=== PATIENT | male | born 1965 | race Caucasian/White ===

== ENCOUNTER 2018-06-20 16:38 | Inpatient (IN) | payer MEDICAID, OTHER ==
[~2018-06-20] VITALS: Ht 165.1 cm; Wt 73.9 kg
--- NOTE | 2018-06-20 17:24 | ERD ---
ER Documentation Chief Complaint Chief Complaint COUGH AND CHEST CONGESTION - SENT BY PCP WITH CD HPI 53-year-old gentleman who presents with his daughter who is interpreting in Tun[place]ian. The patient has had greater than 1 year of not feeling well. The patient went to a clinic recently and had a chest x-ray that showed possible le ft-sided effusion versus abnormality. Patient was sent to the emergency room for further evaluation. The patient does describe a cough for this timeframe that is dry nonproductive without hemoptysis. No fevers or chills. No pleuritic pain. ROS All systems reviewed and are negative except as per history of present illness. Allergies Allergies: Coded Allergies: No Known Allergy (Unverified , 06/20/18) FmHx Family History: No diabetes Physical Exam Vitals Vital Signs Date Temp Pulse Resp B/P (MAP) Pulse Ox O2 O2 Flow FiO2 Time Delivery Rate 06/20/18 Nasal 2 17:05 Cannula 06/20/18 99.3 93 17 154/101 96 16:41 (118) Physical Exam General: Well developed, well nourished, no acute distress Head: Normocephalic, atraumatic. Eyes: Pupils equally reactive, EOM intact ENT: Moist mucous membranes Neck: Supple, no lymphadenopathy Respiratory: Lungs clear bilaterally, no distress Cardiovascular: RRR, no murmurs, rubs, or gallops Abdominal: Soft, non-tender, non-distended, no peritoneal signs : Deferred MSK: No edema, no unilateral swelling, 5/5 strength Neurologic: Alert and oriented, moving all extremities, normal speech, no focal weakness, no cerebellar signs Skin: No rash Psych: Normal mood Result Diagram: 06/20/18 1722 06/20/18 1722 Results 24 hrs Laboratory Tests Test 06/20/18 17:22 White Blood Count 11.4 10^3/ul Red Blood Count 5.21 10^6/ul Hemoglobin 15.1 g/dl Hematocrit 44.6 % Mean Corpuscular Volume 85.6 fl Mean Corpuscular Hemoglobin 29.0 pg Mean Corpuscular Hemoglobin Concent 33.9 g/dl Red Cell Distribution Width 12.8 % Platelet Count 385 10^3/UL Mean Platelet Volume 9.0 fl Immature Granulocytes % 0.400 % Neutrophils % 70.6 % Lymphocytes % 19.2 % Monocytes % 7.5 % Eosinophils % 1.8 % Basophils % 0.5 % Nucleated Red Blood Cells % 0.0 /100WBC Immature Granulocytes # 0.040 10^3/ul Neutrophils # 8.1 10^3/ul Lymphocytes # 2.2 10^3/ul Monocytes # 0.9 10^3/ul Eosinophils # 0.2 10^3/ul Basophils # 0.1 10^3/ul Nucleated Red Blood Cells # 0.0 10^3/ul Prothrombin Time 13.8 Sec Prothrombin Time Ratio 1.1 INR International Normalized Ratio 1.05 Activated Partial Thromboplast Time 31.4 Sec Sodium Level 140 mmol/L Potassium Level 3.8 mmol/L Chloride Level 106 mmol/L Carbon Dioxide Level 24 mmol/L Anion Gap 10 Blood Urea Nitrogen 16 mg/dl Creatinine 0.76 mg/dl Est Glomerular Filtrat Rate mL/min > 60 mL/min Glucose Level 108 mg/dl Calcium Level 9.3 mg/dl Troponin I 0.014 ng/ml B-Type Natriuretic Peptide 41 PG/ML Current Medications Medications Dose Sig/Ji Start Time Status Last (Trade) Ordered Route PRN Stop Time Admin Dose Reason Admin Ondansetron 4 mg BRIDGE ORDER 06/20/18 HCl (Zofran PRN IV 20:00 Inj) NAUSEA/VOMITI 06/21/18 19:59 NG 650 mg ER BRIDGE 06/20/18 Acetaminophen PRN PO 20:00 (Tylenol .MILD PAIN 06/21/18 19:59 Tab) 1-3 OR TEMP Procedures/MDM EKG, MONITORS, & DIAGNOSTIC IMAGING: EKG: I reviewed and interpreted a 12-lead EKG. Rhythm: Normal sinus rhythm ST Changes: No contiguous ST segment elevations T waves: No contiguous T wave inversions Impression: No evidence of acute cardiac ischemia CT chest: IMPRESSION: 1. Very large, partially loculated, left pleural effusion. Near complete atelectasis of the left lung with relative aeration of the apex. 2. Suggestion of left pleural nodularity, most notably at the left lung apex measuring up to 2 cm in this region. Recommend CT chest with IV contrast for further evaluation. Neoplastic involvement not excluded. LAB INTERPRETATION: I reviewed the laboratory testing and it shows no evidence of acute process MEDICAL DECISION MAKING: The patient's presentation is consistent with greater than 1 year of not feeling well, abnormal chest x-ray. The differential is broad but strongly concerning for possible malignant process. Patient will benefit from laboratory testing to evaluate for cardiopulmonary process. CT imaging to definitively identify pulmonary process and abnormality. No signs or symptoms concerning for pulmonary embolism given the duration of symptoms I do not believe a CT PA would be indicated. ER COURSE: * CT consistent with a large left-sided pleural effusion concerning for malignant process. No evidence of pneumonia. Given duration of symptoms no indication for antibiotics. Admission for thoracentesis and further workup appropriate. CONSULTATION: None DISPOSITION PLAN: Accepting care team and consultations: I discussed the current laboratory data, diagnostic imaging and emergency care provided. Admitting team: Dr. Suero Admitting team indication: Insurance directed Departure Diagnosis: Primary Impression: Shortness of breath Additional Impression: Pleural effusion, left Condition: Stable NORAH CHEATHAM MD Jun 20, 2018 17:24
[2018-06-20] MEDS ORDERED: ACETAMINOPHEN 325 MG TAB PO PRN ×2 (20:00→20:30)
[2018-06-20] MEDS ORDERED: ONDANSETRON 4 MG INJ IV PRN (20:00)
[2018-06-20] MEDS ORDERED: ONDANSETRON 4 MG INJ IV STA (20:05)
[2018-06-20] MEDS ORDERED: morphine 4 MG/ML VIAL IV STA (20:05)
[2018-06-20] MEDS ORDERED: IOHEXOL 300MG/ML 150 ML BTL ONE (20:12)
[2018-06-20] MEDS ORDERED: SOD CHLORIDE 0.9% 100 ML ONE (20:12)
[2018-06-20] MEDS ORDERED: ONDANSETRON 4 MG TAB PO PRN (20:30)
[2018-06-20] MEDS ORDERED: NACL 0.9% 3 ML SYG IV SCH (20:30)
[2018-06-20] MEDS ORDERED: ALBUTEROL/IPRATROPIUM (NEB) 3 ML AMP HHN PRN (20:30)
[2018-06-20] MEDS ORDERED: DOCUSATE SODIUM 100 MG CAP PO PRN (20:30)
[2018-06-20] MEDS ORDERED: ENALAPRILAT 1.25 MG INJ IV PRN (20:30)
[2018-06-20 21:15] VITALS: BP 125/88; PULSE 87; RESP 19
[2018-06-20 21:25] VITALS: Ht 165.1 cm; Wt 73.9 kg
--- NOTE | 2018-06-20 21:27 | HP ---
Date/Time of Note Date/Time of Note DATE: 06/20/18 TIME: 21:26 Assessment/Plan VTE Prophylaxis SCD applied (from Nsg): Yes Pharmacological prophylaxis: NA/contraindicated Pharm contraindication: low risk/ambulating Lines/Catheters IV Catheter Type (from Nrsg): Saline Lock Assessment/Plan Hospital Course This is a 53-year-old male being admitted to the [facility] floor for: #1 left-sided lung mass with large pleural effusion: Concern for underlying malignancy. CT scan does show signs of a lung mass as well as effusion. At the current time will order a ultrasound-guided thoracentesis of the left lung with pleural fluid and cytology analysis. Will consult of hematology, and pulmonology Dr. Cai. #2 history of lung nodule/lesion: Patient apparently had a lung nodule lesion found back in 2011. Patient unfortunately did not pursue any further workup according to the son. #3 DVT GI prophylaxis: SCDs, no GI prophylaxis indicated Further treatment strategy will be implemented as per the clinical course. Result Diagram: 06/20/18 1722 06/20/18 1722 Results 24hrs Laboratory Tests Test 06/20/18 17:22 06/20/18 20:54 White Blood Count 11.4 H Red Blood Count 5.21 Hemoglobin 15.1 Hematocrit 44.6 Mean Corpuscular Volume 85.6 Mean Corpuscular Hemoglobin 29.0 Mean Corpuscular Hemoglobin Concent 33.9 Red Cell Distribution Width 12.8 Platelet Count 385 Mean Platelet Volume 9.0 Immature Granulocytes % 0.400 Neutrophils % 70.6 Lymphocytes % 19.2 Monocytes % 7.5 Eosinophils % 1.8 Basophils % 0.5 Nucleated Red Blood Cells % 0.0 Immature Granulocytes # 0.040 H Neutrophils # 8.1 H Lymphocytes # 2.2 Monocytes # 0.9 Eosinophils # 0.2 Basophils # 0.1 Nucleated Red Blood Cells # 0.0 Prothrombin Time 13.8 15.0 H Prothrombin Time Ratio 1.1 1.2 INR International Normalized Ratio 1.05 1.17 Activated Partial Thromboplast Time 31.4 30.1 Sodium Level 140 Potassium Level 3.8 Chloride Level 106 Carbon Dioxide Level 24 Anion Gap 10 Blood Urea Nitrogen 16 Creatinine 0.76 Est Glomerular Filtrat Rate mL/min > 60 Glucose Level 108 Calcium Level 9.3 Troponin I 0.014 B-Type Natriuretic Peptide 41 HPI/ROS Admit Date/Time Admit Date/Time Jun 20, 2018 at 19:35 Hx of Present Illness cc: sent from clinic abnormal chest xray. This is a 53-year-old male who presented from an outside clinic after have an abnormal chest x-ray. family members at the bedside. He does report that over the last month or so they have been noticing that he has had a cough. And when he is walking he has been noticeably more tired and having shortness of breath. Denies any recent fevers chills or nausea vomiting or diarrhea. Patient apparently was told that he had a lung nodule in 2011 however patient did not follow-up on this. His cough is nonproductive and he denies any hemoptysis. Denies any recent weight loss or chills or night sweats. Hx of smoking in the past. Allergies: NKDA Medications: None ROS Const: As per HPI Eyes : No pain discharge or redness or change in visual acuity ENT: No pain, sore throat, congestion, congestion, dysphagia or discharge Respiratory: As per HPI Cardiovascular: No chest pain, palpitation, PND, or edema GI : no change in appetite, abdominal pain, nausea, vomiting, diarrhea, constipation, or change in the color his stool Genitourinary: No dysuria, hematuria, flank pain , discharge or CVA tenderness Musculoskeletal: No joint pain, back pain, neck pain, restricted range of motion in neck or joints Skin: No rash, bruising or hives Neuro: No headache, dizziness, syncope, seizure, focal weakness Endocrine: No polyuria, polydipsia, temperature intolerance Psych: No hallucination, depression, anxiety or suicidal ideation PMH/Family/Social Past Medical History Medical History: no pertinent history Medications Current Medications Ondansetron HCl (Zofran Inj) 4 mg BRIDGE ORDER PRN IV NAUSEA/VOMITING; Start 06/20/18 at 20:00; Stop 06/21/18 at 19:59 IV Flush (NS 3 ml) 3 ml PER PROTOCOL IV ; Start 06/20/18 at 20:30 Ondansetron HCl (Zofran Tab) 4 mg Q6H PRN PO NAUSEA/VOMITING; Start 06/20/18 at 20:30 Acetaminophen (Tylenol Tab) 650 mg Q6H PRN PO .PAIN 1-3 OR TEMP; Start 06/20/18 at 20:30 Acetaminophen/ Hydrocodone Bitart ([place] (5/325)) 1 tab Q6H PRN PO .MOD PAIN 4- 6; Start 06/20/18 at 20:30 Docusate Sodium (Colace) 100 mg Q12H PRN PO .CONSTIPATION; Start 06/20/18 at 20:30 Bisacodyl (Dulcolax) 5 mg DAILY PRN PO .CONSTIPATION; Start 06/20/18 at 20:30 Enalaprilat (Vasotec Iv) 0.625 mg Q4H PRN IV ELEVATED BLOOD PRESSURE; Start 06/20/18 at 20:30 Albuterol/ Ipratropium (Duoneb) 3 ml Q4H RESP THERAPY PRN HHN SHORTNESS OF BREATH; Start 06/20/18 at 20:30 Benzonatate (Tessalon) 100 mg TID PO ; Start 06/20/18 at 21:00 Coded Allergies: No Known Allergy (Unverified , 06/20/18) Past Surgical History Past Surgical Hx: no surgical history Family History Significant Family History: no pertinent family hx Social History Alcohol Use: occasionally Smoking Status: Former smoker Drug Use: none Exam/Review of Systems Vital Signs Vitals Vital Signs Date Temp Pulse Resp B/P (MAP) Pulse Ox O2 O2 Flow FiO2 Time Delivery Rate 06/20/18 99.2 89 19 126/97 97 Nasal 20.0 20:58 (107) Cannula Exam Exam General: Patient is currently lying in bed he does not appear to be in any acute distress. HEENT: Atraumatic, normocephalic. The pupils are equal, round and reactive. Extraocular motor are intact Neck: Supple with full range of motion. No rigidity or meningismus Chest: Nontender Lungs: Diminished breath sounds throughout the left lung field, crackles,, good air movement and aeration to the right lung field Heart: Normal S1-S2, Regular rhythm and rate. Abdomen: Soft , nontender, nondistended , bowel sounds are present. No guarding no rebound tenderness , No masses or organomegaly. No costovertebral temporal angle mass Extremities: Normal to inspection, no edema no cyanosis Neurologic: Normal mental status, speech normal, cranial nerves II through XII are intact, motor and sensory are intact, Additional Comments PROCEDURE: CT Chest without contrast CLINICAL INDICATION: SOB and abnormal CXR x 1 yr TECHNIQUE: CT scan of the chest without contrast was performed on a multidetector CT scanner. The patient was scanned without intravenous contrast. Coronal and sagittal reformatted images were obtained from the axial source images. DICOM images are available. CTDIvol equals 11.86 mGy and the total exam DLP equals 506.78 mGy-cm. One or more of the following dose reduction techniques were used: - Automated exposure control. - Adjustment of the mA and/or kV according to patient size. - Use of iterative reconstruction technique. COMPARISON: FINDINGS: Lungs, Pleura, Airway: There is a very large, partially loculated, left pleural effusion causing contralateral rightward mediastinal shift. The left lung is nearly completely collapsed/atelectatic, with relative aeration of the lung apex. There is suggestion of pleural nodularity, most prominently at the left lung apex measuring approximately 2 cm (series 3 image 26). The right lung is clear other than mild dependent change of the right lung base Cardiovascular, Mediastinum: The heart is normal in size. There is no pericardial effusion. Ascending aorta measures up to 4 cm in diameter. Suboptimal evaluation of an underdistended esophagus is grossly unremarkable. Thyroid: Visualized portions are unremarkable. Lymph nodes: No adenopathy, noting limited evaluation of hilar nodes without IV contrast. Bones: Normal. Upper Abdomen: Visualized upper abdomen is unremarkable within limits of an unenhanced exam. IMPRESSION: 1. Very large, partially loculated, left pleural effusion. Near complete atelectasis of the left lung with relative aeration of the apex. 2. Suggestion of left pleural nodularity, most notably at the left lung apex measuring up to 2 cm in this region. Recommend CT chest with IV contrast for further evaluation. Neoplastic involvement not excluded. RPTAT: HH Physician Ivy Date Time Electronically viewed and signed by Physician Ivy on 06/20/2018 18:52 RP/ CC: NORAH CHEATHAM MD [id number] EKG: . Rhythm: Normal sinus rhythm ST Changes: No contiguous ST segment elevations T waves: No contiguous T wave inversions Impression: No evidence of acute cardiac ischemia TON GASCA Jun 20, 2018 21:27
[2018-06-20] MEDS: BENZONATATE 100 MG CAP PO SCH (21:36)
[2018-06-21] VITALS (10 sets, daily range): BP systolic 107–145; BP diastolic 73–89; PULSE 72–94; RESP 16–18
[2018-06-21] MEDS: HYDROCODONE/APAP (5/325) TAB PO PRN ×2 (04:42→20:11)
[2018-06-21] MEDS ORDERED: IOHEXOL 300MG/ML 150 ML BTL ONE (06:28)
[2018-06-21] MEDS ORDERED: LIDOCAINE 1% (MPF) 5 ML VIAL ONE (09:17)
[2018-06-21] MEDS: BENZONATATE 100 MG CAP PO SCH ×3 (09:40→20:06)
--- NOTE | 2018-06-21 12:38 | CONS ---
Assessment/Plan Assessment/Plan Hospital Course (Demo Recall) pleasant 53 yo with large pleural effusion and nodularity concerning for malignancy -no liver mets -s/p thoracentesis, send for cytology. if this is non small cell lung ca, would order mutational testing such as ALK, ROS, PDL1, EGFR, TMB, MET, RET, Her 2 -check MRI brain to rule out brain mets -malignant pleural effusion would stage him as Stage IV and he would not be a surgical candidate -check CEA -await above workup discussed with daughter at bedside Consultation Date/Type/Reason Admit Date/Time Jun 20, 2018 at 19:35 Date/Time of Note DATE: 06/21/18 TIME: 12:35 Hx of Present Illness This is a 53-year-old male came to Er for abnormal CXR showing lung mass and large effusion. Notes SOb with lying down and with exertion. No hemoptysis or weight loss. Apparently had Lung nodule 2011 but did not followup. Ct chest with contrast showed 06/20/18: Large left pleural effusion with near complete left lung atelectasis. The superior left upper lobe is partially aerated. Multifocal enhancing left pleural nodularity, consistent with neoplasm. CT AP with and w/o contrast showed 06/20/18: No CT evidence of mass, lymphadenopathy, or acute inflammatory process of the abdomen or pelvis. Redemonstrated large left pleural effusion with nodular regions of left pleural thickening. He will be undergoing pleurx placement and is s/p drainage of 2L via thoracentesis He is a lifetime non smoker, he is exposed to chemicals in paint Constitutional: no complaints, improved Eyes: no complaints ENT: no complaints Respiratory: cough, shortness of breath Cardiovascular: no complaints Gastrointestinal: no complaints Genitourinary: no complaints Musculoskeletal: no complaints Skin: no complaints Neurologic: no complaints Past Medical History Medical History: no pertinent history Medications Current Medications Ondansetron HCl (Zofran Inj) 4 mg BRIDGE ORDER PRN IV NAUSEA/VOMITING; Start 06/20/18 at 20:00; Stop 06/21/18 at 19:59 IV Flush (NS 3 ml) 3 ml PER PROTOCOL IV ; Start 06/20/18 at 20:30 Ondansetron HCl (Zofran Tab) 4 mg Q6H PRN PO NAUSEA/VOMITING; Start 06/20/18 at 20:30 Acetaminophen (Tylenol Tab) 650 mg Q6H PRN PO .PAIN 1-3 OR TEMP; Start 06/20/18 at 20:30 Acetaminophen/ Hydrocodone Bitart ([place] (5/325)) 1 tab Q6H PRN PO .MOD PAIN 4- 6 Last administered on 06/21/18at 04:42; Admin Dose 1 TAB; Start 06/20/18 at 20:30 Docusate Sodium (Colace) 100 mg Q12H PRN PO .CONSTIPATION; Start 06/20/18 at 20:30 Bisacodyl (Dulcolax) 5 mg DAILY PRN PO .CONSTIPATION; Start 06/20/18 at 20:30 Enalaprilat (Vasotec Iv) 0.625 mg Q4H PRN IV ELEVATED BLOOD PRESSURE; Start 06/20/18 at 20:30 Albuterol/ Ipratropium (Duoneb) 3 ml Q4H RESP THERAPY PRN HHN SHORTNESS OF BREATH; Start 06/20/18 at 20:30 Benzonatate (Tessalon) 100 mg TID PO Last administered on 06/21/18at 09:40; Admin Dose 100 MG; Start 06/20/18 at 21:00 Allergies: Coded Allergies: No Known Allergy (Unverified , 06/20/18) Past Surgical History Past Surgical Hx: no surgical history Social History Alcohol Use: occasionally Smoking Status: Never smoker Drug Use: none Exam/Review of Systems Exam Vitals Vital Signs Date Temp Pulse Resp B/P (MAP) Pulse Ox O2 O2 Flow FiO2 Time Delivery Rate 06/21/18 73 16 107/73 96 Nasal 09:16 (84) Cannula 06/21/18 97.6 08:03 06/21/18 2.0 08:00 Constitutional: alert, oriented, well developed Psych: no complaints, nl mood/affect Eyes: nl conjunctiva, EOMI, nl lids, nl sclera, PERRL Gastrointestinal: soft, nl liver, spleen, non-tender Musculoskeletal: nl extremities to inspection, nl gait and stance Results Result Diagram: 06/21/1816 06/21/18 0516 Results 24hrs Laboratory Tests Test 06/20/18 17:22 06/20/18 20:54 06/21/18 05:16 06/21/18 09:10 White Blood Count 11.4 H 10.1 Red Blood Count 5.21 4.90 Hemoglobin 15.1 14.1 Hematocrit 44.6 42.2 Mean Corpuscular 85.6 86.1 Volume Mean Corpuscular 29.0 28.8 L Hemoglobin Mean Corpuscular 33.9 33.4 Hemoglobin Concen t Red Cell 12.8 12.8 Distribution Width Platelet Count 385 374 Mean Platelet 9.0 8.9 Volume Immature 0.400 0.400 Granulocytes % Neutrophils % 70.6 61.3 Lymphocytes % 19.2 25.2 Monocytes % 7.5 9.3 Eosinophils % 1.8 3.2 Basophils % 0.5 0.6 Nucleated Red 0.0 0.0 Blood Cells % Immature 0.040 H 0.040 H Granulocytes # Neutrophils # 8.1 H 6.2 Lymphocytes # 2.2 2.5 Monocytes # 0.9 0.9 Eosinophils # 0.2 0.3 Basophils # 0.1 0.1 Nucleated Red 0.0 0.0 Blood Cells # Prothrombin Time 13.8 15.0 H Prothrombin Time 1.1 1.2 Ratio INR International 1.05 1.17 Normalized Ratio Activated 31.4 30.1 Partial Thrombopl ast Time Sodium Level 140 137 Potassium Level 3.8 3.9 Chloride Level 106 103 Carbon Dioxide 24 25 Level Anion Gap 10 9 Blood Urea 16 16 Nitrogen Creatinine 0.76 0.73 Est Glomerular > 60 > 60 Filtrat Rate mL/min Glucose Level 108 107 Calcium Level 9.3 9.0 Troponin I 0.014 B-Type 41 Natriuretic Peptide Hemoglobin A1c 5.6 Magnesium Level 2.2 Total Bilirubin 0.6 Direct Bilirubin 0.00 Indirect 0.6 Bilirubin Aspartate Amino 21 Transf (AST/SGOT) Alanine 38 Aminotransferase (ALT/SGPT) Alkaline 84 Phosphatase Lactate 379 1053 #H Dehydrogenase Total Protein 6.7 4.4 #L Albumin 3.6 Globulin 3.10 Albumin/Globulin 1.16 Ratio Triglycerides 90 Level Cholesterol Level 114 LDL Cholesterol, 70 Calculated HDL Cholesterol 26 L Cholesterol/HDL 4.3 Ratio Alpha Fetoprotein 1.10 Carcinoembryonic 1.6 Antigen CA 19-9 Antigen 4.9 CA 125 Antigen 10.5 Thyroid 2.420 Stimulating Hormone (TSH) Pathologist YES Review (Hematolog y) Body Fluid Type THORACENTESIS FL UID Body Fluid Volume 1050.0 Body Fluid Color YELLOW Body Fluid HAZY Appearance Body Fluid WBC 431 Body Fluid RBC 2000 (Auto) Body Fluid 14.2 Polynuclear WBCs (%) Body Fluid 85.8 Mononuclear Cells % Auto Body Fluid 93 Glucose Body Fluid Total 4.4 Protein Body Fluid 1060 Lactate Dehydroge nase Body Fluid 44 Amylase Medications Medication Current Medications Ondansetron HCl (Zofran Inj) 4 mg BRIDGE ORDER PRN IV NAUSEA/VOMITING; Start 06/20/18 at 20:00; Stop 06/21/18 at 19:59 IV Flush (NS 3 ml) 3 ml PER PROTOCOL IV ; Start 06/20/18 at 20:30 Ondansetron HCl (Zofran Tab) 4 mg Q6H PRN PO NAUSEA/VOMITING; Start 06/20/18 at 20:30 Acetaminophen (Tylenol Tab) 650 mg Q6H PRN PO .PAIN 1-3 OR TEMP; Start 06/20/18 at 20:30 Acetaminophen/ Hydrocodone Bitart ([place] (5/325)) 1 tab Q6H PRN PO .MOD PAIN 4- 6 Last administered on 06/21/18at 04:42; Admin Dose 1 TAB; Start 06/20/18 at 20:30 Docusate Sodium (Colace) 100 mg Q12H PRN PO .CONSTIPATION; Start 06/20/18 at 20:30 Bisacodyl (Dulcolax) 5 mg DAILY PRN PO .CONSTIPATION; Start 06/20/18 at 20:30 Enalaprilat (Vasotec Iv) 0.625 mg Q4H PRN IV ELEVATED BLOOD PRESSURE; Start 06/20/18 at 20:30 Albuterol/ Ipratropium (Duoneb) 3 ml Q4H RESP THERAPY PRN HHN SHORTNESS OF BREATH; Start 06/20/18 at 20:30 Benzonatate (Tessalon) 100 mg TID PO Last administered on 06/21/18at 09:40; Admin Dose 100 MG; Start 06/20/18 at 21:00 JERRICA LUNDBERG Jun 21, 2018 12:38
--- NOTE | 2018-06-21 14:20 | CONS ---
DATE OF ADMISSION: 06/20/2018 DATE OF CONSULTATION: REASON FOR CONSULTATION: Shortness of breath. Thank you, Dr. Suero, for this consultation. HISTORY OF PRESENT ILLNESS: This is a 53-year-old gentleman with no significant past medical history who presents with several-day history of increasing shortness of breath, orthopnea, PND, found to stevens ve significantly large left pleural effusion with compressive atelectasis. Denies any weight loss. There is no travel history. No sick contacts. No hemoptysis or hematemesis. Apparently had a histo ry of lung nodule in 2011. PAST MEDICAL HISTORY: A remote tobacco history. No history of TB. MEDICATIONS: Per chart. ALLERGIES: None. SOCIAL HISTORY: Current nonsmoker, no alcohol, no history of drug use. FAMILY HISTORY: Noncontributory. SYSTEMS REVIEW: A 12-point review of systems was negative other than that mentioned above. PHYSICAL EXAMINATION: GENERAL: Well-nourished, well-developed gentleman, comfortable at rest, no acute distress. VITAL SIGNS: Currently afebrile, pulse is 70, blood pressure 112/80, O2 saturation 96% on 2 L nasal cannula. NECK: Supple. No JVD or lymphadenopathy. CARDIAC: S1, S2, no added sounds or murmurs. CHEST: Diminished air entry bilaterally. ABDOMEN: Soft, nontender. No guarding or rebound. EXTREMITIES: No cyanosis, clubbing, 1+ edema. NEUROLOGIC: Generalized weakness, but no focal deficits. LABORATORY DATA: White count 10.1, hemoglobin 14.1, platelets within normal limits. INR was 1.17. Chemistry within normal limits. Initial pleural fluid studies demonstrate an elevated LDH and protei n consistent with an exudative effusion. ASSESSMENT: New onset left pleural effusion concerning for possible underlying malignant process in a patient with a remote tobacco history. The patient underwent 2 liter thoracentesis today, but stil l has probably 3 to 4 liters still in his pleural cavity. He will require chest tube placement for c omplete resolution of pleural effusion and then require subsequent CT chest when lung is reexpanded. Pleural fluid will be sent for cytology in addition. Dictated By: AMIRA SAMPSON MD SV/SADAF Conf#: [id number] DID#: [id number] CC: TON SUERO MD;*End*
--- NOTE | 2018-06-21 14:52 | PN ---
Date/Time of Note Date/Time of Note DATE: 06/21/18 TIME: 14:45 Assessment/Plan VTE Prophylaxis Risk score (from Ns)>0 risk: 1 SCD applied (from Ns): Yes Pharmacological prophylaxis: NA/contraindicated Pharm contraindication: low risk/ambulating Lines/Catheters IV [facility] Type (from [email or web address] Saline Lock Assessment/Plan Assessment/Plan 1. Left sided pleural effusion - concerning for malignancy in setting of remote smoking history and lung nodule - thoracentesis performed this am with 2L removed but repeat CXR shows no change. Pulm requested chest tube placement and will need repeat CT scan once lung reexpands - fluid sent for cytology - fluid appears exudative - Pulmonology on board and appreciate recommendations - Oncology recommendations appreciate as well and if non small cell will need further mutation studies ordered - CEA, CA 19, and CA125 within normal limits - MRI brain ordered to rule out mets - CT A/P negative for acute abnormalities except for large pleural effusion 2. h/o lung nodule in 2012 - patient did not follow up on lung nodule findings 3. Disposition - Awaiting placement of chest tube and will await cytology results of pleural fl uid Result Diagram: 06/21/18 0516 06/21/18 0516 Results 24hrs Laboratory Tests Test 06/20/18 17:22 06/20/18 20:54 06/21/18 05:16 06/21/18 09:10 White Blood Count 11.4 H 10.1 Red Blood Count 5.21 4.90 Hemoglobin 15.1 14.1 Hematocrit 44.6 42.2 Mean Corpuscular 85.6 86.1 Volume Mean Corpuscular 29.0 28.8 L Hemoglobin Mean Corpuscular 33.9 33.4 Hemoglobin Concen t Red Cell 12.8 12.8 Distribution Width Platelet Count 385 374 Mean Platelet 9.0 8.9 Volume Immature 0.400 0.400 Granulocytes % Neutrophils % 70.6 61.3 Lymphocytes % 19.2 25.2 Monocytes % 7.5 9.3 Eosinophils % 1.8 3.2 Basophils % 0.5 0.6 Nucleated Red 0.0 0.0 Blood Cells % Immature 0.040 H 0.040 H Granulocytes # Neutrophils # 8.1 H 6.2 Lymphocytes # 2.2 2.5 Monocytes # 0.9 0.9 Eosinophils # 0.2 0.3 Basophils # 0.1 0.1 Nucleated Red 0.0 0.0 Blood Cells # Prothrombin Time 13.8 15.0 H Prothrombin Time 1.1 1.2 Ratio INR International 1.05 1.17 Normalized Ratio Activated 31.4 30.1 Partial Thrombopl ast Time Sodium Level 140 137 Potassium Level 3.8 3.9 Chloride Level 106 103 Carbon Dioxide 24 25 Level Anion Gap 10 9 Blood Urea 16 16 Nitrogen Creatinine 0.76 0.73 Est Glomerular > 60 > 60 Filtrat Rate mL/min Glucose Level 108 107 Calcium Level 9.3 9.0 Troponin I 0.014 B-Type 41 Natriuretic Peptide Hemoglobin A1c 5.6 Magnesium Level 2.2 Total Bilirubin 0.6 Direct Bilirubin 0.00 Indirect 0.6 Bilirubin Aspartate Amino 21 Transf (AST/SGOT) Alanine 38 Aminotransferase (ALT/SGPT) Alkaline 84 Phosphatase Lactate 379 1053 #H Dehydrogenase Total Protein 6.7 4.4 #L Albumin 3.6 Globulin 3.10 Albumin/Globulin 1.16 Ratio Triglycerides 90 Level Cholesterol Level 114 LDL Cholesterol, 70 Calculated HDL Cholesterol 26 L Cholesterol/HDL 4.3 Ratio Alpha Fetoprotein 1.10 Carcinoembryonic 1.6 Antigen CA 19-9 Antigen 4.9 CA 125 Antigen 10.5 Thyroid 2.420 Stimulating Hormone (TSH) Pathologist YES Review (Hematolog y) Body Fluid Type THORACENTESIS FL UID Body Fluid Volume 1050.0 Body Fluid Color YELLOW Body Fluid HAZY Appearance Body Fluid WBC 431 Body Fluid RBC 2000 (Auto) Body Fluid 14.2 Polynuclear WBCs (%) Body Fluid 85.8 Mononuclear Cells % Auto Body Fluid 93 Glucose Body Fluid Total 4.4 Protein Body Fluid 1060 Lactate Dehydroge nase Body Fluid 44 Amylase Subjective 24 Hr Interval Summary Free Text/Dictation Patient denies any acute issues or respiratory distress. Discussed plan of care with family at bedside. Exam/Review of Systems Exam Vitals Vital Signs Date Temp Pulse Resp B/P (MAP) Pulse Ox O2 O2 Flow FiO2 Time Delivery Rate 06/21/18 97.4 75 18 132/75 93 Nasal 14:30 (94) Cannula 06/21/18 2.0 08:00 Exam General: Patient is currently lying in bed he does not appear to be in any acute distress. Neck: Supple Chest: Nontender Lungs: Diminished breath sounds left with basilar crackles, clear right, no wheezing appreciated Heart: Normal S1-S2, Regular rhythm and rate. no murmurs Abdomen: Soft , nontender, nondistended , bowel sounds are present. No guarding no rebound tenderness Extremities: Normal to inspection, no edema no cyanosis Results Results 24hrs Laboratory Tests Test 06/20/18 17:22 06/20/18 20:54 06/21/18 05:16 06/21/18 09:10 White Blood Count 11.4 H 10.1 Red Blood Count 5.21 4.90 Hemoglobin 15.1 14.1 Hematocrit 44.6 42.2 Mean Corpuscular 85.6 86.1 Volume Mean Corpuscular 29.0 28.8 L Hemoglobin Mean Corpuscular 33.9 33.4 Hemoglobin Concen t Red Cell 12.8 12.8 Distribution Width Platelet Count 385 374 Mean Platelet 9.0 8.9 Volume Immature 0.400 0.400 Granulocytes % Neutrophils % 70.6 61.3 Lymphocytes % 19.2 25.2 Monocytes % 7.5 9.3 Eosinophils % 1.8 3.2 Basophils % 0.5 0.6 Nucleated Red 0.0 0.0 Blood Cells % Immature 0.040 H 0.040 H Granulocytes # Neutrophils # 8.1 H 6.2 Lymphocytes # 2.2 2.5 Monocytes # 0.9 0.9 Eosinophils # 0.2 0.3 Basophils # 0.1 0.1 Nucleated Red 0.0 0.0 Blood Cells # Prothrombin Time 13.8 15.0 H Prothrombin Time 1.1 1.2 Ratio INR International 1.05 1.17 Normalized Ratio Activated 31.4 30.1 Partial Thrombopl ast Time Sodium Level 140 137 Potassium Level 3.8 3.9 Chloride Level 106 103 Carbon Dioxide 24 25 Level Anion Gap 10 9 Blood Urea 16 16 Nitrogen Creatinine 0.76 0.73 Est Glomerular > 60 > 60 Filtrat Rate mL/min Glucose Level 108 107 Calcium Level 9.3 9.0 Troponin I 0.014 B-Type 41 Natriuretic Peptide Hemoglobin A1c 5.6 Magnesium Level 2.2 Total Bilirubin 0.6 Direct Bilirubin 0.00 Indirect 0.6 Bilirubin Aspartate Amino 21 Transf (AST/SGOT) Alanine 38 Aminotransferase (ALT/SGPT) Alkaline 84 Phosphatase Lactate 379 1053 #H Dehydrogenase Total Protein 6.7 4.4 #L Albumin 3.6 Globulin 3.10 Albumin/Globulin 1.16 Ratio Triglycerides 90 Level Cholesterol Level 114 LDL Cholesterol, 70 Calculated HDL Cholesterol 26 L Cholesterol/HDL 4.3 Ratio Alpha Fetoprotein 1.10 Carcinoembryonic 1.6 Antigen CA 19-9 Antigen 4.9 CA 125 Antigen 10.5 Thyroid 2.420 Stimulating Hormone (TSH) Pathologist YES Review (Hematolog y) Body Fluid Type THORACENTESIS FL UID Body Fluid Volume 1050.0 Body Fluid Color YELLOW Body Fluid HAZY Appearance Body Fluid WBC 431 Body Fluid RBC 2000 (Auto) Body Fluid 14.2 Polynuclear WBCs (%) Body Fluid 85.8 Mononuclear Cells % Auto Body Fluid 93 Glucose Body Fluid Total 4.4 Protein Body Fluid 1060 Lactate Dehydroge nase Body Fluid 44 Amylase Medications Medication Current Medications Ondansetron HCl (Zofran Inj) 4 mg BRIDGE ORDER PRN IV NAUSEA/VOMITING; Start 06/20/18 at 20:00; Stop 06/21/18 at 19:59 IV Flush (NS 3 ml) 3 ml PER PROTOCOL IV ; Start 06/20/18 at 20:30 Ondansetron HCl (Zofran Tab) 4 mg Q6H PRN PO NAUSEA/VOMITING; Start 06/20/18 at 20:30 Acetaminophen (Tylenol Tab) 650 mg Q6H PRN PO .PAIN 1-3 OR TEMP; Start 06/20/18 at 20:30 Acetaminophen/ Hydrocodone Bitart ([place] (5/325)) 1 tab Q6H PRN PO .MOD PAIN 4- 6 Last administered on 06/21/18at 04:42; Admin Dose 1 TAB; Start 06/20/18 at 20:30 Docusate Sodium (Colace) 100 mg Q12H PRN PO .CONSTIPATION; Start 06/20/18 at 20:30 Bisacodyl (Dulcolax) 5 mg DAILY PRN PO .CONSTIPATION; Start 06/20/18 at 20:30 Enalaprilat (Vasotec Iv) 0.625 mg Q4H PRN IV ELEVATED BLOOD PRESSURE; Start 06/20/18 at 20:30 Albuterol/ Ipratropium (Duoneb) 3 ml Q4H RESP THERAPY PRN HHN SHORTNESS OF BREATH; Start 06/20/18 at 20:30 Benzonatate (Tessalon) 100 mg TID PO Last administered on 06/21/18at 14:04; Admin Dose 100 MG; Start 06/20/18 at 21:00 SHASHI SHIPLEY MD Jun 21, 2018 14:52
[2018-06-21] MEDS ORDERED: LIDOCAINE 1% (MDV) 20 ML INJ ONE (16:09)
[2018-06-21] MEDS ORDERED: morphine 2 MG INJ IV PRN (21:30)
[2018-06-22 02:25] VITALS: BP 115/68; PULSE 67; RESP 18
[2018-06-22 07:59] VITALS: BP 117/79; PULSE 71; RESP 18
[2018-06-22] MEDS: BENZONATATE 100 MG CAP PO SCH ×3 (08:39→21:28)
[2018-06-22] MEDS: BISACODYL (EC) 5 MG TAB PO PRN (08:48)
--- NOTE | 2018-06-22 11:39 | CONS ---
Consult Date/Type/Reason Admit Date/Time Jun 20, 2018 at 19:35 Initial Consult Date Type of Consult Pulmonary Date/Time of Note DATE: 06/22/18 TIME: 11:38 Subjective Patient comfortable following chest tube placement and significant drainage. Objective Vital Signs Date Temp Pulse Resp B/P (MAP) Pulse Ox O2 O2 Flow FiO2 Time Delivery Rate 06/22/18 97.7 71 18 117/79 98 07:59 (92) 06/21/18 Nasal 2.0 20:00 Cannula Intake and Output 06/21/18 06/21/18 06/22/18 1515:00 23:00 07:00 IntakeIntake Total 240 ml 240 ml 250 ml OutputOutput Total 1900 ml 2250 ml 600 ml BalanceBalance -1660 ml -2010 ml -350 ml Exam PHYSICAL EXAMINATION: GENERAL: Well-nourished, well-developed gentleman, comfortable at rest, no acute distress. VITAL SIGNS: NECK: Supple. No JVD or lymphadenopathy. CARDIAC: S1, S2, no added sounds or murmurs. CHEST: Diminished air entry bilaterally. ABDOMEN: Soft, nontender. No guarding or rebound. EXTREMITIES: No cyanosis, clubbing, 1+ edema. NEUROLOGIC: Generalized weakness, but no focal deficits. Results/Medications Result Diagram: 06/22/18 0439 06/22/18 0439 Results 24 hrs Laboratory Tests Test 06/22/18 04:39 White Blood Count 11.3 H Red Blood Count 5.31 Hemoglobin 15.2 Hematocrit 44.6 Mean Corpuscular Volume 84.0 Mean Corpuscular Hemoglobin 28.6 L Mean Corpuscular Hemoglobin Concent 34.1 Red Cell Distribution Width 12.5 Platelet Count 367 Mean Platelet Volume 9.0 Immature Granulocytes % 0.300 Neutrophils % 67.5 Lymphocytes % 21.7 Monocytes % 7.9 Eosinophils % 2.2 Basophils % 0.4 Nucleated Red Blood Cells % 0.0 Immature Granulocytes # 0.030 Neutrophils # 7.6 H Lymphocytes # 2.5 Monocytes # 0.9 Eosinophils # 0.3 Basophils # 0.1 Nucleated Red Blood Cells # 0.0 Sodium Level 138 Potassium Level 3.9 Chloride Level 102 Carbon Dioxide Level 27 Anion Gap 9 Blood Urea Nitrogen 14 Creatinine 0.72 Est Glomerular Filtrat Rate mL/min > 60 Glucose Level 106 Calcium Level 8.9 Phosphorus Level 4.5 Magnesium Level 2.3 Medications Current Medications IV Flush (NS 3 ml) 3 ml PER PROTOCOL IV ; Start 06/20/18 at 20:30 Ondansetron HCl (Zofran Tab) 4 mg Q6H PRN PO NAUSEA/VOMITING; Start 06/20/18 at 20:30 Acetaminophen (Tylenol Tab) 650 mg Q6H PRN PO .PAIN 1-3 OR TEMP; Start 06/20/18 at 20:30 Acetaminophen/ Hydrocodone Bitart ([place] (5/325)) 1 tab Q6H PRN PO .MOD PAIN 4- 6 Last administered on 06/21/18 20:11; Admin Dose 1 TAB; Start 06/20/18 at 20:30 Docusate Sodium (Colace) 100 mg Q12H PRN PO .CONSTIPATION Last administered on 06/22/18 08:48; Admin Dose 100 MG; Start 06/20/18 at 20:30 Bisacodyl (Dulcolax) 5 mg DAILY PRN PO .CONSTIPATION Last administered on 06/22/18 08:48; Admin Dose 5 MG; Start 06/20/18 at 20:30 Enalaprilat (Vasotec Iv) 0.625 mg Q4H PRN IV ELEVATED BLOOD PRESSURE; Start 06/20/18 at 20:30 Albuterol/ Ipratropium (Duoneb) 3 ml Q4H RESP THERAPY PRN HHN SHORTNESS OF BREATH; Start 06/20/18 at 20:30 Benzonatate (Tessalon) 100 mg TID PO Last administered on 06/22/18 08:39; Admin Dose 100 MG; Start 06/20/18 at 21:00 Morphine Sulfate (morphine) 1 mg Q4H PRN IV SEVERE PAIN LEVEL 7-10 Last administered on 06/21/18 21:23; Admin Dose 1 MG; Start 06/21/18 at 21:30 Assessment/Plan Hospital Course (Demo Recall) Assessment 1. Acute hypoxemic respiratory failure secondary to large left pleural effusion. 2. Pleural effusion exudative in nature concerning for possible malignancy lymphoma versus primary lung CA. 3. History of remote tobacco use. Plan 1. Continue chest tube drainage. 2. Await pleural fluid cytology results 3. CT chest noncontrast tomorrow to reevaluate left lung parenchyma following drainage of pleural effusion. Long discussion with family at bedside. AMIRA SAMPSON MD, [facility] Jun 22, 2018 11:39
--- NOTE | 2018-06-22 13:16 | PN ---
Date/Time of Note Date/Time of Note DATE: 06/22/18 TIME: 13:11 Assessment/Plan VTE Prophylaxis Risk score (from Ns)>0 risk: 2 SCD applied (from Ns): Yes Pharmacological prophylaxis: NA/contraindicated Pharm contraindication: low risk/ambulating Lines/Catheters [facility] Saline Lock Assessment/Plan Assessment/Plan 1. Left sided pleural effusion s/p chest tube placement - high concern for malignancy - Pulm on board and appreciate recommendations. CT scan chest tomorrow to reevaluate L leg parenchyma given fluid drained since previous CT scan - MRI, CT A/P negative for any signs of metastasis - Fluid sent for cx and cytology. bacterial cx no growth to day. AFB and fungal cx still pending - Oncology recommendations appreciated and awaiting results of cytology - CEA, CA 19, and CA125 within normal limits 2. h/o lung nodule in 2011 - patient did not follow up on lung nodule findings 3. Disposition - Continue chest tube to gravity. Will order repeat CT scan chest tomorrow to assess Left lung Result Diagram: 06/22/18 0439 06/22/18 0439 Results 24hrs Laboratory Tests Test 06/22/18 04:39 White Blood Count 11.3 H Red Blood Count 5.31 Hemoglobin 15.2 Hematocrit 44.6 Mean Corpuscular Volume 84.0 Mean Corpuscular Hemoglobin 28.6 L Mean Corpuscular Hemoglobin Concent 34.1 Red Cell Distribution Width 12.5 Platelet Count 367 Mean Platelet Volume 9.0 Immature Granulocytes % 0.300 Neutrophils % 67.5 Lymphocytes % 21.7 Monocytes % 7.9 Eosinophils % 2.2 Basophils % 0.4 Nucleated Red Blood Cells % 0.0 Immature Granulocytes # 0.030 Neutrophils # 7.6 H Lymphocytes # 2.5 Monocytes # 0.9 Eosinophils # 0.3 Basophils # 0.1 Nucleated Red Blood Cells # 0.0 Sodium Level 138 Potassium Level 3.9 Chloride Level 102 Carbon Dioxide Level 27 Anion Gap 9 Blood Urea Nitrogen 14 Creatinine 0.72 Est Glomerular Filtrat Rate mL/min > 60 Glucose Level 106 Calcium Level 8.9 Phosphorus Level 4.5 Magnesium Level 2.3 Subjective 24 Hr Interval Summary Free Text/Dictation Patients doing well and remains comfortable respiratory roth. Chest tube in place and draining serous fluid. Exam/Review of Systems Exam Vitals Vital Signs Date Temp Pulse Resp B/P (MAP) Pulse Ox O2 O2 Flow FiO2 Time Delivery Rate 06/22/18 97.7 71 18 117/79 98 07:59 (92) 06/21/18 Nasal 2.0 20:00 Cannula Intake and Output 06/21/18 06/21/18 06/22/18 1515:00 23:00 07:00 IntakeIntake Total 240 ml 240 ml 250 ml OutputOutput Total 1900 ml 2250 ml 600 ml BalanceBalance -1660 ml -2010 ml -350 ml Exam General: Patient is currently lying in bed he does not appear to be in any acute distress. Neck: Supple Chest: Nontender Lungs: Diminished breath sounds left with basilar crackles, clear right, no wheezing appreciated Heart: Normal S1-S2, Regular rhythm and rate. no murmurs Abdomen: Soft , nontender, nondistended , bowel sounds are present. No guarding no rebound tenderness Extremities: Normal to inspection, no edema no cyanosis Results Results 24hrs Laboratory Tests Test 06/22/18 04:39 White Blood Count 11.3 H Red Blood Count 5.31 Hemoglobin 15.2 Hematocrit 44.6 Mean Corpuscular Volume 84.0 Mean Corpuscular Hemoglobin 28.6 L Mean Corpuscular Hemoglobin Concent 34.1 Red Cell Distribution Width 12.5 Platelet Count 367 Mean Platelet Volume 9.0 Immature Granulocytes % 0.300 Neutrophils % 67.5 Lymphocytes % 21.7 Monocytes % 7.9 Eosinophils % 2.2 Basophils % 0.4 Nucleated Red Blood Cells % 0.0 Immature Granulocytes # 0.030 Neutrophils # 7.6 H Lymphocytes # 2.5 Monocytes # 0.9 Eosinophils # 0.3 Basophils # 0.1 Nucleated Red Blood Cells # 0.0 Sodium Level 138 Potassium Level 3.9 Chloride Level 102 Carbon Dioxide Level 27 Anion Gap 9 Blood Urea Nitrogen 14 Creatinine 0.72 Est Glomerular Filtrat Rate mL/min > 60 Glucose Level 106 Calcium Level 8.9 Phosphorus Level 4.5 Magnesium Level 2.3 Medications Medication Current Medications IV Flush (NS 3 ml) 3 ml PER PROTOCOL IV ; Start 06/20/18 at 20:30 Ondansetron HCl (Zofran Tab) 4 mg Q6H PRN PO NAUSEA/VOMITING; Start 06/20/18 at 20:30 Acetaminophen (Tylenol Tab) 650 mg Q6H PRN PO .PAIN 1-3 OR TEMP; Start 06/20/18 at 20:30 Acetaminophen/ Hydrocodone Bitart ([place] (5/325)) 1 tab Q6H PRN PO .MOD PAIN 4- 6 Last administered on 06/21/18 20:11; Admin Dose 1 TAB; Start 06/20/18 at 20:30 Docusate Sodium (Colace) 100 mg Q12H PRN PO .CONSTIPATION Last administered on 06/22/18 08:48; Admin Dose 100 MG; Start 06/20/18 at 20:30 Bisacodyl (Dulcolax) 5 mg DAILY PRN PO .CONSTIPATION Last administered on 06/22/18 08:48; Admin Dose 5 MG; Start 06/20/18 at 20:30 Enalaprilat (Vasotec Iv) 0.625 mg Q4H PRN IV ELEVATED BLOOD PRESSURE; Start 06/20/18 at 20:30 Albuterol/ Ipratropium (Duoneb) 3 ml Q4H RESP THERAPY PRN HHN SHORTNESS OF BREATH; Start 06/20/18 at 20:30 Benzonatate (Tessalon) 100 mg TID PO Last administered on 06/22/18 08:39; Admin Dose 100 MG; Start 06/20/18 at 21:00 Morphine Sulfate (morphine) 1 mg Q4H PRN IV SEVERE PAIN LEVEL 7-10 Last administered on 06/21/18 21:23; Admin Dose 1 MG; Start 06/21/18 at 21:30 SHASHI SHIPLEY MD Jun 22, 2018 13:16
[2018-06-22 13:52] VITALS: BP 115/66; PULSE 84; RESP 18
--- NOTE | 2018-06-22 17:05 | CONS ---
Assessment/Plan Assessment/Plan Assessment/Plan (Daily) TThis is a 53-year-old male came to [facility] for abnormal CXR showing lung mass and large effusion. Notes SOb with lying down and with exertion. No hemoptysis or weight loss. Apparently had Lung nodule 2011 but did not followup. - 06/20/18 Ct chest with contrast showed: Large left pleural effusion with near complete left lung atelectasis. The superior left upper lobe is partially aerated.Multifocal enhancing left pleural nodularity, consistent with neoplasm. No CT evidence of mass, lymphadenopathy, or acute inflammatory process of the abdomen or pelvis. -Re-demonstrated large left pleural effusion with nodular regions of left pleural thickening. -SP pleurx placement and is s/p drainage of 2L via thoracentesis # 06/20/18 CT AP with and w/o contrast showed : - No CT evidence of mass, lymphadenopathy, or acute inflammatory process of the abdomen or pelvis. # He is a lifetime non smoker, he is exposed to chemicals in paint. Patient seen in collaboration with Dr Garza. Consultation Date/Type/Reason Admit Date/Time Jun 20, 2018 at 19:35 Initial Consult Date Type of Consult ONCOLOGY Reason for Consultation LUNG MASS Date/Time of Note DATE: 06/22/18 TIME: 16:59 24 HR Interval Summary Free Text/Dictation c/o shortness lying down and with exertion. denies any hemoptysis or weight loss. Apparently had Lung nodule 2011 but did not followup. family at bed side- all Qs answered. no new issues reported last night dw staff Constitutional: requiring O2 Detailed Summary Eyes: no complaints ENT: no complaints Respiratory: shortness of breath (on exertion/lying down), other (left chest- inscion pain ) Cardiovascular: no complaints Gastrointestinal: no complaints Genitourinary: no complaints Musculoskeletal: other (generelized weakness) Skin: no complaints Neurologic: no complaints Endocrine: no complaints Psychological: nl mood/affect Immunologic: no complaints Exam/Review of Systems Exam Vitals Vital Signs Date Temp Pulse Resp B/P (MAP) Pulse Ox O2 O2 Flow FiO2 Time Delivery Rate 06/22/18 98.8 84 18 115/66 98 Nasal 13:52 (82) Cannula 06/22/18 2.0 08:00 Intake and Output 06/21/18 06/21/18 06/22/18 1515:00 23:00 07:00 IntakeIntake Total 240 ml 240 ml 250 ml OutputOutput Total 1900 ml 2250 ml 600 ml BalanceBalance -1660 ml -2010 ml -350 ml Constitutional: alert, oriented, well developed Psych: nl mood/affect Head: normocephalic Eyes: nl lids, nl sclera ENMT: nl external ears & nose Neck: non-tender Respiratory: diminished breath sounds (left lung sound diminhes > rt lung ), other (left chest pleural cath noted; intact; drainig bloody drrainage) Cardiovascular: nl pulses, other (s1s2) Gastrointestinal: soft, non-tender Musculoskeletal: nl extremities to inspection Extremities: normal pulses Neurological: nl mental status, nl speech Skin: nl turgor Results Result Diagram: 06/22/1843806/22/18438 Results 24hrs Laboratory Tests Test 06/22/18 04:39 White Blood Count 11.3 H Red Blood Count 5.31 Hemoglobin 15.2 Hematocrit 44.6 Mean Corpuscular Volume 84.0 Mean Corpuscular Hemoglobin 28.6 L Mean Corpuscular Hemoglobin Concent 34.1 Red Cell Distribution Width 12.5 Platelet Count 367 Mean Platelet Volume 9.0 Immature Granulocytes % 0.300 Neutrophils % 67.5 Lymphocytes % 21.7 Monocytes % 7.9 Eosinophils % 2.2 Basophils % 0.4 Nucleated Red Blood Cells % 0.0 Immature Granulocytes # 0.030 Neutrophils # 7.6 H Lymphocytes # 2.5 Monocytes # 0.9 Eosinophils # 0.3 Basophils # 0.1 Nucleated Red Blood Cells # 0.0 Sodium Level 138 Potassium Level 3.9 Chloride Level 102 Carbon Dioxide Level 27 Anion Gap 9 Blood Urea Nitrogen 14 Creatinine 0.72 Est Glomerular Filtrat Rate mL/min > 60 Glucose Level 106 Calcium Level 8.9 Phosphorus Level 4.5 Magnesium Level 2.3 Medications Medication Current Medications IV Flush (NS 3 ml) 3 ml PER PROTOCOL IV ; Start 06/20/18 at 20:30 Ondansetron HCl (Zofran Tab) 4 mg Q6H PRN PO NAUSEA/VOMITING; Start 06/20/18 at 20:30 Acetaminophen (Tylenol Tab) 650 mg Q6H PRN PO .PAIN 1-3 OR TEMP; Start 06/20/18 at 20:30 Acetaminophen/ Hydrocodone Bitart ([place] (5/325)) 1 tab Q6H PRN PO .MOD PAIN 4- 6 Last administered on 06/21/18 20:11; Admin Dose 1 TAB; Start 06/20/18 at 20:30 Docusate Sodium (Colace) 100 mg Q12H PRN PO .CONSTIPATION Last administered on 06/22/18 08:48; Admin Dose 100 MG; Start 06/20/18 at 20:30 Bisacodyl (Dulcolax) 5 mg DAILY PRN PO .CONSTIPATION Last administered on 06/22/18 08:48; Admin Dose 5 MG; Start 06/20/18 at 20:30 Enalaprilat (Vasotec Iv) 0.625 mg Q4H PRN IV ELEVATED BLOOD PRESSURE; Start 06/20/18 at 20:30 Albuterol/ Ipratropium (Duoneb) 3 ml Q4H RESP THERAPY PRN HHN SHORTNESS OF BREATH; Start 06/20/18 at 20:30 Benzonatate (Tessalon) 100 mg TID PO Last administered on 06/22/18 13:40; Admin Dose 100 MG; Start 06/20/18 at 21:00 Morphine Sulfate (morphine) 1 mg Q4H PRN IV SEVERE PAIN LEVEL 7-10 Last administered on 06/21/18 21:23; Admin Dose 1 MG; Start 06/21/18 at 21:30 JOE WARNER Jun 22, 2018 17:05
[2018-06-22 19:52] VITALS: BP 120/71; PULSE 96; RESP 18
[2018-06-23 01:51] VITALS: BP 108/73; PULSE 81
[2018-06-23 07:11] VITALS: BP 109/72; PULSE 75; RESP 17
[2018-06-23] MEDS: BENZONATATE 100 MG CAP PO SCH ×3 (08:13→20:55)
[2018-06-23] MEDS ORDERED: POLYETHYLENE GLYCOL 17 GM PACKET PO PRN (09:00)
--- NOTE | 2018-06-23 10:33 | CONS ---
Consult Date/Type/Reason Admit Date/Time Jun 20, 2018 at 19:35 Initial Consult Date Type of Consult Pulmonary Date/Time of Note DATE: 06/23/18 TIME: 10:31 Subjective Patient comfortable this morning. Less shortness of breath. Decreased chest tube output also. Objective Vital Signs Date Temp Pulse Resp B/P (MAP) Pulse Ox O2 O2 Flow FiO2 Time Delivery Rate 06/23/18 98.3 75 17 109/72 94 Nasal 07:11 (84) Cannula 06/23/18 2.0 05:37 Intake and Output 06/22/18 06/22/18 06/23/18 1515:00 23:00 07:00 IntakeIntake Total 640 ml 240 ml OutputOutput Total 700 ml 1050 ml BalanceBalance 640 ml -700 ml -810 ml Exam PHYSICAL EXAMINATION: GENERAL: Well-nourished, well-developed gentleman, comfortable at rest, no acute distress. VITAL SIGNS: NECK: Supple. No JVD or lymphadenopathy. CARDIAC: S1, S2, 2/6 systolic ejection murmur. CHEST: Diminished air entry bilaterally. ABDOMEN: Soft, nontender. No guarding or rebound. EXTREMITIES: No cyanosis, clubbing, no edema NEUROLOGIC: Generalized weakness, but no focal deficits. Results/Medications Result Diagram: 06/22/18 0439 06/22/18 0439 Medications Current Medications IV Flush (NS 3 ml) 3 ml PER PROTOCOL IV ; Start 06/20/18 at 20:30 Ondansetron HCl (Zofran Tab) 4 mg Q6H PRN PO NAUSEA/VOMITING; Start 06/20/18 at 20:30 Acetaminophen (Tylenol Tab) 650 mg Q6H PRN PO .PAIN 1-3 OR TEMP; Start 06/20/18 at 20:30 Acetaminophen/ Hydrocodone Bitart ([place] (5/325)) 1 tab Q6H PRN PO .MOD PAIN 4- 6 Last administered on 06/21/18at 20:11; Admin Dose 1 TAB; Start 06/20/18 at 20:30 Docusate Sodium (Colace) 100 mg Q12H PRN PO .CONSTIPATION Last administered on 06/22/18at 08:48; Admin Dose 100 MG; Start 06/20/18 at 20:30 Bisacodyl (Dulcolax) 5 mg DAILY PRN PO .CONSTIPATION Last administered on 06/22/18at 08:48; Admin Dose 5 MG; Start 06/20/18 at 20:30 Enalaprilat (Vasotec Iv) 0.625 mg Q4H PRN IV ELEVATED BLOOD PRESSURE; Start 06/20/18 at 20:30 Albuterol/ Ipratropium (Duoneb) 3 ml Q4H RESP THERAPY PRN HHN SHORTNESS OF BREATH; Start 06/20/18 at 20:30 Benzonatate (Tessalon) 100 mg TID PO Last administered on 06/23/18at 08:13; Admin Dose 100 MG; Start 06/20/18 at 21:00 Morphine Sulfate (morphine) 1 mg Q4H PRN IV SEVERE PAIN LEVEL 7-10 Last administered on 06/21/18at 21:23; Admin Dose 1 MG; Start 06/21/18 at 21:30 Polyethylene Glycol (Miralax) 17 gm DAILY PRN PO CONSTIPATION; Start 06/23/18 at 09:00 Assessment/Plan Hospital Course (Demo Recall) Assessment 1. Acute hypoxemic respiratory failure secondary to large left pleural effusion. 2. Pleural effusion exudative in nature concerning for possible malignancy lymphoma versus primary lung CA. 3. History of remote tobacco use. Plan 1. Continue chest tube drainage. 2. Await pleural fluid cytology results 3. CT chest noncontrast today following drainage of pleural effusion. Discussed with patient and family at bedside. AMIRA SAMPSON MD, [facility] Jun 23, 2018 10:33
--- NOTE | 2018-06-23 12:33 | PN ---
Date/Time of Note Date/Time of Note DATE: 06/23/18 TIME: 12:29 Assessment/Plan VTE Prophylaxis Risk score (from Ns)>0 risk: 2 SCD applied (from Ns): Yes Pharmacological prophylaxis: NA/contraindicated Pharm contraindication: low risk/ambulating Lines/Catheters [facility] [place] Urinary Cath still in place: No Assessment/Plan Assessment/Plan 1. Left sided pleural effusion s/p chest tube placement - Repeat CT scan shows minimal pleural effusion and changes consistent with carcinomatosis - Pulm on board and appreciate recommendations. Continue chest tube - MRI, CT A/P negative for any signs of metastasis - Pleural fluid cytology pending. cx negative to date - Oncology recommendations appreciated. - CEA, CA 19, and CA125 within normal limits 2. h/o lung nodule in 2011 - patient did not follow up on lung nodule findings 3. Disposition - Continue chest tube drainage. Fluid cytology pending and plan of care based on results Result Diagram: 06/22/18 0439 06/22/18 0439 Subjective 24 Hr Interval Summary Free Text/Dictation Patient denies any acute issues. CT findings discussed with family and patient. Per nursing, patient has minimal drainage from chest tube but increases with ambulation. Exam/Review of Systems Exam Vitals Vital Signs Date Temp Pulse Resp B/P (MAP) Pulse Ox O2 O2 Flow FiO2 Time Delivery Rate 06/23/18 Nasal 2.0 08:00 Cannula 06/23/18 98.3 75 17 109/72 94 07:11 (84) Intake and Output 06/22/18 06/22/18 06/23/18 1515:00 23:00 07:00 IntakeIntake Total 640 ml 240 ml OutputOutput Total 700 ml 1050 ml BalanceBalance 640 ml -700 ml -810 ml Exam General: Patient is currently lying in bed he does not appear to be in any acute distress. Neck: Supple Chest: Nontender Lungs: Diminished breath sounds, no wheezing appreciated Heart: Normal S1-S2, Regular rhythm and rate. no murmurs Abdomen: Soft , nontender, nondistended , bowel sounds are present. No guarding no rebound tenderness Extremities: Normal to inspection, no edema no cyanosis Medications Medication Current Medications IV Flush (NS 3 ml) 3 ml PER PROTOCOL IV ; Start 06/20/18 at 20:30 Ondansetron HCl (Zofran Tab) 4 mg Q6H PRN PO NAUSEA/VOMITING; Start 06/20/18 at 20:30 Acetaminophen (Tylenol Tab) 650 mg Q6H PRN PO .PAIN 1-3 OR TEMP; Start 06/20/18 at 20:30 Acetaminophen/ Hydrocodone Bitart ([place] (5/325)) 1 tab Q6H PRN PO .MOD PAIN 4- 6 Last administered on 06/21/18 20:11; Admin Dose 1 TAB; Start 06/20/18 at 20:30 Docusate Sodium (Colace) 100 mg Q12H PRN PO .CONSTIPATION Last administered on 06/22/18 08:48; Admin Dose 100 MG; Start 06/20/18 at 20:30 Bisacodyl (Dulcolax) 5 mg DAILY PRN PO .CONSTIPATION Last administered on 06/22/18 08:48; Admin Dose 5 MG; Start 06/20/18 at 20:30 Enalaprilat (Vasotec Iv) 0.625 mg Q4H PRN IV ELEVATED BLOOD PRESSURE; Start 06/20/18 at 20:30 Albuterol/ Ipratropium (Duoneb) 3 ml Q4H RESP THERAPY PRN HHN SHORTNESS OF BREATH; Start 06/20/18 at 20:30 Benzonatate (Tessalon) 100 mg TID PO Last administered on 06/23/18 08:13; Admin Dose 100 MG; Start 06/20/18 at 21:00 Morphine Sulfate (morphine) 1 mg Q4H PRN IV SEVERE PAIN LEVEL 7-10 Last administered on 06/21/18 21:23; Admin Dose 1 MG; Start 06/21/18 at 21:30 Polyethylene Glycol (Miralax) 17 gm DAILY PRN PO CONSTIPATION; Start 06/23/18 at 09:00 SHASHI SHIPLEY MD Jun 23, 2018 12:33
--- NOTE | 2018-06-23 13:25 | CONS ---
Assessment/Plan Assessment/Plan Assessment/Plan (Daily) This is a 53-year-old male came to Er for abnormal CXR showing lung mass and large effusion. Notes SOb with lying down and with exertion. No hemoptysis or weight loss. Apparently had Lung nodule 2011 but did not followup. - 06/20/18 Ct chest with contrast showed: Large left pleural effusion with near complete left lung atelectasis. The superior left upper lobe is partially aerated.Multifocal enhancing left pleural nodularity, consistent with neoplasm. No CT evidence of mass, lymphadenopathy, or acute inflammatory process of the abdomen or pelvis. -Re-demonstrated large left pleural effusion with nodular regions of left pleural thickening. -SP pleurx placement and is s/p drainage of 2L via thoracentesis # 06/20/18 CT AP with and w/o contrast showed : No CT evidence of mass, lymphadenopathy, or acute inflammatory process of the abdomen or pelvis. - 06/23/18 CT chest without IV contrast : Left pleural carcinomatosis. Interval placement of a left-sided pleural drainage catheter. Mild residual left pleural effusion is noted, significantly decreased in size. Tiny residual left pneumothorax is present (less than 5%). - He is a lifetime non smoker, he is exposed to chemicals in paint. Patient seen in collaboration with Dr Garza. Consultation Date/Type/Reason Admit Date/Time Jun 20, 2018 at 19:35 Initial Consult Date Type of Consult ONCOLOGY Reason for Consultation LUNG MASS Date/Time of Note DATE: 06/23/18 TIME: 13:18 24 HR Interval Summary Free Text/Dictation c/o shortness lying down and with exertion. denies any hemoptysis or weight loss. Apparently had Lung nodule 2011 but did not followup. will get repeated CT chest today family at bed side- all Qs answered. no new issues reported last night dw staff Constitutional: requiring O2 Exam/Review of Systems Exam Vitals Vital Signs Date Temp Pulse Resp B/P (MAP) Pulse Ox O2 O2 Flow FiO2 Time Delivery Rate 06/23/18 Nasal 2.0 08:00 Cannula 06/23/18 98.3 75 17 109/72 94 07:11 (84) Intake and Output 06/22/18 06/22/18 06/23/18 1515:00 23:00 07:00 IntakeIntake Total 640 ml 240 ml OutputOutput Total 700 ml 1050 ml BalanceBalance 640 ml -700 ml -810 ml Constitutional: alert Results Result Diagram: 06/22/18 0439 06/22/18 0439 Medications Medication Current Medications IV Flush (NS 3 ml) 3 ml PER PROTOCOL IV ; Start 06/20/18 at 20:30 Ondansetron HCl (Zofran Tab) 4 mg Q6H PRN PO NAUSEA/VOMITING; Start 06/20/18 at 20:30 Acetaminophen (Tylenol Tab) 650 mg Q6H PRN PO .PAIN 1-3 OR TEMP; Start 06/20/18 at 20:30 Acetaminophen/ Hydrocodone Bitart ([place] (5/325)) 1 tab Q6H PRN PO .MOD PAIN 4- 6 Last administered on 06/21/18 20:11; Admin Dose 1 TAB; Start 06/20/18 at 20:30 Docusate Sodium (Colace) 100 mg Q12H PRN PO .CONSTIPATION Last administered on 06/22/18 08:48; Admin Dose 100 MG; Start 06/20/18 at 20:30 Bisacodyl (Dulcolax) 5 mg DAILY PRN PO .CONSTIPATION Last administered on 06/22/18 08:48; Admin Dose 5 MG; Start 06/20/18 at 20:30 Enalaprilat (Vasotec Iv) 0.625 mg Q4H PRN IV ELEVATED BLOOD PRESSURE; Start 06/20/18 at 20:30 Albuterol/ Ipratropium (Duoneb) 3 ml Q4H RESP THERAPY PRN HHN SHORTNESS OF BREATH; Start 06/20/18 at 20:30 Benzonatate (Tessalon) 100 mg TID PO Last administered on 06/23/18 08:13; Admin Dose 100 MG; Start 06/20/18 at 21:00 Morphine Sulfate (morphine) 1 mg Q4H PRN IV SEVERE PAIN LEVEL 7-10 Last administered on 06/21/18 21:23; Admin Dose 1 MG; Start 06/21/18 at 21:30 Polyethylene Glycol (Miralax) 17 gm DAILY PRN PO CONSTIPATION; Start 06/23/18 at 09:00 JOE WARNER Jun 23, 2018 13:25
[2018-06-23 14:09] VITALS: BP 99/58; PULSE 86; RESP 17
[2018-06-23 19:41] VITALS: BP 118/75; PULSE 85; RESP 18
[2018-06-24 02:16] VITALS: BP 112/77; PULSE 79; RESP 18
[2018-06-24 07:51] VITALS: BP 115/78; PULSE 77; RESP 18
[2018-06-24] MEDS: BENZONATATE 100 MG CAP PO SCH ×3 (08:46→20:30)
[2018-06-24] MEDS: BISACODYL (EC) 5 MG TAB PO PRN (08:46)
--- NOTE | 2018-06-24 12:10 | CONS ---
Consult Date/Type/Reason Admit Date/Time Jun 20, 2018 at 19:35 Initial Consult Date Type of Consult Pulmonary Date/Time of Note DATE: 06/24/18 TIME: 12:09 Subjective Patient remained stable overnight. Decreased chest tube output. CT chest noted with pleural carcinomatosis. Objective Vital Signs Date Temp Pulse Resp B/P (MAP) Pulse Ox O2 O2 Flow FiO2 Time Delivery Rate 06/24/18 Nasal 2.0 08:30 Cannula 06/24/18 97.5 77 18 115/78 97 07:51 (90) Intake and Output 06/23/18 06/23/18 06/24/18 1515:00 23:00 07:00 IntakeIntake Total 600 ml 360 ml OutputOutput Total 1390 ml BalanceBalance 600 ml -1030 ml Exam PHYSICAL EXAMINATION: GENERAL: Well-nourished, well-developed gentleman, comfortable at rest, no acute distress. VITAL SIGNS: NECK: Supple. No JVD or lymphadenopathy. CARDIAC: S1, S2, 2/6 systolic ejection murmur. CHEST: Diminished air entry bilaterally. ABDOMEN: Soft, nontender. No guarding or rebound. EXTREMITIES: No cyanosis, clubbing, no edema NEUROLOGIC: Generalized weakness, but no focal deficits. Results/Medications Result Diagram: 06/24/188 06/24/188 Results 24 hrs Laboratory Tests Test 06/24/18 04:48 White Blood Count 11.2 H Red Blood Count 5.46 Hemoglobin 15.8 Hematocrit 46.6 Mean Corpuscular Volume 85.3 Mean Corpuscular Hemoglobin 28.9 L Mean Corpuscular Hemoglobin Concent 33.9 Red Cell Distribution Width 12.4 Platelet Count 396 Mean Platelet Volume 9.0 Immature Granulocytes % 0.400 Neutrophils % 65.7 Lymphocytes % 20.0 Monocytes % 8.7 Eosinophils % 4.5 Basophils % 0.7 Nucleated Red Blood Cells % 0.0 Immature Granulocytes # 0.040 H Neutrophils # 7.4 Lymphocytes # 2.2 Monocytes # 1.0 H Eosinophils # 0.5 Basophils # 0.1 Nucleated Red Blood Cells # 0.0 Sodium Level 137 Potassium Level 4.2 Chloride Level 101 Carbon Dioxide Level 28 Anion Gap 8 Blood Urea Nitrogen 17 Creatinine 0.71 Glucose Level 105 Calcium Level 8.9 Phosphorus Level 4.1 Magnesium Level 2.3 Albumin 3.4 Medications Current Medications IV Flush (NS 3 ml) 3 ml PER PROTOCOL IV ; Start 06/20/18 at 20:30 Ondansetron HCl (Zofran Tab) 4 mg Q6H PRN PO NAUSEA/VOMITING; Start 06/20/18 at 20:30 Acetaminophen (Tylenol Tab) 650 mg Q6H PRN PO .PAIN 1-3 OR TEMP; Start 06/20/18 at 20:30 Acetaminophen/ Hydrocodone Bitart ([place] (5/325)) 1 tab Q6H PRN PO .MOD PAIN 4- 6 Last administered on 06/21/18 20:11; Admin Dose 1 TAB; Start 06/20/18 at 20:30 Docusate Sodium (Colace) 100 mg Q12H PRN PO .CONSTIPATION Last administered on 06/22/18 08:48; Admin Dose 100 MG; Start 06/20/18 at 20:30 Bisacodyl (Dulcolax) 5 mg DAILY PRN PO .CONSTIPATION Last administered on 06/24/18 08:46; Admin Dose 5 MG; Start 06/20/18 at 20:30 Enalaprilat (Vasotec Iv) 0.625 mg Q4H PRN IV ELEVATED BLOOD PRESSURE; Start 06/20/18 at 20:30 Albuterol/ Ipratropium (Duoneb) 3 ml Q4H RESP THERAPY PRN HHN SHORTNESS OF BREATH; Start 06/20/18 at 20:30 Benzonatate (Tessalon) 100 mg TID PO Last administered on 06/24/18 08:46; Admin Dose 100 MG; Start 06/20/18 at 21:00 Morphine Sulfate (morphine) 1 mg Q4H PRN IV SEVERE PAIN LEVEL 7-10 Last administered on 06/21/18 21:23; Admin Dose 1 MG; Start 06/21/18 at 21:30 Polyethylene Glycol (Miralax) 17 gm DAILY PRN PO CONSTIPATION Last administered on 06/24/18 08:46; Admin Dose 17 GM; Start 06/23/18 at 09:00 Assessment/Plan Hospital Course (Demo Recall) Assessment 1. Acute hypoxemic respiratory failure secondary to large left pleural effusion. 2. Pleural effusion exudative in nature concerning for possible malignancy lymphoma versus primary lung CA. pleural carcinomatosis noted. 3. History of remote tobacco use. Plan 1. Continue chest tube drainage. 2. Await pleural fluid cytology results 3. If pleural fluid cytology negative patient will need thoracic surgery evaluation for pleural biopsy. Discussed with patient and family at bedside. AMIRA SAMPSON MD, [facility] Jun 24, 2018 12:10
--- NOTE | 2018-06-24 12:29 | PN ---
Date/Time of Note Date/Time of Note DATE: 06/24/18 TIME: 12:29 Objective Vitals Vital Signs Date Temp Pulse Resp B/P (MAP) Pulse Ox O2 O2 Flow FiO2 Time Delivery Rate 06/24/18 Nasal 2.0 08:30 Cannula 06/24/18 97.5 77 18 115/78 97 07:51 (90) Intake and Output 06/23/18 06/23/18 06/24/18 1515:00 23:00 07:00 IntakeIntake Total 600 ml 360 ml OutputOutput Total 1390 ml BalanceBalance 600 ml -1030 ml Results Result Diagram: 06/24/18 0448 06/24/18 0448 Medications Medications Current Medications IV Flush (NS 3 ml) 3 ml PER PROTOCOL IV ; Start 06/20/18 at 20:30 Ondansetron HCl (Zofran Tab) 4 mg Q6H PRN PO NAUSEA/VOMITING; Start 06/20/18 at 20:30 Acetaminophen (Tylenol Tab) 650 mg Q6H PRN PO .PAIN 1-3 OR TEMP; Start 06/20/18 at 20:30 Acetaminophen/ Hydrocodone Bitart ([place] (5/325)) 1 tab Q6H PRN PO .MOD PAIN 4- 6 Last administered on 06/21/18at 20:11; Admin Dose 1 TAB; Start 06/20/18 at 20:30 Docusate Sodium (Colace) 100 mg Q12H PRN PO .CONSTIPATION Last administered on 06/22/18 08:48; Admin Dose 100 MG; Start 06/20/18 at 20:30 Bisacodyl (Dulcolax) 5 mg DAILY PRN PO .CONSTIPATION Last administered on 06/24/18 08:46; Admin Dose 5 MG; Start 06/20/18 at 20:30 Enalaprilat (Vasotec Iv) 0.625 mg Q4H PRN IV ELEVATED BLOOD PRESSURE; Start 06/20/18 at 20:30 Albuterol/ Ipratropium (Duoneb) 3 ml Q4H RESP THERAPY PRN HHN SHORTNESS OF BREATH; Start 06/20/18 at 20:30 Benzonatate (Tessalon) 100 mg TID PO Last administered on 06/24/18 08:46; Admin Dose 100 MG; Start 06/20/18 at 21:00 Morphine Sulfate (morphine) 1 mg Q4H PRN IV SEVERE PAIN LEVEL 7-10 Last administered on 06/21/18at 21:23; Admin Dose 1 MG; Start 06/21/18 at 21:30 Polyethylene Glycol (Miralax) 17 gm DAILY PRN PO CONSTIPATION Last administered on 06/24/18at 08:46; Admin Dose 17 GM; Start 06/23/18 at 09:00 VTE Prophylaxis Risk score (from [facility]0 risk: 1 SCD applied (from [facility] [place] No SCD contraindication: other Lines/Catheters IV Catheter Type: Talavera in Place: No Assessment/Plan Hospital Course Subjective Patient doing well, breathing has improved with chest tube drainage Objective Physical exam General: Patient is laying in bed and answers questions appropriately Mentation: Patient is alert and oriented 4, Head: Normocephalic atraumatic Eyes: EOMI, pupils reactive to light Neck: Supple, nontender, midline Respiratory: Coarse to auscultation bilaterally Cardiovascular: regular rate, murmur heard Gastrointestinal: non-tender to palpation, bowel sounds heard. Neurological: Moves all extremities spontaneously Skin: No new skin lesions Assessment/Plan 1. Left sided pleural effusion s/p chest tube placement - Repeat CT scan shows minimal pleural effusion and changes consistent with carcinomatosis - Pulm on board and appreciate recommendations. Continue chest tube - MRI, CT A/P negative for any signs of metastasis - Pleural fluid cytology pending. cx negative to date - Oncology recommendations appreciated. - CEA, CA 19, and CA125 within normal limits 2. h/o lung nodule in 2011 - patient did not follow up on lung nodule findings 3. Disposition - Continue chest tube drainage. Fluid cytology pending and plan of care based on results. Specialists doubt infectious etiology at this time, patient not showing signs of active infection, no fevers will need to monitor closely. ISIDORO SHEPPARD Jun 24, 2018 12:29
[2018-06-24 13:34] VITALS: BP 111/78; PULSE 90; RESP 20
--- NOTE | 2018-06-24 14:13 | CONS ---
Assessment/Plan Assessment/Plan Hospital Course (Demo Recall) pleasant 53 yo with large pleural effusion and nodularity concerning for malignancy -no liver mets -s/p thoracentesis, send for cytology, await path report. if this is non small cell lung ca, would order mutational testing such as ALK, ROS, PDL1, EGFR, TMB, MET, RET, Her 2 -s/p pleurex - MRI brain done to rule out brain mets--NEGATIVE -malignant pleural effusion would stage him as Stage IV and he would not be a surgical candidate -await path report before we can make treatment recommendations once patient is stable from a medical perspective, he is ok for discharge and can follow up in my office to discuss final pathology results and treatment plan discussed with daughter at bedside Consultation Date/Type/Reason Admit Date/Time Jun 20, 2018 at 19:35 Initial Consult Date Date/Time of Note DATE: 06/24/18 TIME: 14:13 Exam/Review of Systems Exam Vitals Vital Signs Date Temp Pulse Resp B/P (MAP) Pulse Ox O2 O2 Flow FiO2 Time Delivery Rate 06/24/18 98.7 90 20 111/78 97 13:34 (89) 06/24/18 Nasal 2.0 08:30 Cannula Intake and Output 06/23/18 06/23/18 06/24/18 1515:00 23:00 07:00 IntakeIntake Total 600 ml 360 ml OutputOutput Total 1390 ml BalanceBalance 600 ml -1030 ml Results Result Diagram: 06/24/18 0448 06/24/18 0448 Results 24hrs Laboratory Tests Test 06/24/18 04:48 White Blood Count 11.2 H Red Blood Count 5.46 Hemoglobin 15.8 Hematocrit 46.6 Mean Corpuscular Volume 85.3 Mean Corpuscular Hemoglobin 28.9 L Mean Corpuscular Hemoglobin Concent 33.9 Red Cell Distribution Width 12.4 Platelet Count 396 Mean Platelet Volume 9.0 Immature Granulocytes % 0.400 Neutrophils % 65.7 Lymphocytes % 20.0 Monocytes % 8.7 Eosinophils % 4.5 Basophils % 0.7 Nucleated Red Blood Cells % 0.0 Immature Granulocytes # 0.040 H Neutrophils # 7.4 Lymphocytes # 2.2 Monocytes # 1.0 H Eosinophils # 0.5 Basophils # 0.1 Nucleated Red Blood Cells # 0.0 Sodium Level 137 Potassium Level 4.2 Chloride Level 101 Carbon Dioxide Level 28 Anion Gap 8 Blood Urea Nitrogen 17 Creatinine 0.71 Glucose Level 105 Calcium Level 8.9 Phosphorus Level 4.1 Magnesium Level 2.3 Albumin 3.4 Medications Medication Current Medications IV Flush (NS 3 ml) 3 ml PER PROTOCOL IV ; Start 06/20/18 at 20:30 Ondansetron HCl (Zofran Tab) 4 mg Q6H PRN PO NAUSEA/VOMITING; Start 06/20/18 at 20:30 Acetaminophen (Tylenol Tab) 650 mg Q6H PRN PO .PAIN 1-3 OR TEMP; Start 06/20/18 at 20:30 Acetaminophen/ Hydrocodone Bitart ([place] (5/325)) 1 tab Q6H PRN PO .MOD PAIN 4- 6 Last administered on 06/21/18 20:11; Admin Dose 1 TAB; Start 06/20/18 at 20:30 Docusate Sodium (Colace) 100 mg Q12H PRN PO .CONSTIPATION Last administered on 06/22/18 08:48; Admin Dose 100 MG; Start 06/20/18 at 20:30 Bisacodyl (Dulcolax) 5 mg DAILY PRN PO .CONSTIPATION Last administered on 06/24/18 08:46; Admin Dose 5 MG; Start 06/20/18 at 20:30 Enalaprilat (Vasotec Iv) 0.625 mg Q4H PRN IV ELEVATED BLOOD PRESSURE; Start 06/20/18 at 20:30 Albuterol/ Ipratropium (Duoneb) 3 ml Q4H RESP THERAPY PRN HHN SHORTNESS OF BREATH; Start 06/20/18 at 20:30 Benzonatate (Tessalon) 100 mg TID PO Last administered on 06/24/18 13:09; Admin Dose 100 MG; Start 06/20/18 at 21:00 Morphine Sulfate (morphine) 1 mg Q4H PRN IV SEVERE PAIN LEVEL 7-10 Last administered on 06/21/18 21:23; Admin Dose 1 MG; Start 06/21/18 at 21:30 Polyethylene Glycol (Miralax) 17 gm DAILY PRN PO CONSTIPATION Last administered on 06/24/18 08:46; Admin Dose 17 GM; Start 06/23/18 at 09:00 JERRICA LUNDBERG Jun 24, 2018 14:13
--- NOTE | 2018-06-24 14:21 | RADRPT ---
Echocardiogram Report Patient Name: FLORENCE LIZARRAGAPatient ID: [id number] : 1965 (53y 2m)Study Date: 06/21/2018 8:10:46 AM Gender: MAccession #: [id number] Tech: Alec Bañuelos RDCS Location: 8349 Ref.Physician: TON GASCA Height(Cm): BSA: Weight(Kg): Quality: Technically Difficult StudyAccount #: Procedures: Echocardiographic Report: Transthoracic echocardiogram with complete 2D, M-Mode, and doppler examination. Indications: large pleural effusion. Measurements: 2D/M Mode Doppler Measurement Value Normal Range Measurement Value Normal Range LVIDd 2D 4.0 [ 4.2 - 5.8 ] cm AV Mean Ramiro 1.4 [ 70.0 - 90.0 ] cm/sec LVIDs 2D 2.0 [ 2.5 - 4.0 ] cm AV Mean PG 9.0 [ 2.0 - 4.0 ] mmHg LVPWd 2D 1.0 [ 0.6 - 1.0 ] cm AV Peak Ramiro 2.0 [ 100.0 - 170.0 ] cm/sec IVSd 2D 1.0 [ 0.6 - 1.0 ] cm AV Peak PG 17.0 [ 2.0 - 9.0 ] mmHg IVS/LVPW 2D 1.0 ratio AV VTI 33.7 cm AoR Diam 2D 2.6 [ 2.6 - 3.4 ] cm LVOT Mean Ramiro 0.5 [ 60.0 - 80.0 ] cm/sec LA/Ao 2D 1 ratio LVOT Mean PG 1.0 [ 1.0 - 3.0 ] mmHg LA Dimen 2D 2.7 [ 3.0 - 4.0 ] cm LVOT Peak Ramiro 0.8 [ 70.0 - 110.0 ] cm/sec LVOT Peak PG 3.0 [ 2.0 - 6.0 ] mmHg LVOT VTI 16.5 [ 20.0 - 30.0 ] cm MV E Peak Ramiro 0.6 [ 60.0 - 130.0 ] cm/sec MV A Peak Ramiro 0.7 [ 100.0 - 120.0 ] cm/sec MV E/A 0.9 [ 0.8 - 1.5 ] ratio MV Decel Time 162 [ 104 - 258 ] msec Lat E` Ramiro 0.1 [ 10.0 - 15.0 ] cm/sec MV E/A 0.9 [ 0.8 - 1.5 ] ratio TR Peak Ramiro 2.0 [ 100.0 - 280.0 ] cm/sec TR Peak PG 16.0 mmHg RVSP 24.0 [ 10.0 - 36.0 ] mmHg RA Pressure 15.0 mmHg Findings: Left Ventricle: Overall, normal left ventricular systolic function. Not all segments visualized. Normal left ventricular cavity size. Mild concentric left ventricular hypertrophy. Ejection fraction is visually estimated at 55 %. Tissue Doppler/Mitral Doppler indices are consistent with impaired relaxation (Stage I diastolic dysfunction). Right Ventricle: Normal right ventricular size. Normal right ventricular systolic function. Left Atrium: The left atrium is normal in size. Right Atrium: The right atrium is normal in size. Mitral Valve: Mitral valve is not well visualized. Mild mitral annular calcification. Trace mitral regurgitation. Aortic Valve: No significant aortic stenosis or insufficiency. Aortic valve not well visualized. Trace aortic valve regurgitation. Tricuspid Valve: Tricuspid valve not well visualized. Estimated peak PA systolic pressure 31 mmHg. There is trace tricuspid regurgitation. Pulmonic Valve: Normal pulmonic valve appearance. Pericardium: Normal pericardium with no significant pericardial effusion. Pleural effusion seen. Aorta: Normal aortic root. IVC: Dilated IVC with respiratory collapse consistent with elevated right atrial pressure. Conclusions: Overall, normal left ventricular systolic function. Not all segments visualized. Normal left ventricular cavity size. Mild concentric left ventricular hypertrophy. Ejection fraction is visually estimated at 55 %. Tissue Doppler/Mitral Doppler indices are consistent with impaired relaxation (Stage I diastolic dysfunction). Normal right ventricular size. Normal right ventricular systolic function. No significant valvular stenosis or regurgitation seen. Normal pericardium with no significant pericardial effusion. Pleural effusion seen. Electronically Signed By: José Miguel Gates 2018-06-24 14:20:36 PDT
[2018-06-24 20:00] VITALS: BP 109/77; PULSE 88; RESP 19
[2018-06-25 02:00] VITALS: BP 104/71; PULSE 85; RESP 18
[2018-06-25 08:04] VITALS: BP 111/79; PULSE 95; RESP 20
[2018-06-25] MEDS: BENZONATATE 100 MG CAP PO SCH ×3 (09:10→21:14)
--- NOTE | 2018-06-25 10:44 | PN ---
Date/Time of Note Date/Time of Note DATE: 06/25/18 TIME: 10:44 Objective Vitals Vital Signs Date Temp Pulse Resp B/P (MAP) Pulse Ox O2 O2 Flow FiO2 Time Delivery Rate 06/25/18 2.0 08:06 06/25/18 98.2 95 20 111/79 94 08:04 (90) 06/24/18 Nasal 21:00 Cannula Intake and Output 06/24/18 06/24/18 06/25/18 1515:00 23:00 07:00 IntakeIntake Total 1080 ml 720 ml OutputOutput Total 20 ml BalanceBalance 1080 ml 700 ml Results Result Diagram: 06/25/18 0738 06/25/18 0738 Medications Medications Current Medications IV Flush (NS 3 ml) 3 ml PER PROTOCOL IV ; Start 06/20/18 at 20:30 Ondansetron HCl (Zofran Tab) 4 mg Q6H PRN PO NAUSEA/VOMITING; Start 06/20/18 at 20:30 Acetaminophen (Tylenol Tab) 650 mg Q6H PRN PO .PAIN 1-3 OR TEMP; Start 06/20/18 at 20:30 Acetaminophen/ Hydrocodone Bitart ([place] (5/325)) 1 tab Q6H PRN PO .MOD PAIN 4- 6 Last administered on 06/21/18at 20:11; Admin Dose 1 TAB; Start 06/20/18 at 20:30 Docusate Sodium (Colace) 100 mg Q12H PRN PO .CONSTIPATION Last administered on 06/22/18 08:48; Admin Dose 100 MG; Start 06/20/18 at 20:30 Bisacodyl (Dulcolax) 5 mg DAILY PRN PO .CONSTIPATION Last administered on 06/24/18 08:46; Admin Dose 5 MG; Start 06/20/18 at 20:30 Enalaprilat (Vasotec Iv) 0.625 mg Q4H PRN IV ELEVATED BLOOD PRESSURE; Start 06/20/18 at 20:30 Albuterol/ Ipratropium (Duoneb) 3 ml Q4H RESP THERAPY PRN HHN SHORTNESS OF BREATH; Start 06/20/18 at 20:30 Benzonatate (Tessalon) 100 mg TID PO Last administered on 06/25/18at 09:10; Admin Dose 100 MG; Start 06/20/18 at 21:00 Morphine Sulfate (morphine) 1 mg Q4H PRN IV SEVERE PAIN LEVEL 7-10 Last administered on 06/21/18at 21:23; Admin Dose 1 MG; Start 06/21/18 at 21:30 Polyethylene Glycol (Miralax) 17 gm DAILY PRN PO CONSTIPATION Last administered on 06/24/18at 08:46; Admin Dose 17 GM; Start 06/23/18 at 09:00 VTE Prophylaxis Risk score (from [facility])>0 risk: 1 SCD applied (from [facility]): No SCD contraindication: other Lines/Catheters IV Catheter Type: Talavera in Place: No Assessment/Plan Hospital Course Subjective Patient doing well, breathing continues to improve, still has chest tube Objective Physical exam General: Patient is laying in bed and answers questions appropriately Mentation: Patient is alert and oriented 4, Head: Normocephalic atraumatic Eyes: EOMI, pupils reactive to light Neck: Supple, nontender, midline Respiratory: Coarse to auscultation bilaterally Cardiovascular: regular rate, murmur heard Gastrointestinal: non-tender to palpation, bowel sounds heard. Neurological: Moves all extremities spontaneously Skin: No new skin lesions Assessment/Plan 1. Left sided pleural effusion s/p chest tube placement - Repeat CT scan shows minimal pleural effusion and changes consistent with carcinomatosis - Pulm on board and appreciate recommendations. Continue chest tube - MRI, CT A/P negative for any signs of metastasis - Pleural fluid cytology pending. cx negative to date - Oncology recommendations appreciated. - CEA, CA 19, and CA125 within normal limits 2. h/o lung nodule in 2011 - patient did not follow up on lung nodule findings 3. Disposition - Continue chest tube drainage. Fluid cytology pending and plan of care based on results. Specialists doubt infectious etiology at this time, patient not showing signs of active infection, no fevers will need to monitor closely. ISIDORO SHEPPARD Jun 25, 2018 10:44
--- NOTE | 2018-06-25 11:53 | CONS ---
Consult Date/Type/Reason Admit Date/Time Jun 20, 2018 at 19:35 Initial Consult Date Type of Consult Pulmonary Date/Time of Note DATE: 06/25/18 TIME: 11:52 Subjective Patient appears stable this morning. Decreased chest tube output. Preliminary cytology negative for malignant cells however special stains pending. Objective Vital Signs Date Temp Pulse Resp B/P (MAP) Pulse Ox O2 O2 Flow FiO2 Time Delivery Rate 06/25/18 2.0 08:06 06/25/18 98.2 95 20 111/79 94 08:04 (90) 06/25/18 Nasal 08:00 Cannula Intake and Output 06/24/18 06/24/18 06/25/18 1515:00 23:00 07:00 IntakeIntake Total 1080 ml 720 ml OutputOutput Total 20 ml BalanceBalance 1080 ml 700 ml Exam GENERAL: Well-nourished well-developed gentleman comfortable at rest no acute distress VITAL SIGNS: per chart NECK: Supple. No JVD or lymphadenopathy. CARDIAC EXAM: S1, S2. No added sounds or murmurs. CHEST: clear bilaterally, No added sounds, rales or wheezes ABDOMEN: Soft, nontender. No guarding or rebound. EXTREMITIES: No cyanosis, clubbing or edema. NEUROLOGIC: Generalized weakness. No focal deficits. Results/Medications Result Diagram: 06/25/18 0738 06/25/18 0738 Results 24 hrs Laboratory Tests Test 06/25/18 07:38 White Blood Count 11.5 H Red Blood Count 5.62 Hemoglobin 16.3 Hematocrit 48.2 Mean Corpuscular Volume 85.8 Mean Corpuscular Hemoglobin 29.0 Mean Corpuscular Hemoglobin Concent 33.8 Red Cell Distribution Width 12.7 Platelet Count 410 Mean Platelet Volume 9.1 Immature Granulocytes % 0.400 Neutrophils % 71.9 Lymphocytes % 16.0 Monocytes % 8.0 Eosinophils % 3.2 Basophils % 0.5 Nucleated Red Blood Cells % 0.0 Immature Granulocytes # 0.050 H Neutrophils # 8.3 H Lymphocytes # 1.9 Monocytes # 0.9 Eosinophils # 0.4 Basophils # 0.1 Nucleated Red Blood Cells # 0.0 Sodium Level 140 Potassium Level 4.3 Chloride Level 104 Carbon Dioxide Level 29 Anion Gap 7 Blood Urea Nitrogen 17 Creatinine 0.73 Est Glomerular Filtrat Rate mL/min > 60 Glucose Level 96 Calcium Level 9.2 Phosphorus Level 3.8 Magnesium Level 2.3 Medications Current Medications IV Flush (NS 3 ml) 3 ml PER PROTOCOL IV ; Start 06/20/18 at 20:30 Ondansetron HCl (Zofran Tab) 4 mg Q6H PRN PO NAUSEA/VOMITING; Start 06/20/18 at 20:30 Acetaminophen (Tylenol Tab) 650 mg Q6H PRN PO .PAIN 1-3 OR TEMP; Start 06/20/18 at 20:30 Acetaminophen/ Hydrocodone Bitart ([place] (5/325)) 1 tab Q6H PRN PO .MOD PAIN 4- 6 Last administered on 06/21/18 20:11; Admin Dose 1 TAB; Start 06/20/18 at 20:30 Docusate Sodium (Colace) 100 mg Q12H PRN PO .CONSTIPATION Last administered on 06/22/18 08:48; Admin Dose 100 MG; Start 06/20/18 at 20:30 Bisacodyl (Dulcolax) 5 mg DAILY PRN PO .CONSTIPATION Last administered on 06/24/18 08:46; Admin Dose 5 MG; Start 06/20/18 at 20:30 Enalaprilat (Vasotec Iv) 0.625 mg Q4H PRN IV ELEVATED BLOOD PRESSURE; Start 06/20/18 at 20:30 Albuterol/ Ipratropium (Duoneb) 3 ml Q4H RESP THERAPY PRN HHN SHORTNESS OF BREATH; Start 06/20/18 at 20:30 Benzonatate (Tessalon) 100 mg TID PO Last administered on 06/25/18 09:10; Admin Dose 100 MG; Start 06/20/18 at 21:00 Morphine Sulfate (morphine) 1 mg Q4H PRN IV SEVERE PAIN LEVEL 7-10 Last adminis tered on 06/21/18 21:23; Admin Dose 1 MG; Start 06/21/18 at 21:30 Polyethylene Glycol (Miralax) 17 gm DAILY PRN PO CONSTIPATION Last administered on 06/24/18 08:46; Admin Dose 17 GM; Start 06/23/18 at 09:00 Assessment/Plan Hospital Course (Demo Recall) Assessment 1. Acute hypoxemic respiratory failure secondary to large left pleural effusion. 2. Pleural effusion exudative in nature concerning for possible malignancy lymphoma versus primary lung CA. pleural carcinomatosis noted. 3. History of remote tobacco use. Plan 1. Continue chest tube drainage. Repeat chest x-ray anticipate removal of chest tube in the next 24 - 48 hrs. 2. Await pleural fluid cytology results 3. If pleural fluid cytology negative patient will need thoracic surgery evaluation for pleural biopsy. Special stains pending. Discussed with patient and family at bedside. AMIRA SAMPSON MD, [facility] Jun 25, 2018 11:53
[2018-06-25 14:16] VITALS: BP 109/69; PULSE 88; RESP 17
[2018-06-25 19:22] VITALS: BP 115/72; PULSE 90; RESP 18
[2018-06-26 01:23] VITALS: BP 106/63; PULSE 79; RESP 18
[2018-06-26 07:32] VITALS: BP 116/75; PULSE 79; RESP 18
[2018-06-26] MEDS: BENZONATATE 100 MG CAP PO SCH (08:21)
--- NOTE | 2018-06-26 10:15 | CONS ---
Assessment/Plan Assessment/Plan Assessment/Plan (Daily) 53 year old male with bloody effusion and ct scan showing possible carcinomatosis. I explained to the son and patient the risks, benefits, and alternatives of left VATs, pleural biopsy, pleurx catheter insertion and possible pleurodiesis. I explained that this may be mesothelioma. 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 CXR showed opacified left lung. A pigtail was placed and drained bloody fluid. cytology is negative as well as cultures. CT suspicious for carcinomatosis. We are asked to see for VATs pleural biopsy Constitutional: no complaints, improved Eyes: no complaints ENT: no complaints Respiratory: pleuritic pain, shortness of breath Cardiovascular: no complaints Gastrointestinal: no complaints Genitourinary: no complaints Musculoskeletal: no complaints Skin: no complaints Neurologic: no complaints Endocrine: no complaints Lymphatic: no complaints Psychological: no complaints, nl mood/affect Immunologic: no complaints Past Medical History Medical History: no pertinent history Medications Current Medications IV Flush (NS 3 ml) 3 ml PER PROTOCOL IV ; Start 06/20/18 at 20:30 Ondansetron HCl (Zofran Tab) 4 mg Q6H PRN PO NAUSEA/VOMITING; Start 06/20/18 at 20:30 Acetaminophen (Tylenol Tab) 650 mg Q6H PRN PO .PAIN 1-3 OR TEMP; Start 06/20/18 at 20:30 Acetaminophen/ Hydrocodone Bitart ([place] (5/325)) 1 tab Q6H PRN PO .MOD PAIN 4- 6 Last administered on 06/21/18at 20:11; Admin Dose 1 TAB; Start 06/20/18 at 20:30 Docusate Sodium (Colace) 100 mg Q12H PRN PO .CONSTIPATION Last administered on 06/22/18at 08:48; Admin Dose 100 MG; Start 06/20/18 at 20:30 Bisacodyl (Dulcolax) 5 mg DAILY PRN PO .CONSTIPATION Last administered on 06/24/18 08:46; Admin Dose 5 MG; Start 06/20/18 at 20:30 Enalaprilat (Vasotec Iv) 0.625 mg Q4H PRN IV ELEVATED BLOOD PRESSURE; Start 06/20/18 at 20:30 Albuterol/ Ipratropium (Duoneb) 3 ml Q4H RESP THERAPY PRN HHN SHORTNESS OF BREATH; Start 06/20/18 at 20:30 Benzonatate (Tessalon) 100 mg TID PO Last administered on 06/26/18 08:21; Admin Dose 100 MG; Start 06/20/18 at 21:00 Morphine Sulfate (morphine) 1 mg Q4H PRN IV SEVERE PAIN LEVEL 7-10 Last administered on 06/21/18 21:23; Admin Dose 1 MG; Start 06/21/18 at 21:30 Polyethylene Glycol (Miralax) 17 gm DAILY PRN PO CONSTIPATION Last administered on 06/24/18 08:46; Admin Dose 17 GM; Start 06/23/18 at 09:00 Allergies: Coded Allergies: No Known Allergy (Unverified , 06/20/18) Past Surgical History Past Surgical Hx: no surgical history Family History Significant Family History: no pertinent family hx Social History Alcohol Use: occasionally Smoking Status: Never smoker Drug Use: none 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 Exam/Review of Systems Exam Vitals Vital Signs Date Temp Pulse Resp B/P (MAP) Pulse Ox O2 O2 Flow FiO2 Time Delivery Rate 06/26/18 97.9 79 18 116/75 98 07:32 (89) 06/26/18 2.0 03:13 06/25/18 Nasal 23:16 Cannula Intake and Output 06/25/18 06/25/18 06/26/18 1515:00 23:00 07:00 IntakeIntake Total 1080 ml 600 ml BalanceBalance 1080 ml 600 ml Constitutional: alert, oriented, well developed Psych: no complaints, nl mood/affect Head: normocephalic, atraumatic Eyes: nl conjunctiva, EOMI, nl lids, nl sclera, PERRL ENMT: nl external ears & nose, nl lips & teeth, nl nasal mucosa & septum Neck: supple, non-tender Respiratory: diminished breath sounds Cardiovascular: regular rate and rhythm, nl pulses Gastrointestinal: soft, nl liver, spleen, non-tender Musculoskeletal: nl extremities to inspection, nl gait and stance Extremities: normal pulses Neurological: TROMMEL TENDER II-XII intact, nl mental status, nl speech, nl strength Lymph: nl lymph nodes Results Result Diagram: 06/26/18 0455 06/26/18 0455 Results 24hrs Laboratory Tests Test 06/26/18 04:55 06/26/18 09:05 White Blood Count 11.2 H Red Blood Count 4.96 Hemoglobin 14.4 Hematocrit 42.3 Mean Corpuscular Volume 85.3 Mean Corpuscular Hemoglobin 29.0 Mean Corpuscular Hemoglobin Concent 34.0 Red Cell Distribution Width 12.5 Platelet Count 386 Mean Platelet Volume 9.0 Immature Granulocytes % 0.400 Neutrophils % 66.3 Lymphocytes % 19.0 Monocytes % 9.6 Eosinophils % 3.9 Basophils % 0.8 Nucleated Red Blood Cells % 0.0 Immature Granulocytes # 0.040 H Neutrophils # 7.4 Lymphocytes # 2.1 Monocytes # 1.1 H Eosinophils # 0.4 Basophils # 0.1 Nucleated Red Blood Cells # 0.0 Sodium Level 138 Potassium Level 4.0 Chloride Level 104 Carbon Dioxide Level 28 Anion Gap 6 Blood Urea Nitrogen 15 Creatinine 0.63 Est Glomerular Filtrat Rate mL/min > 60 Glucose Level 101 Calcium Level 8.4 Phosphorus Level 3.7 Magnesium Level 2.2 Lab Scanned Report REFERENCE LAB Medications Medication Current Medications IV Flush (NS 3 ml) 3 ml PER PROTOCOL IV ; Start 06/20/18 at 20:30 Ondansetron HCl (Zofran Tab) 4 mg Q6H PRN PO NAUSEA/VOMITING; Start 06/20/18 at 20:30 Acetaminophen (Tylenol Tab) 650 mg Q6H PRN PO .PAIN 1-3 OR TEMP; Start 06/20/18 at 20:30 Acetaminophen/ Hydrocodone Bitart ([place] (5/325)) 1 tab Q6H PRN PO .MOD PAIN 4- 6 Last administered on 06/21/18at 20:11; Admin Dose 1 TAB; Start 06/20/18 at 20:30 Docusate Sodium (Colace) 100 mg Q12H PRN PO .CONSTIPATION Last administered on 06/22/18at 08:48; Admin Dose 100 MG; Start 06/20/18 at 20:30 Bisacodyl (Dulcolax) 5 mg DAILY PRN PO .CONSTIPATION Last administered on 06/24/18 08:46; Admin Dose 5 MG; Start 06/20/18 at 20:30 Enalaprilat (Vasotec Iv) 0.625 mg Q4H PRN IV ELEVATED BLOOD PRESSURE; Start 06/20/18 at 20:30 Albuterol/ Ipratropium (Duoneb) 3 ml Q4H RESP THERAPY PRN HHN SHORTNESS OF BREATH; Start 06/20/18 at 20:30 Benzonatate (Tessalon) 100 mg TID PO Last administered on 06/26/18 08:21; Admin Dose 100 MG; Start 06/20/18 at 21:00 Morphine Sulfate (morphine) 1 mg Q4H PRN IV SEVERE PAIN LEVEL 7-10 Last administered on 06/21/18 21:23; Admin Dose 1 MG; Start 06/21/18 at 21:30 Polyethylene Glycol (Miralax) 17 gm DAILY PRN PO CONSTIPATION Last administered on 06/24/18 08:46; Admin Dose 17 GM; Start 06/23/18 at 09:00 KASI PETERSON MD Jun 26, 2018 10:15
--- NOTE | 2018-06-26 10:50 | CONS ---
Consult Date/Type/Reason Admit Date/Time Jun 20, 2018 at 19:35 Initial Consult Date Type of Consult Pulmonary Requesting Provider: AMIRA SAMPSON MD, [facility] Date/Time of Note DATE: 06/26/18 TIME: 10:22 Subjective Pleural fluid negative for cytology. Patient appears comfortable this morning no respiratory distress Objective Vital Signs Date Temp Pulse Resp B/P (MAP) Pulse Ox O2 O2 Flow FiO2 Time Delivery Rate 06/26/18 97.9 79 18 116/75 98 07:32 (89) 06/26/18 2.0 03:13 06/25/18 Nasal 23:16 Cannula Intake and Output 06/25/18 06/25/18 06/26/18 1515:00 23:00 07:00 IntakeIntake Total 1080 ml 600 ml BalanceBalance 1080 ml 600 ml Exam GENERAL: Well-nourished well-developed gentleman comfortable at rest no acute distress VITAL SIGNS: per chart NECK: Supple. No JVD or lymphadenopathy. CARDIAC EXAM: S1, S2. No added sounds or murmurs. CHEST: clear bilaterally, No added sounds, rales or wheezes ABDOMEN: Soft, nontender. No guarding or rebound. EXTREMITIES: No cyanosis, clubbing or edema. NEUROLOGIC: Generalized weakness. No focal deficits. Results/Medications Result Diagram: 06/26/18 0455 06/26/18454 Results 24 hrs Laboratory Tests Test 06/26/18 04:55 06/26/18 09:05 White Blood Count 11.2 H Red Blood Count 4.96 Hemoglobin 14.4 Hematocrit 42.3 Mean Corpuscular Volume 85.3 Mean Corpuscular Hemoglobin 29.0 Mean Corpuscular Hemoglobin Concent 34.0 Red Cell Distribution Width 12.5 Platelet Count 386 Mean Platelet Volume 9.0 Immature Granulocytes % 0.400 Neutrophils % 66.3 Lymphocytes % 19.0 Monocytes % 9.6 Eosinophils % 3.9 Basophils % 0.8 Nucleated Red Blood Cells % 0.0 Immature Granulocytes # 0.040 H Neutrophils # 7.4 Lymphocytes # 2.1 Monocytes # 1.1 H Eosinophils # 0.4 Basophils # 0.1 Nucleated Red Blood Cells # 0.0 Sodium Level 138 Potassium Level 4.0 Chloride Level 104 Carbon Dioxide Level 28 Anion Gap 6 Blood Urea Nitrogen 15 Creatinine 0.63 Est Glomerular Filtrat Rate mL/min > 60 Glucose Level 101 Calcium Level 8.4 Phosphorus Level 3.7 Magnesium Level 2.2 Lab Scanned Report REFERENCE LAB Medications Current Medications IV Flush (NS 3 ml) 3 ml PER PROTOCOL IV ; Start 06/20/18 at 20:30 Ondansetron HCl (Zofran Tab) 4 mg Q6H PRN PO NAUSEA/VOMITING; Start 06/20/18 at 20:30 Acetaminophen (Tylenol Tab) 650 mg Q6H PRN PO .PAIN 1-3 OR TEMP; Start 06/20/18 at 20:30 Acetaminophen/ Hydrocodone Bitart ([place] (5/325)) 1 tab Q6H PRN PO .MOD PAIN 4- 6 Last administered on 06/21/18 20:11; Admin Dose 1 TAB; Start 06/20/18 at 20:30 Docusate Sodium (Colace) 100 mg Q12H PRN PO .CONSTIPATION Last administered on 06/22/18 08:48; Admin Dose 100 MG; Start 06/20/18 at 20:30 Bisacodyl (Dulcolax) 5 mg DAILY PRN PO .CONSTIPATION Last administered on 06/24/18 08:46; Admin Dose 5 MG; Start 06/20/18 at 20:30 Enalaprilat (Vasotec Iv) 0.625 mg Q4H PRN IV ELEVATED BLOOD PRESSURE; Start 06/20/18 at 20:30 Albuterol/ Ipratropium (Duoneb) 3 ml Q4H RESP THERAPY PRN HHN SHORTNESS OF BREATH; Start 06/20/18 at 20:30 Benzonatate (Tessalon) 100 mg TID PO Last administered on 06/26/18 08:21; Admin Dose 100 MG; Start 06/20/18 at 21:00 Morphine Sulfate (morphine) 1 mg Q4H PRN IV SEVERE PAIN LEVEL 7-10 Last administered on 06/21/18 21:23; Admin Dose 1 MG; Start 06/21/18 at 21:30 Polyethylene Glycol (Miralax) 17 gm DAILY PRN PO CONSTIPATION Last administered on 06/24/18 08:46; Admin Dose 17 GM; Start 06/23/18 at 09:00 Assessment/Plan Hospital Course (Demo Recall) Assessment 1. Acute hypoxemic respiratory failure secondary to large left pleural effusion. 2. Pleural effusion exudative in nature concerning for possible malignancy lymphoma versus primary lung CA. pleural carcinomatosis noted. 3. History of remote tobacco use. Plan 1. Appreciate thoracic surgery evaluation regarding possible diagnosis of mesothelioma. Will likely require biopsy. 2. Pleural fluid cytology negative AM[facility]PSON MD, [facility] Jun 26, 2018 10:32
--- NOTE | 2018-06-26 11:10 | PN ---
Date/Time of Note Date/Time of Note DATE: 06/26/18 TIME: 11:09 Objective Vitals Vital Signs Date Temp Pulse Resp B/P (MAP) Pulse Ox O2 O2 Flow FiO2 Time Delivery Rate 06/26/18 97.9 79 18 116/75 98 07:32 (89) 06/26/18 2.0 03:13 06/25/18 Nasal 23:16 Cannula Intake and Output 06/25/18 06/25/18 06/26/18 1515:00 23:00 07:00 IntakeIntake Total 1080 ml 600 ml BalanceBalance 1080 ml 600 ml Results Result Diagram: 06/26/18 0455 06/26/18 0455 Medications Medications Current Medications IV Flush (NS 3 ml) 3 ml PER PROTOCOL IV ; Start 06/20/18 at 20:30 Ondansetron HCl (Zofran Tab) 4 mg Q6H PRN PO NAUSEA/VOMITING; Start 06/20/18 at 20:30 Acetaminophen (Tylenol Tab) 650 mg Q6H PRN PO .PAIN 1-3 OR TEMP; Start 06/20/18 at 20:30 Acetaminophen/ Hydrocodone Bitart ([place] (5/325)) 1 tab Q6H PRN PO .MOD PAIN 4- 6 Last administered on 06/21/18at 20:11; Admin Dose 1 TAB; Start 06/20/18 at 20:30 Docusate Sodium (Colace) 100 mg Q12H PRN PO .CONSTIPATION Last administered on 06/22/18 08:48; Admin Dose 100 MG; Start 06/20/18 at 20:30 Bisacodyl (Dulcolax) 5 mg DAILY PRN PO .CONSTIPATION Last administered on 06/24/18at 08:46; Admin Dose 5 MG; Start 06/20/18 at 20:30 Enalaprilat (Vasotec Iv) 0.625 mg Q4H PRN IV ELEVATED BLOOD PRESSURE; Start 06/20/18 at 20:30 Albuterol/ Ipratropium (Duoneb) 3 ml Q4H RESP THERAPY PRN HHN SHORTNESS OF BREATH; Start 06/20/18 at 20:30 Benzonatate (Tessalon) 100 mg TID PO Last administered on 06/26/18at 08:21; Admin Dose 100 MG; Start 06/20/18 at 21:00 Morphine Sulfate (morphine) 1 mg Q4H PRN IV SEVERE PAIN LEVEL 7-10 Last administered on 06/21/18at 21:23; Admin Dose 1 MG; Start 06/21/18 at 21:30 Polyethylene Glycol (Miralax) 17 gm DAILY PRN PO CONSTIPATION Last administered on 06/24/18at 08:46; Admin Dose 17 GM; Start 06/23/18 at 09:00 VTE Pro[place] [facility] [place]: 2 [place]CD [place] [facility] [place] No SCD contraindication: other Lines/Catheters IV Catheter Type: Talavera in Place: No Assessment/Plan Hospital Course Subjective Patient doing well, breathing continues to improve, Objective Physical exam General: Patient is laying in bed and answers questions appropriately Mentation: Patient is alert and oriented 4, Head: Normocephalic atraumatic Eyes: EOMI, pupils reactive to light Neck: Supple, nontender, midline Respiratory: Coarse to auscultation bilaterally Cardiovascular: regular rate, murmur heard Gastrointestinal: non-tender to palpation, bowel sounds heard. Neurological: Moves all extremities spontaneously Skin: No new skin lesions Assessment/Plan 1. Left sided pleural effusion s/p chest tube placement - Repeat CT scan shows minimal pleural effusion and changes consistent with carcinomatosis - Pulm on board and appreciate recommendations. Continue chest tube - MRI, CT A/P negative for any signs of metastasis - Pleural fluid cytology negative, cx negative to date - Oncology recommendations appreciated. - CEA, CA 19, and CA125 within normal limits -CT surgery consulted for VATS, stated he believes more mesothelioma versus carcinomatosis, surgery scheduled for June 29, sunday. 2. h/o lung nodule in 2011 - patient did not follow up on lung nodule findings 3. Disposition -VATS for possible biopsy vs pleurodesis vs pleurectomy or other on Sunday ISIDORO SHEPPARD Jun 26, 2018 11:10
[2018-06-26] MEDS ORDERED: BENZONATATE 100 MG CAP PO PRN (11:30)
--- NOTE | 2018-06-26 13:17 | CONS ---
Assessment/Plan Assessment/Plan Hospital Course (Demo Recall) pleasant 53 yo with large pleural effusion and nodularity concerning for malignancy -no liver mets -s/p thoracentesis, cytology negative for malignancy. needs pleural biopsy. CT surgery consulted, ?mesotheloma -s/p pleurex - MRI brain done to rule out brain mets--NEGATIVE discussed with daughter at bedside Consultation Date/Type/Reason Admit Date/Time Jun 20, 2018 at 19:35 Initial Consult Date Requesting Provider: AMIRA SAMPSON MD, [facility] Date/Time of Note DATE: 06/26/18 TIME: 13:16 Exam/Review of Systems Exam Vitals Vital Signs Date Temp Pulse Resp B/P (MAP) Pulse Ox O2 O2 Flow FiO2 Time Delivery Rate 06/26/18 2.0 08:00 06/26/18 97.9 79 18 116/75 98 07:32 (89) 06/25/18 Nasal 23:16 Cannula Intake and Output 06/25/18 06/25/18 06/26/18 1515:00 23:00 07:00 IntakeIntake Total 1080 ml 600 ml BalanceBalance 1080 ml 600 ml Results Result Diagram: 06/26/18 0455 06/26/18 0455 Results 24hrs Laboratory Tests Test 06/26/18 04:55 06/26/18 09:05 White Blood Count 11.2 H Red Blood Count 4.96 Hemoglobin 14.4 Hematocrit 42.3 Mean Corpuscular Volume 85.3 Mean Corpuscular Hemoglobin 29.0 Mean Corpuscular Hemoglobin Concent 34.0 Red Cell Distribution Width 12.5 Platelet Count 386 Mean Platelet Volume 9.0 Immature Granulocytes % 0.400 Neutrophils % 66.3 Lymphocytes % 19.0 Monocytes % 9.6 Eosinophils % 3.9 Basophils % 0.8 Nucleated Red Blood Cells % 0.0 Immature Granulocytes # 0.040 H Neutrophils # 7.4 Lymphocytes # 2.1 Monocytes # 1.1 H Eosinophils # 0.4 Basophils # 0.1 Nucleated Red Blood Cells # 0.0 Sodium Level 138 Potassium Level 4.0 Chloride Level 104 Carbon Dioxide Level 28 Anion Gap 6 Blood Urea Nitrogen 15 Creatinine 0.63 Est Glomerular Filtrat Rate mL/min > 60 Glucose Level 101 Calcium Level 8.4 Phosphorus Level 3.7 Magnesium Level 2.2 Lab Scanned Report REFERENCE LAB Medications Medication Current Medications IV Flush (NS 3 ml) 3 ml PER PROTOCOL IV ; Start 06/20/18 at 20:30 Ondansetron HCl (Zofran Tab) 4 mg Q6H PRN PO NAUSEA/VOMITING; Start 06/20/18 at 20:30 Acetaminophen (Tylenol Tab) 650 mg Q6H PRN PO .PAIN 1-3 OR TEMP; Start 06/20/18 at 20:30 Acetaminophen/ Hydrocodone Bitart ([place] (5/325)) 1 tab Q6H PRN PO .MOD PAIN 4- 6 Last administered on 06/21/18 20:11; Admin Dose 1 TAB; Start 06/20/18 at 20:30 Docusate Sodium (Colace) 100 mg Q12H PRN PO .CONSTIPATION Last administered on 06/22/18 08:48; Admin Dose 100 MG; Start 06/20/18 at 20:30 Bisacodyl (Dulcolax) 5 mg DAILY PRN PO .CONSTIPATION Last administered on 06/24/18 08:46; Admin Dose 5 MG; Start 06/20/18 at 20:30 Enalaprilat (Vasotec Iv) 0.625 mg Q4H PRN IV ELEVATED BLOOD PRESSURE; Start 06/20/18 at 20:30 Albuterol/ Ipratropium (Duoneb) 3 ml Q4H RESP THERAPY PRN HHN SHORTNESS OF BREATH; Start 06/20/18 at 20:30 Morphine Sulfate (morphine) 1 mg Q4H PRN IV SEVERE PAIN LEVEL 7-10 Last administered on 06/21/18 21:23; Admin Dose 1 MG; Start 06/21/18 at 21:30 Polyethylene Glycol (Miralax) 17 gm DAILY PRN PO CONSTIPATION Last administered on 06/24/18 08:46; Admin Dose 17 GM; Start 06/23/18 at 09:00 Benzonatate (Tessalon) 100 mg TID PRN PO cough; Start 06/26/18 at 11:30 JERRICA LUNDBERG Jun 26, 2018 13:17
[2018-06-26 14:16] VITALS: BP 115/69; PULSE 84; RESP 18
[2018-06-26 20:00] VITALS: BP 115/74; PULSE 88; RESP 18
[2018-06-27 01:28] VITALS: BP 101/66; PULSE 83; RESP 18
--- NOTE | 2018-06-27 06:37 | PN ---
Date/Time of Note Date/Time of Note DATE: 06/27/18 TIME: 06:36 Assessment/Plan Lines/Catheters IV Catheter Type (from Nrs): Saline Lock Talavera in Place (from Nrs): No Assessment/Plan Assessment/Plan plan for VATs Sunday Exam/Review of Systems Vital Signs Vitals Vital Signs Date Temp Pulse Resp B/P (MAP) Pulse Ox O2 O2 Flow FiO2 Time Delivery Rate 06/27/18 2.0 05:34 06/27/18 99.0 83 18 101/66 96 01:28 (78) 06/26/18 Nasal 20:00 Cannula Intake and Output 06/26/18 06/26/18 06/27/18 1515:00 23:00 07:00 IntakeIntake Total 720 ml 360 ml BalanceBalance 720 ml 360 ml Results Result Diagram: 06/27/18 0512 06/27/18 0512 KASI PETERSON MD Jun 27, 2018 06:36
[2018-06-27] MEDS ORDERED: CEFAZOLIN 2 GM/50 ML (PMX) 50 ML IVPB ONE (07:00)
[2018-06-27 07:23] VITALS: BP 105/73; PULSE 82; RESP 16
--- NOTE | 2018-06-27 11:11 | CONS ---
Consult Date/Type/Reason Admit Date/Time Jun 20, 2018 at 19:35 Initial Consult Date Type of Consult Pulmonary Requesting Provider: AMIRA SAMPSON MD, [facility] Date/Time of Note DATE: 06/27/18 TIME: 11:10 Subjective Patient is on respiratory distress. Objective Vital Signs Date Temp Pulse Resp B/P (MAP) Pulse Ox O2 O2 Flow FiO2 Time Delivery Rate 06/27/18 97.4 82 16 105/73 95 07:23 (84) 06/27/18 2.0 05:34 06/26/18 Nasal 20:00 Cannula Intake and Output 06/26/18 06/26/18 06/27/18 1515:00 23:00 07:00 IntakeIntake Total 720 ml 360 ml OutputOutput Total 30 ml BalanceBalance 720 ml 360 ml -30 ml Exam GENERAL: Well-nourished well-developed gentleman comfortable at rest no acute distress VITAL SIGNS: per chart NECK: Supple. No JVD or lymphadenopathy. CARDIAC EXAM: S1, S2. No added sounds or murmurs. CHEST: clear bilaterally, No added sounds, rales or wheezes ABDOMEN: Soft, nontender. No guarding or rebound. EXTREMITIES: No cyanosis, clubbing or edema. NEUROLOGIC: Generalized weakness. No focal deficits. Results/Medications Result Diagram: 06/27/18 0512 06/27/18 0512 Results 24 hrs Laboratory Tests Test 06/27/18 05:12 White Blood Count 11.1 H Red Blood Count 4.87 Hemoglobin 14.1 Hematocrit 41.7 L Mean Corpuscular Volume 85.6 Mean Corpuscular Hemoglobin 29.0 Mean Corpuscular Hemoglobin Concent 33.8 Red Cell Distribution Width 12.4 Platelet Count 372 Mean Platelet Volume 9.1 Immature Granulocytes % 0.400 Neutrophils % 66.9 Lymphocytes % 18.5 Monocytes % 10.0 Eosinophils % 3.7 Basophils % 0.5 Nucleated Red Blood Cells % 0.0 Immature Granulocytes # 0.040 H Neutrophils # 7.5 Lymphocytes # 2.1 Monocytes # 1.1 H Eosinophils # 0.4 Basophils # 0.1 Nucleated Red Blood Cells # 0.0 Sodium Level 138 Potassium Level 4.1 Chloride Level 104 Carbon Dioxide Level 30 Anion Gap 4 L Blood Urea Nitrogen 14 Creatinine 0.73 Est Glomerular Filtrat Rate mL/min > 60 Glucose Level 100 Calcium Level 8.5 Phosphorus Level 3.5 Magnesium Level 2.3 Medications Current Medications IV Flush (NS 3 ml) 3 ml PER PROTOCOL IV ; Start 06/20/18 at 20:30 Ondansetron HCl (Zofran Tab) 4 mg Q6H PRN PO NAUSEA/VOMITING; Start 06/20/18 at 20:30 Acetaminophen (Tylenol Tab) 650 mg Q6H PRN PO .PAIN 1-3 OR TEMP; Start 06/20/18 at 20:30 Acetaminophen/ Hydrocodone Bitart ([place] (5/325)) 1 tab Q6H PRN PO .MOD PAIN 4- 6 Last administered on 06/21/18 20:11; Admin Dose 1 TAB; Start 06/20/18 at 20:30 Docusate Sodium (Colace) 100 mg Q12H PRN PO .CONSTIPATION Last administered on 06/22/18 08:48; Admin Dose 100 MG; Start 06/20/18 at 20:30 Bisacodyl (Dulcolax) 5 mg DAILY PRN PO .CONSTIPATION Last administered on 06/24/18at 08:46; Admin Dose 5 MG; Start 06/20/18 at 20:30 Enalaprilat (Vasotec Iv) 0.625 mg Q4H PRN IV ELEVATED BLOOD PRESSURE; Start 06/20/18 at 20:30 Albuterol/ Ipratropium (Duoneb) 3 ml Q4H RESP THERAPY PRN HHN SHORTNESS OF BREATH; Start 06/20/18 at 20:30 Morphine Sulfate (morphine) 1 mg Q4H PRN IV SEVERE PAIN LEVEL 7-10 Last administered on 06/21/18at 21:23; Admin Dose 1 MG; Start 06/21/18 at 21:30 Polyethylene Glycol (Miralax) 17 gm DAILY PRN PO CONSTIPATION Last administered on 06/24/18 08:46; Admin Dose 17 GM; Start 06/23/18 at 09:00 Benzonatate (Tessalon) 100 mg TID PRN PO cough; Start 06/26/18 at 11:30 Assessment/Plan Hospital Course (Demo Recall) Assessment 1. Acute hypoxemic respiratory failure secondary to large left pleural effusion. 2. Pleural effusion exudative in nature concerning for possible malignancy lymphoma versus primary lung CA. pleural carcinomatosis noted. Prior history of possible asbestos exposure. CT findings concerning for mesothelioma. 3. History of remote tobacco use. Plan 1. Thoracic surgery recommendations surgery scheduled for this weekend. 2. Pleural fluid cytology negative 3. Encourage out of bed AMIRA SAMPSON MD, [facility] Jun 27, 2018 11:11
--- NOTE | 2018-06-27 14:29 | PN ---
Date/Time of Note Date/Time of Note DATE: 06/27/18 TIME: 14:29 Objective Vitals Vital Signs Date Temp Pulse Resp B/P (MAP) Pulse Ox O2 O2 Flow FiO2 Time Delivery Rate 06/27/18 97.4 82 16 105/73 95 07:23 (84) 06/27/18 2.0 05:34 06/26/18 Nasal 20:00 Cannula Intake and Output 06/26/18 06/26/18 06/27/18 1414:59 22:59 06:59 IntakeIntake Total 720 ml 360 ml OutputOutput Total 30 ml BalanceBalance 720 ml 360 ml -30 ml Results Result Diagram: 06/27/1851106/27/18511 Medications Medications Current Medications IV Flush (NS 3 ml) 3 ml PER PROTOCOL IV ; Start 06/20/18 at 20:30 Ondansetron HCl (Zofran Tab) 4 mg Q6H PRN PO NAUSEA/VOMITING; Start 06/20/18 at 20:30 Acetaminophen (Tylenol Tab) 650 mg Q6H PRN PO .PAIN 1-3 OR TEMP; Start 06/20/18 at 20:30 Acetaminophen/ Hydrocodone Bitart ([place] (5/325)) 1 tab Q6H PRN PO .MOD PAIN 4- 6 Last administered on 06/21/18at 20:11; Admin Dose 1 TAB; Start 06/20/18 at 20:30 Docusate Sodium (Colace) 100 mg Q12H PRN PO .CONSTIPATION Last administered on 06/22/18 08:48; Admin Dose 100 MG; Start 06/20/18 at 20:30 Bisacodyl (Dulcolax) 5 mg DAILY PRN PO .CONSTIPATION Last administered on 06/24/18 08:46; Admin Dose 5 MG; Start 06/20/18 at 20:30 Enalaprilat (Vasotec Iv) 0.625 mg Q4H PRN IV ELEVATED BLOOD PRESSURE; Start 06/20/18 at 20:30 Albuterol/ Ipratropium (Duoneb) 3 ml Q4H RESP THERAPY PRN HHN SHORTNESS OF BREATH; Start 06/20/18 at 20:30 Morphine Sulfate (morphine) 1 mg Q4H PRN IV SEVERE PAIN LEVEL 7-10 Last administered on 06/21/18at 21:23; Admin Dose 1 MG; Start 06/21/18 at 21:30 Polyethylene Glycol (Miralax) 17 gm DAILY PRN PO CONSTIPATION Last administered on 06/24/18at 08:46; Admin Dose 17 GM; Start 06/23/18 at 09:00 Benzonatate (Tessalon) 100 mg TID PRN PO cough; Start 06/26/18 at 11:30 VTE Prophylaxis [place] [facility] [place]: 2 [place]CD [place] [facility] [place] No SCD contraindication: other Lines/Catheters IV Catheter Type: Talavera in Place: No Assessment/Plan Hospital Course Subjective Patient doing well, no acute complaints Objective Physical exam General: Patient is laying in bed and answers questions appropriately Mentation: Patient is alert and oriented 4, Head: Normocephalic atraumatic Eyes: EOMI, pupils reactive to light Neck: Supple, nontender, midline Respiratory: Coarse to auscultation bilaterally Cardiovascular: regular rate, murmur heard Gastrointestinal: non-tender to palpation, bowel sounds heard. Neurological: Moves all extremities spontaneously Skin: No new skin lesions Assessment/Plan 1. Left sided pleural effusion s/p chest tube placement - Repeat CT scan shows minimal pleural effusion and changes consistent with carcinomatosis - Pulm on board and appreciate recommendations. Continue chest tube - MRI, CT A/P negative for any signs of metastasis - Pleural fluid cytology negative, cx negative to date - Oncology recommendations appreciated. - CEA, CA 19, and CA125 within normal limits -CT surgery consulted for VATS, stated he believes more mesothelioma versus carcinomatosis, surgery scheduled for June 29, this Sunday. 2. h/o lung nodule in 2011 - patient did not follow up on lung nodule findings 3. Disposition -VATS for possible biopsy vs pleurodesis vs pleurectomy or other on Sunday ISIDORO SHEPPARD Jun 27, 2018 14:29
[2018-06-27 15:20] VITALS: BP 106/73; PULSE 82; RESP 18
[2018-06-27 20:00] VITALS: BP 114/72; PULSE 83; RESP 18
[2018-06-28 01:28] VITALS: BP 114/73; PULSE 79; RESP 18
[2018-06-28 07:34] VITALS: BP 115/72; PULSE 79; RESP 18
--- NOTE | 2018-06-28 11:22 | CONS ---
Consult Date/Type/Reason Admit Date/Time Jun 20, 2018 at 19:35 Initial Consult Date Type of Consult Pulmonary Requesting Provider: AMIRA SAMPSON MD, [facility] Date/Time of Note DATE: 06/28/18 TIME: 11:21 Subjective No new events. Remans stable. Surgery scheduled for tomorrow. Objective Vital Signs Date Temp Pulse Resp B/P (MAP) Pulse Ox O2 O2 Flow FiO2 Time Delivery Rate 06/28/18 Nasal 2.0 07:47 Cannula 06/28/18 98.5 79 18 115/72 95 07:34 (86) Intake and Output 06/27/18 06/27/18 06/28/18 1515:00 23:00 07:00 IntakeIntake Total 480 ml 900 ml OutputOutput Total 0 ml BalanceBalance 480 ml 900 ml Exam GENERAL: Well-nourished well-developed gentleman comfortable at rest no acute distress VITAL SIGNS: per chart NECK: Supple. No JVD or lymphadenopathy. CARDIAC EXAM: S1, S2. No added sounds or murmurs. CHEST: clear bilaterally, No added sounds, rales or wheezes ABDOMEN: Soft, nontender. No guarding or rebound. EXTREMITIES: No cyanosis, clubbing or edema. NEUROLOGIC: Generalized weakness. No focal deficits. Results/Medications Result Diagram: 06/28/1852106/28/18 05 Results 24 hrs Laboratory Tests Test 06/28/18 05:22 06/28/18 09:02 White Blood Count 10.7 Red Blood Count 4.97 Hemoglobin 14.2 Hematocrit 42.2 Mean Corpuscular Volume 84.9 Mean Corpuscular Hemoglobin 28.6 L Mean Corpuscular Hemoglobin Concent 33.6 Red Cell Distribution Width 12.6 Platelet Count 376 Mean Platelet Volume 8.8 Immature Granulocytes % 0.600 H Neutrophils % 66.5 Lymphocytes % 18.3 Monocytes % 10.0 Eosinophils % 3.9 Basophils % 0.7 Nucleated Red Blood Cells % 0.0 Immature Granulocytes # 0.060 H Neutrophils # 7.1 Lymphocytes # 2.0 Monocytes # 1.1 H Eosinophils # 0.4 Basophils # 0.1 Nucleated Red Blood Cells # 0.0 Sodium Level 139 Potassium Level 4.1 Chloride Level 104 Carbon Dioxide Level 29 Anion Gap 6 Blood Urea Nitrogen 13 Creatinine 0.68 Est Glomerular Filtrat Rate mL/min > 60 Glucose Level 102 Calcium Level 8.6 Phosphorus Level 3.8 Magnesium Level 2.2 Lab Scanned Report REFERENCE LAB Medications Current Medications IV Flush (NS 3 ml) 3 ml PER PROTOCOL IV ; Start 06/20/18 at 20:30 Ondansetron HCl (Zofran Tab) 4 mg Q6H PRN PO NAUSEA/VOMITING; Start 06/20/18 at 20:30 Acetaminophen (Tylenol Tab) 650 mg Q6H PRN PO .PAIN 1-3 OR TEMP; Start 06/20/18 at 20:30 Acetaminophen/ Hydrocodone Bitart ([place] (5/325)) 1 tab Q6H PRN PO .MOD PAIN 4- 6 Last administered on 06/21/18 20:11; Admin Dose 1 TAB; Start 06/20/18 at 20:30 Docusate Sodium (Colace) 100 mg Q12H PRN PO .CONSTIPATION Last administered on 06/22/18 08:48; Admin Dose 100 MG; Start 06/20/18 at 20:30 Bisacodyl (Dulcolax) 5 mg DAILY PRN PO .CONSTIPATION Last administered on 06/24/18 08:46; Admin Dose 5 MG; Start 06/20/18 at 20:30 Enalaprilat (Vasotec Iv) 0.625 mg Q4H PRN IV ELEVATED BLOOD PRESSURE; Start 06/20/18 at 20:30 Albuterol/ Ipratropium (Duoneb) 3 ml Q4H RESP THERAPY PRN HHN SHORTNESS OF BREATH; Start 06/20/18 at 20:30 Morphine Sulfate (morphine) 1 mg Q4H PRN IV SEVERE PAIN LEVEL 7-10 Last administered on 06/21/18 21:23; Admin Dose 1 MG; Start 06/21/18 at 21:30 Polyethylene Glycol (Miralax) 17 gm DAILY PRN PO CONSTIPATION Last administered on 06/24/18 08:46; Admin Dose 17 GM; Start 06/23/18 at 09:00 Benzonatate (Tessalon) 100 mg TID PRN PO cough Last administered on 06/27/18 22:16; Admin Dose 100 MG; Start 06/26/18 at 11:30 Assessment/Plan Hospital Course (Demo Recall) Assessment 1. Acute hypoxemic respiratory failure secondary to large left pleural effusion.s/p thoracentesis. 2. Pleural effusion exudative in nature concerning for possible malignancy lymphoma versus primary lung CA. pleural carcinomatosis noted. Prior history of possible asbestos exposure. CT findings concerning for mesothelioma. 3. History of remote tobacco use. Plan 1. Thoracic surgery recommendations VATs surgery scheduled for this weekend. 2. Pleural fluid cytology negative 3. Encourage out of bed discussed with family at bedside. AM[facility] SAMPSON MD, [facility] Jun 28, 2018 11:22
--- NOTE | 2018-06-28 11:30 | PN ---
Date/Time of Note Date/Time of Note DATE: 06/28/18 TIME: 11:29 Assessment/Plan VTE Prophylaxis Risk score (from Ns)>0 risk: 2 SCD applied (from Ns): Yes Pharmacological prophylaxis: LMWH Lines/Catheters IV Catheter Type (from Nrs): Saline Lock Urinary Cath still in place: No Assessment/Plan Assessment/Plan Breathing comfortabley. Scheduled for decort tomorrow Result Diagram: 06/28/1852106/28/18521 Results 24hrs Laboratory Tests Test 06/28/18 05:22 06/28/18 09:02 White Blood Count 10.7 Red Blood Count 4.97 Hemoglobin 14.2 Hematocrit 42.2 Mean Corpuscular Volume 84.9 Mean Corpuscular Hemoglobin 28.6 L Mean Corpuscular Hemoglobin Concent 33.6 Red Cell Distribution Width 12.6 Platelet Count 376 Mean Platelet Volume 8.8 Immature Granulocytes % 0.600 H Neutrophils % 66.5 Lymphocytes % 18.3 Monocytes % 10.0 Eosinophils % 3.9 Basophils % 0.7 Nucleated Red Blood Cells % 0.0 Immature Granulocytes # 0.060 H Neutrophils # 7.1 Lymphocytes # 2.0 Monocytes # 1.1 H Eosinophils # 0.4 Basophils # 0.1 Nucleated Red Blood Cells # 0.0 Sodium Level 139 Potassium Level 4.1 Chloride Level 104 Carbon Dioxide Level 29 Anion Gap 6 Blood Urea Nitrogen 13 Creatinine 0.68 Est Glomerular Filtrat Rate mL/min > 60 Glucose Level 102 Calcium Level 8.6 Phosphorus Level 3.8 Magnesium Level 2.2 Lab Scanned Report REFERENCE LAB Exam/Review of Systems Exam Vitals Vital Signs Date Temp Pulse Resp B/P (MAP) Pulse Ox O2 O2 Flow FiO2 Time Delivery Rate 06/28/18 Nasal 2.0 07:47 Cannula 06/28/18 98.5 79 18 115/72 95 07:34 (86) Intake and Output 06/27/18 06/27/18 06/28/18 1515:00 23:00 07:00 IntakeIntake Total 480 ml 900 ml OutputOutput Total 0 ml BalanceBalance 480 ml 900 ml Results Results 24hrs Laboratory Tests Test 06/28/18 05:22 06/28/18 09:02 White Blood Count 10.7 Red Blood Count 4.97 Hemoglobin 14.2 Hematocrit 42.2 Mean Corpuscular Volume 84.9 Mean Corpuscular Hemoglobin 28.6 L Mean Corpuscular Hemoglobin Concent 33.6 Red Cell Distribution Width 12.6 Platelet Count 376 Mean Platelet Volume 8.8 Immature Granulocytes % 0.600 H Neutrophils % 66.5 Lymphocytes % 18.3 Monocytes % 10.0 Eosinophils % 3.9 Basophils % 0.7 Nucleated Red Blood Cells % 0.0 Immature Granulocytes # 0.060 H Neutrophils # 7.1 Lymphocytes # 2.0 Monocytes # 1.1 H Eosinophils # 0.4 Basophils # 0.1 Nucleated Red Blood Cells # 0.0 Sodium Level 139 Potassium Level 4.1 Chloride Level 104 Carbon Dioxide Level 29 Anion Gap 6 Blood Urea Nitrogen 13 Creatinine 0.68 Est Glomerular Filtrat Rate mL/min > 60 Glucose Level 102 Calcium Level 8.6 Phosphorus Level 3.8 Magnesium Level 2.2 Lab Scanned Report REFERENCE LAB Medications Medication Current Medications IV Flush (NS 3 ml) 3 ml PER PROTOCOL IV ; Start 06/20/18 at 20:30 Ondansetron HCl (Zofran Tab) 4 mg Q6H PRN PO NAUSEA/VOMITING; Start 06/20/18 at 20:30 Acetaminophen (Tylenol Tab) 650 mg Q6H PRN PO .PAIN 1-3 OR TEMP; Start 06/20/18 at 20:30 Acetaminophen/ Hydrocodone Bitart ([place] (5/325)) 1 tab Q6H PRN PO .MOD PAIN 4- 6 Last administered on 06/21/18at 20:11; Admin Dose 1 TAB; Start 06/20/18 at 20:30 Docusate Sodium (Colace) 100 mg Q12H PRN PO .CONSTIPATION Last administered on 06/22/18at 08:48; Admin Dose 100 MG; Start 06/20/18 at 20:30 Bisacodyl (Dulcolax) 5 mg DAILY PRN PO .CONSTIPATION Last administered on 06/24/18at 08:46; Admin Dose 5 MG; Start 06/20/18 at 20:30 Enalaprilat (Vasotec Iv) 0.625 mg Q4H PRN IV ELEVATED BLOOD PRESSURE; Start 06/20/18 at 20:30 Albuterol/ Ipratropium (Duoneb) 3 ml Q4H RESP THERAPY PRN HHN SHORTNESS OF BREATH; Start 06/20/18 at 20:30 Morphine Sulfate (morphine) 1 mg Q4H PRN IV SEVERE PAIN LEVEL 7-10 Last administered on 06/21/18 21:23; Admin Dose 1 MG; Start 06/21/18 at 21:30 Polyethylene Glycol (Miralax) 17 gm DAILY PRN PO CONSTIPATION Last administered on 06/24/18at 08:46; Admin Dose 17 GM; Start 06/23/18 at 09:00 Benzonatate (Tessalon) 100 mg TID PRN PO cough Last administered on 06/27/18at 22:16; Admin Dose 100 MG; Start 06/26/18 at 11:30 RIYA JAMISON MD Jun 28, 2018 11:30
--- NOTE | 2018-06-28 13:26 | PN ---
Date/Time of Note Date/Time of Note DATE: 06/28/18 TIME: 13:25 Objective Vitals Vital Signs Date Temp Pulse Resp B/P (MAP) Pulse Ox O2 O2 Flow FiO2 Time Delivery Rate 06/28/18 Nasal 2.0 07:47 Cannula 06/28/18 98.5 79 18 115/72 95 07:34 (86) Intake and Output 06/27/18 06/27/18 06/28/18 1515:00 23:00 07:00 IntakeIntake Total 480 ml 900 ml OutputOutput Total 0 ml BalanceBalance 480 ml 900 ml Results Result Diagram: 06/28/1852106/28/18521 Medications Medications Current Medications IV Flush (NS 3 ml) 3 ml PER PROTOCOL IV ; Start 06/20/18 at 20:30 Ondansetron HCl (Zofran Tab) 4 mg Q6H PRN PO NAUSEA/VOMITING; Start 06/20/18 at 20:30 Acetaminophen (Tylenol Tab) 650 mg Q6H PRN PO .PAIN 1-3 OR TEMP; Start 06/20/18 at 20:30 Acetaminophen/ Hydrocodone Bitart ([place] (5/325)) 1 tab Q6H PRN PO .MOD PAIN 4- 6 Last administered on 06/21/18at 20:11; Admin Dose 1 TAB; Start 06/20/18 at 20:30 Docusate Sodium (Colace) 100 mg Q12H PRN PO .CONSTIPATION Last administered on 06/22/18 08:48; Admin Dose 100 MG; Start 06/20/18 at 20:30 Bisacodyl (Dulcolax) 5 mg DAILY PRN PO .CONSTIPATION Last administered on 06/24/18 08:46; Admin Dose 5 MG; Start 06/20/18 at 20:30 Enalaprilat (Vasotec Iv) 0.625 mg Q4H PRN IV ELEVATED BLOOD PRESSURE; Start 06/20/18 at 20:30 Albuterol/ Ipratropium (Duoneb) 3 ml Q4H RESP THERAPY PRN HHN SHORTNESS OF BREATH; Start 06/20/18 at 20:30 Morphine Sulfate (morphine) 1 mg Q4H PRN IV SEVERE PAIN LEVEL 7-10 Last administered on 06/21/18at 21:23; Admin Dose 1 MG; Start 06/21/18 at 21:30 Polyethylene Glycol (Miralax) 17 gm DAILY PRN PO CONSTIPATION Last administered on 06/24/18at 08:46; Admin Dose 17 GM; Start 06/23/18 at 09:00 Benzonatate (Tessalon) 100 mg TID PRN PO cough Last administered on 06/27/18at 22:16; Admin Dose 100 MG; Start 06/26/18 at 11:30 VTE Prophylaxis Risk score (from [facility] [place])>0 risk: 2 SCD applied (from [facility] [place]): Yes Lines/Catheters IV Catheter Type: Talavera in Place: No Assessment/Plan Hospital Course Subjective Patient doing well, no acute complaints Objective Physical exam General: Patient is laying in bed and answers questions appropriately Mentation: Patient is alert and oriented 4, Head: Normocephalic atraumatic Eyes: EOMI, pupils reactive to light Neck: Supple, nontender, midline Respiratory: Coarse to auscultation bilaterally Cardiovascular: regular rate, murmur heard Gastrointestinal: non-tender to palpation, bowel sounds heard. Neurological: Moves all extremities spontaneously Skin: No new skin lesions Assessment/Plan 1. Left sided pleural effusion s/p chest tube placement - Repeat CT scan shows minimal pleural effusion and changes consistent with carcinomatosis - Pulm on board and appreciate recommendations. Continue chest tube - MRI, CT A/P negative for any signs of metastasis - Pleural fluid cytology negative, cx negative to date - Oncology recommendations appreciated. - CEA, CA 19, and CA125 within normal limits -CT surgery consulted for VATS, stated he believes more mesothelioma versus carcinomatosis, surgery scheduled for June 29, sunday. 2. h/o lung nodule in 2011 - patient did not follow up on lung nodule findings 3. Disposition -VATS for possible biopsy vs pleurodesis vs pleurectomy or other on Sunday ISIDORO SHEPPARD Jun 28, 2018 13:25
--- NOTE | 2018-06-28 13:56 | CONS ---
Assessment/Plan Assessment/Plan Hospital Course (Demo Recall) pleasant 53 yo with large pleural effusion and nodularity concerning for malignancy -no liver mets -s/p thoracentesis, cytology negative for malignancy. needs pleural biopsy. CT surgery consulted, ?mesothelioma -s/p pleurex - MRI brain done to rule out brain mets--NEGATIVE discussed with son and daughter at bedside once he is stable and s/p VATS tomorrow, can f/u as outpt to discuss path re sults and treatment options Consultation Date/Type/Reason Admit Date/Time Jun 20, 2018 at 19:35 Initial Consult Date Requesting Provider: AMIRA SAMPSON MD, [facility] Date/Time of Note DATE: 06/28/18 TIME: 13:56 24 HR Interval Summary Free Text/Dictation surgery tomorrow Exam/Review of Systems Exam Vitals Vital Signs Date Temp Pulse Resp B/P (MAP) Pulse Ox O2 O2 Flow FiO2 Time Delivery Rate 06/28/18 Nasal 2.0 07:47 Cannula 06/28/18 98.5 79 18 115/72 95 07:34 (86) Intake and Output 06/27/18 06/27/18 06/28/18 1515:00 23:00 07:00 IntakeIntake Total 480 ml 900 ml OutputOutput Total 0 ml BalanceBalance 480 ml 900 ml Results Result Diagram: 06/28/1822 06/28/18 0522 Results 24hrs Laboratory Tests Test 06/28/18 05:22 06/28/18 09:02 White Blood Count 10.7 Red Blood Count 4.97 Hemoglobin 14.2 Hematocrit 42.2 Mean Corpuscular Volume 84.9 Mean Corpuscular Hemoglobin 28.6 L Mean Corpuscular Hemoglobin Concent 33.6 Red Cell Distribution Width 12.6 Platelet Count 376 Mean Platelet Volume 8.8 Immature Granulocytes % 0.600 H Neutrophils % 66.5 Lymphocytes % 18.3 Monocytes % 10.0 Eosinophils % 3.9 Basophils % 0.7 Nucleated Red Blood Cells % 0.0 Immature Granulocytes # 0.060 H Neutrophils # 7.1 Lymphocytes # 2.0 Monocytes # 1.1 H Eosinophils # 0.4 Basophils # 0.1 Nucleated Red Blood Cells # 0.0 Sodium Level 139 Potassium Level 4.1 Chloride Level 104 Carbon Dioxide Level 29 Anion Gap 6 Blood Urea Nitrogen 13 Creatinine 0.68 Est Glomerular Filtrat Rate mL/min > 60 Glucose Level 102 Calcium Level 8.6 Phosphorus Level 3.8 Magnesium Level 2.2 Lab Scanned Report REFERENCE LAB Medications Medication Current Medications IV Flush (NS 3 ml) 3 ml PER PROTOCOL IV ; Start 06/20/18 at 20:30 Ondansetron HCl (Zofran Tab) 4 mg Q6H PRN PO NAUSEA/VOMITING; Start 06/20/18 at 20:30 Acetaminophen (Tylenol Tab) 650 mg Q6H PRN PO .PAIN 1-3 OR TEMP; Start 06/20/18 at 20:30 Acetaminophen/ Hydrocodone Bitart ([place] (5/325)) 1 tab Q6H PRN PO .MOD PAIN 4- 6 Last administered on 06/21/18 20:11; Admin Dose 1 TAB; Start 06/20/18 at 20:30 Docusate Sodium (Colace) 100 mg Q12H PRN PO .CONSTIPATION Last administered on 06/22/18 08:48; Admin Dose 100 MG; Start 06/20/18 at 20:30 Bisacodyl (Dulcolax) 5 mg DAILY PRN PO .CONSTIPATION Last administered on 06/24/18 08:46; Admin Dose 5 MG; Start 06/20/18 at 20:30 Enalaprilat (Vasotec Iv) 0.625 mg Q4H PRN IV ELEVATED BLOOD PRESSURE; Start 06/20/18 at 20:30 Albuterol/ Ipratropium (Duoneb) 3 ml Q4H RESP THERAPY PRN HHN SHORTNESS OF BREATH; Start 06/20/18 at 20:30 Morphine Sulfate (morphine) 1 mg Q4H PRN IV SEVERE PAIN LEVEL 7-10 Last administered on 06/21/18 21:23; Admin Dose 1 MG; Start 06/21/18 at 21:30 Polyethylene Glycol (Miralax) 17 gm DAILY PRN PO CONSTIPATION Last administered on 06/24/18 08:46; Admin Dose 17 GM; Start 06/23/18 at 09:00 Benzonatate (Tessalon) 100 mg TID PRN PO cough Last administered on 06/27/18 22:16; Admin Dose 100 MG; Start 06/26/18 at 11:30 JERRICA LUNDBERG Jun 28, 2018 13:56
[2018-06-28 14:10] VITALS: BP 113/74; PULSE 90; RESP 18
[2018-06-28 20:00] VITALS: BP 144/84; PULSE 96; RESP 18
[2018-06-29] VITALS (25 sets, daily range): BP systolic 109–150; BP diastolic 69–100; PULSE 73–88; RESP 15–20
--- NOTE | 2018-06-29 09:41 | PREAC ---
Date/Time of Note Date/Time of Note DATE: 06/29/18 TIME: 09:38 Anesthesia Eval and Record Evaluation Time Pre-Procedure Interview DATE: 06/29/18 TIME: 09:38 Age 53 Sex male NPO: 8 hrs Preoperative diagnosis Lt pleura effusion Planned procedure Lt thoracoscopy Past Medical History Past Medical History: Includes Pulm: Smoking Hx, COPD Surgery & Anesthesia Issues No known issue Meds Anticoagulation: No Beta Eulogio within 24 hr: No Reason Beta Eulogio not given: Pt. not on B-Eulogio Current Medications IV Flush (NS 3 ml) 3 ml PER PROTOCOL IV ; Start 06/20/18 at 20:30 Ondansetron HCl (Zofran Tab) 4 mg Q6H PRN PO NAUSEA/VOMITING; Start 06/20/18 at 20:30 Acetaminophen (Tylenol Tab) 650 mg Q6H PRN PO .PAIN 1-3 OR TEMP; Start 06/20/18 at 20:30 Acetaminophen/ Hydrocodone Bitart ([place] (5/325)) 1 tab Q6H PRN PO .MOD PAIN 4- 6 Last administered on 06/21/18 20:11; Admin Dose 1 TAB; Start 06/20/18 at 20:30 Docusate Sodium (Colace) 100 mg Q12H PRN PO .CONSTIPATION Last administered on 06/22/18 08:48; Admin Dose 100 MG; Start 06/20/18 at 20:30 Bisacodyl (Dulcolax) 5 mg DAILY PRN PO .CONSTIPATION Last administered on 06/24/18 08:46; Admin Dose 5 MG; Start 06/20/18 at 20:30 Enalaprilat (Vasotec Iv) 0.625 mg Q4H PRN IV ELEVATED BLOOD PRESSURE; Start 06/20/18 at 20:30 Albuterol/ Ipratropium (Duoneb) 3 ml Q4H RESP THERAPY PRN HHN SHORTNESS OF BREATH; Start 06/20/18 at 20:30 Morphine Sulfate (morphine) 1 mg Q4H PRN IV SEVERE PAIN LEVEL 7-10 Last administered on 06/21/18 21:23; Admin Dose 1 MG; Start 06/21/18 at 21:30 Polyethylene Glycol (Miralax) 17 gm DAILY PRN PO CONSTIPATION Last administered on 06/24/18 08:46; Admin Dose 17 GM; Start 06/23/18 at 09:00 Benzonatate (Tessalon) 100 mg TID PRN PO cough Last administered on 06/27/18at 22:16; Admin Dose 100 MG; Start 06/26/18 at 11:30 Meds reviewed: Yes Allergies Coded Allergies: No Known Allergy (Unverified , 06/20/18) Allergies Reviewed: Yes Labs/Studies Labs Reviewed: Reviewed by anesthesiologist Result Diagram: 06/29/1815 06/29/1815 Laboratory Tests 06/29/18 05:15 test: N/A Studies: ECG Pre-procedure Exam Last vitals Vital Signs Date Temp Pulse Resp B/P (MAP) Pulse Ox O2 O2 Flow FiO2 Time Delivery Rate 06/29/18 Nasal 2.0 08:55 Cannula 06/29/18 98.7 73 16 109/69 96 07:23 (82) Airway: Adequate mouth opening, Adequate thyromental dist Mallampati: Mallampati II Teeth: Normal Lung: Normal Heart: Normal ASA Physical Status ASA physical status: 3 Emergency: None Planned Anesthetic General/MAC: ETT Planned Pain Management Parenteral pain med Pre-operative Attestations Prior to commencing anesthesia and surgery, the patient was re-evaluated, there was verification of: *The patient's identity *The results of appropriate recent lab work and preoperative vital signs *The above evaluation not changing prior to induction *Anesthetic plan, risk benefits, alternative and complications discussed with patient/family; questions answered; patient/family understands, accepts and wishes to proceed. WINSOME CLAY MD Jun 29, 2018 09:41
[2018-06-29] MEDS ORDERED: MIDAZOLAM 1 MG/ML 2 ML INJ ONE (09:57)
[2018-06-29] MEDS ORDERED: FENTAnyl 50 MCG/ML VIAL ONE (10:21)
[2018-06-29] MEDS ORDERED: LIDOCAINE 2% (SDV) 5 ML INJ ONE (11:08)
[2018-06-29] MEDS ORDERED: NEOSTIGMINE 3 MG/3 ML SYRINGE ONE (11:08)
[2018-06-29] MEDS ORDERED: ROCURONIUM 50 MG INJ ONE (11:08)
[2018-06-29] MEDS ORDERED: PROPOFOL 20 ML ONE (11:08)
[2018-06-29] MEDS ORDERED: GLYCOPYRROLATE 0.4 MG INJ ONE (11:08)
--- NOTE | 2018-06-29 11:13 | SIPON ---
Date/Time of Note Date/Time of Note DATE: 06/29/18 TIME: 11:11 Operative Report Preoperative Diagnosis rule out pleural carcinamatosis Postoperative Diagnosis same Operation/Procedure Performed right VATs and pleural biopsy, insertion of pleurx catheter Surgeon see signature line cement tester assistant Cordelia GEORGE Anesthesia: general Estimated blood loss: 0 - 10 ml's Transfusion Required none Specimen none Grafts/Implants none Complications none KASI PETERSON MD Jun 29, 2018 11:13
[2018-06-29] MEDS ORDERED: ONDANSETRON 4 MG INJ ONE (11:20)
[2018-06-29] MEDS ORDERED: HYDROmorphONE 0.5 MG/0.5 ML SYG IV PRN (11:30)
[2018-06-29] MEDS ORDERED: ONDANSETRON 4 MG INJ IV PRN ×2 (11:30→12:00)
--- NOTE | 2018-06-29 11:33 | PAC ---
Date/Time of Note Date/Time of Note DATE: 06/29/18 TIME: 11:32 Post-Anesthesia Notes Post-Anesthesia Note Last documented vital signs Vital Signs Date Temp Pulse Resp B/P (MAP) Pulse Ox O2 O2 Flow FiO2 Time Delivery Rate 06/29/18 98.0 11:29 06/29/18 Nasal 2.0 08:55 Cannula 06/29/18 73 16 109/69 96 07:23 (82) Activity: WNL Respiratory function: WNL Cardiovascular function: WNL Mental status: Baseline Pain reasonably controlled: Yes Hydration appropriate: Yes Nausea/Vomiting absent: Yes Comments BP:112/56, P:768, Spo2:99%, T:98,8 WINSOME CLAY MD Jun 29, 2018 11:33
[2018-06-29] MEDS ORDERED: MEPERIDINE 25 MG INJ IV PRN (12:00)
[2018-06-29] MEDS ORDERED: DIPHENHYDRAMINE 50 MG INJ IV PRN (12:00)
[2018-06-29] MEDS ORDERED: HYDROmorphONE 1 MG/5 ML IV SYRINGE IV PRN ×2 (12:00)
[2018-06-29] MEDS ORDERED: FENTAnyl 50 MCG/ML VIAL IV PRN (12:00)
[2018-06-29] MEDS ORDERED: METOCLOPRAMIDE 10 MG INJ IV PRN (12:00)
--- NOTE | 2018-06-29 13:00 | PN ---
Date/Time of Note Date/Time of Note DATE: 06/29/18 TIME: 12:59 Objective Vitals Vital Signs Date Temp Pulse Resp B/P (MAP) Pulse Ox O2 O2 Flow FiO2 Time Delivery Rate 06/29/18 82 19 131/89 96 Nasal 3.0 12:42 (103) Cannula 06/29/18 98.0 11:29 Intake and Output 06/28/18 06/28/18 06/29/18 1515:00 23:00 07:00 IntakeIntake Total 1720 ml 360 ml OutputOutput Total 0 ml BalanceBalance 1720 ml 360 ml Results Result Diagram: 06/29/18 0515 06/29/18 0515 Medications Medications Current Medications IV Flush (NS 3 ml) 3 ml PER PROTOCOL IV ; Start 06/20/18 at 20:30 Ondansetron HCl (Zofran Tab) 4 mg Q6H PRN PO NAUSEA/VOMITING; Start 06/20/18 at 20:30 Docusate Sodium (Colace) 100 mg Q12H PRN PO .CONSTIPATION Last administered on 06/22/18 08:48; Admin Dose 100 MG; Start 06/20/18 at 20:30 Bisacodyl (Dulcolax) 5 mg DAILY PRN PO .CONSTIPATION Last administered on 06/24/18 08:46; Admin Dose 5 MG; Start 06/20/18 at 20:30 Enalaprilat (Vasotec Iv) 0.625 mg Q4H PRN IV ELEVATED BLOOD PRESSURE; Start at 20:30 Albuterol/ Ipratropium (Duoneb) 3 ml Q4H RESP THERAPY PRN HHN SHORTNESS OF BREATH; Start 06/20/18 at 20:30 Polyethylene Glycol (Miralax) 17 gm DAILY PRN PO CONSTIPATION Last administered on 06/24/18 08:46; Admin Dose 17 GM; Start 06/23/18 at 09:00 Benzonatate (Tessalon) 100 mg TID PRN PO cough Last administered on 06/27/18 22:16; Admin Dose 100 MG; Start 06/26/18 at 11:30 Cefazolin Sodium/ Dextrose 50 ml @ 100 mls/hr Q8 IVPB ; Start 06/29/18 at 12:30 Hydromorphone HCl (Dilaudid) 0.5 mg Q6H PRN IV PAIN LEVEL 6-10; Start 06/29/18 at 11:30 Oxycodone/ Acetaminophen (Percocet (5/ 325)) 1 tab Q6H PRN PO PAIN LEVEL 6-10; Start 06/29/18 at 11:30 Acetaminophen (Tylenol Tab) 650 mg Q6H PRN PO MILD PAIN(1-3)OR ELEVATED TEMP; Start 06/29/18 at 11:30 Ondansetron HCl (Zofran Inj) 4 mg Q6H PRN IV NAUSEA AND/OR VOMITING; Start 06/29/18 at 11:30 Enoxaparin Sodium (Lovenox) 40 mg DAILY@07 SC ; Start 06/30/18 at 07:00 Hydromorphone HCl (Dilaudid) 0.2 mg PACU PRN IV MILD PAIN 1-3; Start 06/29/18 at 12:00; Stop 06/29/18 at 16:00 Hydromorphone HCl (Dilaudid) 0.4 mg PACU PRN IV MOD PAIN 4-6 Last administered on 06/29/18at 12:39; Admin Dose 0.4 MG; Start 06/29/18 at 12:00; Stop 06/29/18 at 16:00 Fentanyl (Sublimaze) 25 mcg PACU ORDER PRN IV MILD PAIN 1-3; Start 06/29/18 at 12:00; Stop 06/29/18 at 16:00 Ondansetron HCl (Zofran Inj) 4 mg PACU ORDER PRN IV NAUSEA/VOMITING; Start 06/29/18 at 12:00; Stop 06/29/18 at 16:00 Metoclopramide HCl (Reglan) 10 mg PACU ORDER PRN IV NAUSEA/VOMITING; Start 06/29/18 at 12:00; Stop 06/29/18 at 16:00 Meperidine HCl (Demerol) 25 mg PACU ORDER PRN IV .RIGORS; Start 06/29/18 at 12:00; Stop 06/29/18 at 16:00 Diphenhydramine HCl (Benadryl) 25 mg PACU ORDER PRN IV .PRURITUS; Start 06/29/18 at 12:00; Stop 06/29/18 at 16:00 VTE Prophylaxis Risk score (from [facility])>0 risk: 1 SCD applied (from [facility]): Yes Lines/Catheters IV Catheter Type: Talavera in Place: No Assessment/Plan Hospital Course Subjective Patient doing well after VATS, in PACU right now, complains of some headache but pain is mild. Some nausea Objective Physical exam General: Patient is laying in bed and answers questions appropriately Mentation: Patient is alert and oriented 4, Head: Normocephalic atraumatic Eyes: EOMI, pupils reactive to light Neck: Supple, nontender, midline Respiratory: Coarse to auscultation bilaterally Cardiovascular: regular rate, murmur heard Gastrointestinal: non-tender to palpation, bowel sounds heard. Neurological: Moves all extremities spontaneously Skin: No new skin lesions Assessment/Plan 1. Left sided pleural effusion s/p VATS with pleural biopsy on June 29, 2018 - Repeat CT scan shows minimal pleural effusion and changes consistent with carcinomatosis - Pulm on board and appreciate recommendations. Continue chest tube - MRI, CT A/P negative for any signs of metastasis - Pleural fluid cytology negative, cx negative to date - Oncology recommendations appreciated. - CEA, CA 19, and CA125 within normal limits -Awaiting pleural biopsy results -Pleurx catheter in 2. h/o lung nodule in 2012 - patient did not follow up on lung nodule findings 3. Disposition -Await pleural biopsy results ISIDORO SHEPPARD Jun 29, 2018 13:00
[2018-06-29] MEDS: OXYCODONE/ACETAMINOPHEN (5/325) TAB PO PRN (13:30)
[2018-06-29] MEDS: CEFAZOLIN 2 GM/50 ML (PMX) 50 ML IVPB SCH ×2 (14:59→23:05)
--- NOTE | 2018-06-29 19:28 | OPR ---
DATE OF OPERATION: 06/29/2018 PREOPERATIVE DIAGNOSIS: Recurrent left pleural effusion, rule out pulmonary carcinomatosis. POSTOPERATIVE DIAGNOSIS: Recurrent left pleural effusion, rule out pulmonary carcinomatosis. PROCEDURES: Right thoracoscopy, partial decortication, pleural biopsy, insertion of a PleurX cathete r and also flexible bronchoscopy. SURGEON: Kasi Parrish MD [employer] CONSULTANT: DORIS Ragsdale ANESTHESIOLOGIST: Dr. Zamora. TYPE OF ANESTHESIA: Double lumen general endotracheal. COMPLICATIONS: None. FINDINGS: Endobronchially, there were no lesions or intrathoracic bleeding. He had multiple studdin g of his pleura and his lungs with a loculated pleural effusion. Final pathology pending. INDICATIONS: The patient is a 53-year-old male who was admitted with shortness of breath and found t o have a large pleural effusion. He had a thoracentesis, and the fluid was negative for cytology. F ollowup CT scan was concerning for pulmonary carcinomatosis. He is referred for VATS pleural biopsy. Risks, benefits, and alternatives were explained to the patient and his son who understood and cons ented. DESCRIPTION OF PROCEDURE: The patient was brought to the operating room. He was placed in supine po sition. He was induced and underwent double lumen general endotracheal intubation without complicati ons. Bronchoscope was introduced into the left and right mainstem and into the bronchi. There were no endobronchial lesions. We then turned the patient left side up. He was prepped and draped in usu al sterile fashion. A small trocar incision was made in the seventh interspace. We placed an Sg wound retractor. We drained about 400 mL of serosanguineous fluid. He had multiple areas of studdi ng with, what appeared to be, pulmonary masses. They were studding the entire visceral pleura and pa rietal pleura. Multiple biopsies were taken. We did try to decorticate part of his lung, but becaus e of the significant amount of lung nodules, this was not completely accomplished. At this point, we decided to place a PleurX catheter which was tunneled and placed subcutaneously into the thoracic ca vity. We then closed the incision using 0 Vicryl for the deep layer, 3-0 Vicryl for the subcutaneous tissue and 4-0 Monocryl for the skin. The PleurX catheter was secured using a nylon suture. Dressi ngs were applied. The patient was extubated and taken to recovery room in stable condition. Dictated By: KASI WHEATLEY/SADAF Conf#: [id number] DID#: [id number] CC: ISIDORO SHEPPARD MD; KALI GEORGE; TON GASCA MD; ISIDORO SHEPPARD;*EndCC*
--- NOTE | 2018-06-29 21:59 | CONS ---
Consult Date/Type/Reason Admit Date/Time Jun 20, 2018 at 19:35 Initial Consult Date 06/26/18 Type of Consultation: Pulm Requesting Provider: AMIRA SAMPSON MD, [facility] Date/Time of Note DATE: 06/29/18 TIME: 21:56 Subjective s/p left VATS pleural biopsy debridement and pleurX catheter insertion Objective Vitals Vital Signs Date Temp Pulse Resp B/P (MAP) Pulse Ox O2 O2 Flow FiO2 Time Delivery Rate 06/29/18 98.1 88 17 125/69 98 20:47 (87) 06/29/18 Nasal 3.0 16:00 Cannula Intake and Output 06/28/18 06/28/18 06/29/18 1414:59 22:59 06:59 IntakeIntake Total 1720 ml 360 ml OutputOutput Total 0 ml 0 ml BalanceBalance 1720 ml 360 ml Exam HEENT: Neck supple; no JVD; no LAD CVS: RRR, S1 and S2 CHEST: Decreased BS left base ABD: Soft, NT, + BS EXT: No c/c/e Results/Medications Result Diagram: 06/29/1815 06/29/18 0515 Results 24 hrs Laboratory Tests Test 06/29/18 05:15 White Blood Count 10.5 Red Blood Count 4.82 Hemoglobin 14.1 Hematocrit 41.8 L Mean Corpuscular Volume 86.7 Mean Corpuscular Hemoglobin 29.3 Mean Corpuscular Hemoglobin Concent 33.7 Red Cell Distribution Width 12.3 Platelet Count 405 Mean Platelet Volume 9.2 Immature Granulocytes % 0.500 H Neutrophils % 66.3 Lymphocytes % 19.4 Monocytes % 9.4 Eosinophils % 3.7 Basophils % 0.7 Nucleated Red Blood Cells % 0.0 Immature Granulocytes # 0.050 H Neutrophils # 7.0 Lymphocytes # 2.0 Monocytes # 1.0 H Eosinophils # 0.4 Basophils # 0.1 Nucleated Red Blood Cells # 0.0 Sodium Level 140 Potassium Level 3.9 Chloride Level 104 Carbon Dioxide Level 28 Anion Gap 8 Blood Urea Nitrogen 11 Creatinine 0.64 Est Glomerular Filtrat Rate mL/min > 60 Glucose Level 98 Calcium Level 8.8 Phosphorus Level 3.8 Magnesium Level 2.3 Medications Current Medications IV Flush (NS 3 ml) 3 ml PER PROTOCOL IV ; Start 06/20/18 at 20:30 Ondansetron HCl (Zofran Tab) 4 mg Q6H PRN PO NAUSEA/VOMITING; Start 06/20/18 at 20:30 Docusate Sodium (Colace) 100 mg Q12H PRN PO .CONSTIPATION Last administered on 06/22/18 08:48; Admin Dose 100 MG; Start 06/20/18 at 20:30 Bisacodyl (Dulcolax) 5 mg DAILY PRN PO .CONSTIPATION Last administered on 06/24/18 08:46; Admin Dose 5 MG; Start 06/20/18 at 20:30 Enalaprilat (Vasotec Iv) 0.625 mg Q4H PRN IV ELEVATED BLOOD PRESSURE; Start 06/20/18 at 20:30 Albuterol/ Ipratropium (Duoneb) 3 ml Q4H RESP THERAPY PRN HHN SHORTNESS OF BREATH; Start 06/20/18 at 20:30 Polyethylene Glycol (Miralax) 17 gm DAILY PRN PO CONSTIPATION Last administered on 06/24/18 08:46; Admin Dose 17 GM; Start 06/23/18 at 09:00 Benzonatate (Tessalon) 100 mg TID PRN PO cough Last administered on 06/27/18 22:16; Admin Dose 100 MG; Start 06/26/18 at 11:30 Cefazolin Sodium/ Dextrose 50 ml @ 100 mls/hr Q8 IVPB Last administered on 06/29/18 14:59; Admin Dose 100 MLS/HR; Start 06/29/18 at 12:30 Hydromorphone HCl (Dilaudid) 0.5 mg Q6H PRN IV PAIN LEVEL 6-10; Start 06/29/18 at 11:30 Oxycodone/ Acetaminophen (Percocet (5/ 325)) 1 tab Q6H PRN PO PAIN LEVEL 6-10 Last administered on 06/29/18 13:30; Admin Dose 1 TAB; Start 06/29/18 at 11:30 Acetaminophen (Tylenol Tab) 650 mg Q6H PRN PO MILD PAIN(1-3)OR ELEVATED TEMP; Start 06/29/18 at 11:30 Ondansetron HCl (Zofran Inj) 4 mg Q6H PRN IV NAUSEA AND/OR VOMITING; Start 06/29/18 at 11:30 Enoxaparin Sodium (Lovenox) 40 mg DAILY@07 SC ; Start 06/30/18 at 07:00 Assessment/Plan Assessment/Plan (Daily) IMP 1. Left pleural effusion with nodular changes--concerning for malignancy--s/p VATS biopsy and pleurX insertion. RECS: 1. Post-op care 2. Incentive spirometry 10 efforts Q 1 hour while awake 3. F/U pleural pathology BRAULIO WADE MD Jun 29, 2018 21:59
[2018-06-30] VITALS (12 sets, daily range): BP systolic 110–124; BP diastolic 70–81; PULSE 61–102; RESP 18
[2018-06-30] MEDS: CEFAZOLIN 2 GM/50 ML (PMX) 50 ML IVPB SCH ×3 (07:41→22:00)
[2018-06-30] MEDS: ENOXAPARIN 40 MG/0.4 ML SYG SC SCH (07:47)
--- NOTE | 2018-06-30 09:57 | PN ---
Date/Time of Note Date/Time of Note DATE: 06/30/18 TIME: 09:55 Assessment/Plan VTE Prophylaxis Risk score (from Ns)>0 risk: 1 SCD applied (from Ns): Yes Pharmacological prophylaxis: NA/contraindicated, LMWH Pharm contraindication: bleeding Lines/Catheters IV [facility] ([facility]): Peripheral IV Urinary Cath still in place: No Assessment/Plan Assessment/Plan Feels well. CXR improved post fluid drainage. Has extensive tumor in chest. Pleurx cath left behind to be used for intermittent drainage at home. Result Diagram: 06/30/1847 06/30/1847 Results 24hrs Laboratory Tests Test 06/30/18 05:47 White Blood Count 13.1 #H Red Blood Count 5.05 Hemoglobin 14.6 Hematocrit 43.2 Mean Corpuscular Volume 85.5 Mean Corpuscular Hemoglobin 28.9 L Mean Corpuscular Hemoglobin Concent 33.8 Red Cell Distribution Width 12.3 Platelet Count 426 H Mean Platelet Volume 9.0 Immature Granulocytes % 0.300 Neutrophils % 78.3 H Lymphocytes % 11.8 L Monocytes % 8.2 Eosinophils % 1.1 Basophils % 0.3 Nucleated Red Blood Cells % 0.0 Immature Granulocytes # 0.040 H Neutrophils # 10.2 H Lymphocytes # 1.5 Monocytes # 1.1 H Eosinophils # 0.1 Basophils # 0.0 Nucleated Red Blood Cells # 0.0 Sodium Level 135 Potassium Level 4.6 Chloride Level 99 Carbon Dioxide Level 29 Anion Gap 7 Blood Urea Nitrogen 14 Creatinine 0.69 Est Glomerular Filtrat Rate mL/min > 60 Glucose Level 120 Calcium Level 8.8 Phosphorus Level 4.1 Magnesium Level 2.1 Exam/Review of Systems Exam Vitals Vital Signs Date Temp Pulse Resp B/P (MAP) Pulse Ox O2 O2 Flow FiO2 Time Delivery Rate 06/30/18 88 08:00 06/30/18 98.8 18 110/71 98 07:44 (84) 06/30/18 Nasal 3.0 07:30 Cannula Intake and Output 06/29/18 06/29/18 06/30/18 1515:00 23:00 07:00 IntakeIntake Total 800 ml 300 ml OutputOutput Total 425 ml 200 ml BalanceBalance 375 ml 100 ml Results Results 24hrs Laboratory Tests Test 06/30/18 05:47 White Blood Count 13.1 #H Red Blood Count 5.05 Hemoglobin 14.6 Hematocrit 43.2 Mean Corpuscular Volume 85.5 Mean Corpuscular Hemoglobin 28.9 L Mean Corpuscular Hemoglobin Concent 33.8 Red Cell Distribution Width 12.3 Platelet Count 426 H Mean Platelet Volume 9.0 Immature Granulocytes % 0.300 Neutrophils % 78.3 H Lymphocytes % 11.8 L Monocytes % 8.2 Eosinophils % 1.1 Basophils % 0.3 Nucleated Red Blood Cells % 0.0 Immature Granulocytes # 0.040 H Neutrophils # 10.2 H Lymphocytes # 1.5 Monocytes # 1.1 H Eosinophils # 0.1 Basophils # 0.0 Nucleated Red Blood Cells # 0.0 Sodium Level 135 Potassium Level 4.6 Chloride Level 99 Carbon Dioxide Level 29 Anion Gap 7 Blood Urea Nitrogen 14 Creatinine 0.69 Est Glomerular Filtrat Rate mL/min > 60 Glucose Level 120 Calcium Level 8.8 Phosphorus Level 4.1 Magnesium Level 2.1 Medications Medication Current Medications IV Flush (NS 3 ml) 3 ml PER PROTOCOL IV ; Start 06/20/18 at 20:30 Ondansetron HCl (Zofran Tab) 4 mg Q6H PRN PO NAUSEA/VOMITING; Start 06/20/18 at 20:30 Docusate Sodium (Colace) 100 mg Q12H PRN PO .CONSTIPATION Last administered on 06/22/18 08:48; Admin Dose 100 MG; Start 06/20/18 at 20:30 Bisacodyl (Dulcolax) 5 mg DAILY PRN PO .CONSTIPATION Last administered on 06/24/18 08:46; Admin Dose 5 MG; Start 06/20/18 at 20:30 Enalaprilat (Vasotec Iv) 0.625 mg Q4H PRN IV ELEVATED BLOOD PRESSURE; Start 06/20/18 at 20:30 Albuterol/ Ipratropium (Duoneb) 3 ml Q4H RESP THERAPY PRN HHN SHORTNESS OF BREATH; Start 06/20/18 at 20:30 Polyethylene Glycol (Miralax) 17 gm DAILY PRN PO CONSTIPATION Last administered on 06/24/18 08:46; Admin Dose 17 GM; Start 06/23/18 at 09:00 Benzonatate (Tessalon) 100 mg TID PRN PO cough Last administered on 06/27/18 22:16; Admin Dose 100 MG; Start 06/26/18 at 11:30 Cefazolin Sodium/ Dextrose 50 ml @ 100 mls/hr Q8 IVPB Last administered on 06/30/18at 07:41; Admin Dose 100 MLS/HR; Start 06/29/18 at 12:30 Hydromorphone HCl (Dilaudid) 0.5 mg Q6H PRN IV PAIN LEVEL 6-10; Start 06/29/18 at 11:30 Oxycodone/ Acetaminophen (Percocet (5/ 325)) 1 tab Q6H PRN PO PAIN LEVEL 6-10 Last administered on 06/29/18at 13:30; Admin Dose 1 TAB; Start 06/29/18 at 11:30 Acetaminophen (Tylenol Tab) 650 mg Q6H PRN PO MILD PAIN(1-3)OR ELEVATED TEMP; Start 06/29/18 at 11:30 Ondansetron HCl (Zofran Inj) 4 mg Q6H PRN IV NAUSEA AND/OR VOMITING; Start 06/29/18 at 11:30 Enoxaparin Sodium (Lovenox) 40 mg DAILY@07 SC Last administered on 06/30/18at 07:47; Admin Dose 40 MG; Start 06/30/18 at 07:00 RIYA JAMISON MD Jun 30, 2018 09:57
[2018-06-30] MEDS: ACETAMINOPHEN 325 MG TAB PO PRN (11:22)
--- NOTE | 2018-06-30 11:54 | PN ---
Date/Time of Note Date/Time of Note DATE: 06/30/18 TIME: 11:54 Objective Vitals Vital Signs Date Temp Pulse Resp B/P (MAP) Pulse Ox O2 O2 Flow FiO2 Time Delivery Rate 06/30/18 100.1 11:22 06/30/18 97 18 120/79 95 11:18 (93) 06/30/18 Nasal 3.0 07:30 Cannula Intake and Output 06/29/18 06/29/18 06/30/18 1515:00 23:00 07:00 IntakeIntake Total 800 ml 300 ml OutputOutput Total 425 ml 200 ml BalanceBalance 375 ml 100 ml Results Result Diagram: 06/30/18 0547 06/30/18 0547 Medications Medications Current Medications IV Flush (NS 3 ml) 3 ml PER PROTOCOL IV ; Start 06/20/18 at 20:30 Ondansetron HCl (Zofran Tab) 4 mg Q6H PRN PO NAUSEA/VOMITING; Start 06/20/18 at 20:30 Docusate Sodium (Colace) 100 mg Q12H PRN PO .CONSTIPATION Last administered on 06/22/18 08:48; Admin Dose 100 MG; Start 06/20/18 at 20:30 Bisacodyl (Dulcolax) 5 mg DAILY PRN PO .CONSTIPATION Last administered on 06/24/18 08:46; Admin Dose 5 MG; Start 06/20/18 at 20:30 Enalaprilat (Vasotec Iv) 0.625 mg Q4H PRN IV ELEVATED BLOOD PRESSURE; Start 06/20/18 at 20:30 Albuterol/ Ipratropium (Duoneb) 3 ml Q4H RESP THERAPY PRN HHN SHORTNESS OF BREATH; Start 06/20/18 at 20:30 Polyethylene Glycol (Miralax) 17 gm DAILY PRN PO CONSTIPATION Last administered on 06/24/18 08:46; Admin Dose 17 GM; Start 06/23/18 at 09:00 Benzonatate (Tessalon) 100 mg TID PRN PO cough Last administered on 06/27/18 22:16; Admin Dose 100 MG; Start 06/26/18 at 11:30 Cefazolin Sodium/ Dextrose 50 ml @ 100 mls/hr Q8 IVPB Last administered on 06/30/18 07:41; Admin Dose 100 MLS/HR; Start 06/29/18 at 12:30 Hydromorphone HCl (Dilaudid) 0.5 mg Q6H PRN IV PAIN LEVEL 6-10; Start 06/29/18 at 11:30 Oxycodone/ Acetaminophen (Percocet (5/ 325)) 1 tab Q6H PRN PO PAIN LEVEL 6-10 Last administered on 06/29/18at 13:30; Admin Dose 1 TAB; Start 06/29/18 at 11:30 Acetaminophen (Tylenol Tab) 650 mg Q6H PRN PO MILD PAIN(1-3)OR ELEVATED TEMP Last administered on 06/30/18at 11:22; Admin Dose 650 MG; Start 06/29/18 at 11:30 Ondansetron HCl (Zofran Inj) 4 mg Q6H PRN IV NAUSEA AND/OR VOMITING; Start 06/29/18 at 11:30 Enoxaparin Sodium (Lovenox) 40 mg DAILY@07 SC Last administered on 06/30/18at 07:47; Admin Dose 40 MG; Start 06/30/18 at 07:00 VTE Prophylaxis Risk score (from Ns)>0 risk: 1 SCD applied (from [facility] [place] No SCD contraindication: other Lines/Catheters IV Catheter Type: Talavera in Place: No Assessment/Plan Hospital Course Subjective Patient doing well after VATS, some mild pain at surgical site Objective Physical exam General: Patient is laying in bed and answers questions appropriately Mentation: Patient is alert and oriented 4, Head: Normocephalic atraumatic Eyes: EOMI, pupils reactive to light Neck: Supple, nontender, midline Respiratory: Coarse to auscultation bilaterally Cardiovascular: regular rate, murmur heard Gastrointestinal: non-tender to palpation, bowel sounds heard. Neurological: Moves all extremities spontaneously Skin: No new skin lesions Assessment/Plan 1. Left sided pleural effusion s/p VATS with pleural biopsy on June 29, 2018 - Repeat CT scan shows minimal pleural effusion and changes consistent with carcinomatosis - Pulm on board and appreciate recommendations. Chest tube removed - MRI, CT A/P negative for any signs of metastasis - Pleural fluid cytology negative, cx negative to date - Oncology recommendations appreciated. - CEA, CA 19, and CA125 within normal limits -Awaiting pleural biopsy results -No Pleurx catheter 2. h/o lung nodule in 2011 - patient did not follow up on lung nodule findings 3. Disposition -Await pleural biopsy results ISIDORO SHEPPARD Jun 30, 2018 11:54
--- NOTE | 2018-06-30 16:50 | CONS ---
Consult Date/Type/Reason Admit Date/Time Jun 20, 2018 at 19:35 Initial Consult Date 06/26/18 Type of Consultation: Pulm Requesting Provider: AMIRA SAMPSON MD, [facility] Date/Time of Note DATE: 06/30/18 TIME: 16:49 Subjective No events overnight. Objective Vitals Vital Signs Date Temp Pulse Resp B/P (MAP) Pulse Ox O2 O2 Flow FiO2 Time Delivery Rate 06/30/18 98.1 86 18 116/75 94 15:11 (89) 06/30/18 Nasal 3.0 07:30 Cannula Intake and Output 06/29/18 06/29/18 06/30/18 1515:00 23:00 07:00 IntakeIntake Total 800 ml 300 ml OutputOutput Total 425 ml 200 ml BalanceBalance 375 ml 100 ml Exam HEENT: Neck supple; no JVD; no LAD CVS: RRR, S1 and S2 CHEST: Decreased BS left base ABD: Soft, NT, + BS EXT: No c/c/e Results/Medications Result Diagram: 06/30/18 0547 06/30/18 0547 Results 24 hrs Laboratory Tests Test 06/30/18 05:47 White Blood Count 13.1 #H Red Blood Count 5.05 Hemoglobin 14.6 Hematocrit 43.2 Mean Corpuscular Volume 85.5 Mean Corpuscular Hemoglobin 28.9 L Mean Corpuscular Hemoglobin Concent 33.8 Red Cell Distribution Width 12.3 Platelet Count 426 H Mean Platelet Volume 9.0 Immature Granulocytes % 0.300 Neutrophils % 78.3 H Lymphocytes % 11.8 L Monocytes % 8.2 Eosinophils % 1.1 Basophils % 0.3 Nucleated Red Blood Cells % 0.0 Immature Granulocytes # 0.040 H Neutrophils # 10.2 H Lymphocytes # 1.5 Monocytes # 1.1 H Eosinophils # 0.1 Basophils # 0.0 Nucleated Red Blood Cells # 0.0 Sodium Level 135 Potassium Level 4.6 Chloride Level 99 Carbon Dioxide Level 29 Anion Gap 7 Blood Urea Nitrogen 14 Creatinine 0.69 Est Glomerular Filtrat Rate mL/min > 60 Glucose Level 120 Calcium Level 8.8 Phosphorus Level 4.1 Magnesium Level 2.1 Medications Current Medications IV Flush (NS 3 ml) 3 ml PER PROTOCOL IV ; Start 06/20/18 at 20:30 Ondansetron HCl (Zofran Tab) 4 mg Q6H PRN PO NAUSEA/VOMITING; Start 06/20/18 at 20:30 Docusate Sodium (Colace) 100 mg Q12H PRN PO .CONSTIPATION Last administered on 06/22/18 08:48; Admin Dose 100 MG; Start 06/20/18 at 20:30 Bisacodyl (Dulcolax) 5 mg DAILY PRN PO .CONSTIPATION Last administered on 06/24/18 08:46; Admin Dose 5 MG; Start 06/20/18 at 20:30 Enalaprilat (Vasotec Iv) 0.625 mg Q4H PRN IV ELEVATED BLOOD PRESSURE; Start 06/20/18 at 20:30 Albuterol/ Ipratropium (Duoneb) 3 ml Q4H RESP THERAPY PRN HHN SHORTNESS OF BREATH; Start 06/20/18 at 20:30 Polyethylene Glycol (Miralax) 17 gm DAILY PRN PO CONSTIPATION Last administered on 06/24/18 08:46; Admin Dose 17 GM; Start 06/23/18 at 09:00 Benzonatate (Tessalon) 100 mg TID PRN PO cough Last administered on 06/27/18 22:16; Admin Dose 100 MG; Start 06/26/18 at 11:30 Cefazolin Sodium/ Dextrose 50 ml @ 100 mls/hr Q8 IVPB Last administered on 06/30/18 13:58; Admin Dose 100 MLS/HR; Start 06/29/18 at 12:30 Hydromorphone HCl (Dilaudid) 0.5 mg Q6H PRN IV PAIN LEVEL 6-10; Start 06/29/18 at 11:30 Oxycodone/ Acetaminophen (Percocet (5/ 325)) 1 tab Q6H PRN PO PAIN LEVEL 6-10 Last administered on 06/29/18 13:30; Admin Dose 1 TAB; Start 06/29/18 at 11:30 Acetaminophen (Tylenol Tab) 650 mg Q6H PRN PO MILD PAIN(1-3)OR ELEVATED TEMP Last administered on 06/30/18 11:22; Admin Dose 650 MG; Start 06/29/18 at 11:30 Ondansetron HCl (Zofran Inj) 4 mg Q6H PRN IV NAUSEA AND/OR VOMITING; Start 06/29/18 at 11:30 Enoxaparin Sodium (Lovenox) 40 mg DAILY@07 SC Last administered on 06/30/18at 07:47; Admin Dose 40 MG; Start 06/30/18 at 07:00 Assessment/Plan Assessment/Plan (Daily) IMP 1. Left pleural effusion with nodular changes--concerning for malignancy--s/p VATS biopsy and pleurX insertion. RECS: 1. Post-op care 2. Incentive spirometry 10 efforts Q 1 hour while awake 3. F/U pleural bx histopathology BRAULIO WADE MD Jun 30, 2018 16:50
[2018-06-30] MEDS: OXYCODONE/ACETAMINOPHEN (5/325) TAB PO PRN (21:14)
[2018-07-01] VITALS (12 sets, daily range): BP systolic 103–125; BP diastolic 66–78; PULSE 82–96; RESP 18–19
[2018-07-01] MEDS: CEFAZOLIN 2 GM/50 ML (PMX) 50 ML IVPB SCH ×2 (05:14→14:01)
[2018-07-01] MEDS: ENOXAPARIN 40 MG/0.4 ML SYG SC SCH (07:48)
--- NOTE | 2018-07-01 10:27 | CONS ---
Assessment/Plan Assessment/Plan Assessment/Plan (Daily) Assessment and recommendations; 1. Patient admitted for left pleural nodular changes with left pleural effusion, status post VATS biopsy. Continue current supportive care. Further recommendations once biopsy results are obtained. Consultation Date/Type/Reason Admit Date/Time Jun 20, 2018 at 19:35 Initial Consult Date 06/26/18 Type of Consult Pulmonary Patient's condition is stable. Denies any shortness of breath or chest pain. General exam; middle-aged male, awake alert, currently in no distress. Reason for Consultation HEENT exam; supple neck, no JVD. No lymphadenopathy. Midline trachea. No thyromegaly. Chest exam; clear to auscultation. S1-S2 audible, no murmurs. Regular rhythm. Left pleural drain in place. Abdomen exam; soft, nontender. No organomegaly. Bowel sounds audible. Extremity exam; no peripheral edema or clubbing. ENTERTAINMENT [employer] exam; no focal deficit. Requesting Provider: AMIRA SAMPSON MD, [facility] Date/Time of Note DATE: 07/01/18 TIME: 10:25 Exam/Review of Systems Exam Vitals Vital Signs Date Temp Pulse Resp B/P (MAP) Pulse Ox O2 O2 Flow FiO2 Time Delivery Rate 07/01/18 95 08:59 07/01/18 99.3 18 116/72 92 07:57 (87) 06/30/18 Nasal 3.0 07:30 Cannula Intake and Output 06/30/18 06/30/18 07/01/18 1515:00 23:00 07:00 IntakeIntake Total 830 ml BalanceBalance 830 ml Results Result Diagram: 07/01/18 0557 07/01/18 0557 Results 24hrs Laboratory Tests Test 07/01/18 05:57 White Blood Count 13.1 H Red Blood Count 4.89 Hemoglobin 14.2 Hematocrit 41.7 L Mean Corpuscular Volume 85.3 Mean Corpuscular Hemoglobin 29.0 Mean Corpuscular Hemoglobin Concent 34.1 Red Cell Distribution Width 12.5 Platelet Count 396 Mean Platelet Volume 8.7 Immature Granulocytes % 0.500 H Neutrophils % 75.5 Lymphocytes % 12.0 L Monocytes % 10.5 Eosinophils % 1.2 Basophils % 0.3 Nucleated Red Blood Cells % 0.0 Immature Granulocytes # 0.060 H Neutrophils # 9.9 H Lymphocytes # 1.6 Monocytes # 1.4 H Eosinophils # 0.2 Basophils # 0.0 Nucleated Red Blood Cells # 0.0 Sodium Level 139 Potassium Level 4.8 Chloride Level 101 Carbon Dioxide Level 33 H Anion Gap 5 Blood Urea Nitrogen 16 Creatinine 0.78 Est Glomerular Filtrat Rate mL/min > 60 Glucose Level 117 Calcium Level 9.0 Phosphorus Level 3.7 Magnesium Level 2.3 Medications Medication Current Medications IV Flush (NS 3 ml) 3 ml PER PROTOCOL IV ; Start 06/20/18 at 20:30 Ondansetron HCl (Zofran Tab) 4 mg Q6H PRN PO NAUSEA/VOMITING; Start 06/20/18 at 20:30 Docusate Sodium (Colace) 100 mg Q12H PRN PO .CONSTIPATION Last administered on 06/22/18 08:48; Admin Dose 100 MG; Start 06/20/18 at 20:30 Bisacodyl (Dulcolax) 5 mg DAILY PRN PO .CONSTIPATION Last administered on 06/24/18 08:46; Admin Dose 5 MG; Start 06/20/18 at 20:30 Enalaprilat (Vasotec Iv) 0.625 mg Q4H PRN IV ELEVATED BLOOD PRESSURE; Start 06/20/18 at 20:30 Albuterol/ Ipratropium (Duoneb) 3 ml Q4H RESP THERAPY PRN HHN SHORTNESS OF BREATH; Start 06/20/18 at 20:30 Polyethylene Glycol (Miralax) 17 gm DAILY PRN PO CONSTIPATION Last administered on 06/24/18 08:46; Admin Dose 17 GM; Start 06/23/18 at 09:00 Benzonatate (Tessalon) 100 mg TID PRN PO cough Last administered on 06/27/18 22:16; Admin Dose 100 MG; Start 06/26/18 at 11:30 Cefazolin Sodium/ Dextrose 50 ml @ 100 mls/hr Q8 IVPB Last administered on 07/01/18 05:14; Admin Dose 100 MLS/HR; Start 06/29/18 at 12:30 Hydromorphone HCl (Dilaudid) 0.5 mg Q6H PRN IV PAIN LEVEL 6-10; Start 06/29/18 at 11:30 Oxycodone/ Acetaminophen (Percocet (5/ 325)) 1 tab Q6H PRN PO PAIN LEVEL 6-10 Last administered on 06/30/18at 21:14; Admin Dose 1 TAB; Start 06/29/18 at 11:30 Acetaminophen (Tylenol Tab) 650 mg Q6H PRN PO MILD PAIN(1-3)OR ELEVATED TEMP Last administered on 06/30/18at 11:22; Admin Dose 650 MG; Start 06/29/18 at 11:30 Ondansetron HCl (Zofran Inj) 4 mg Q6H PRN IV NAUSEA AND/OR VOMITING; Start 06/29/18 at 11:30 Enoxaparin Sodium (Lovenox) 40 mg DAILY@07 SC Last administered on 07/01/18at 0 7:48; Admin Dose 40 MG; Start 06/30/18 at 07:00 SHIMA ARRIAGA Jul 01, 2018 10:27
[2018-07-01] MEDS: ACETAMINOPHEN 325 MG TAB PO PRN (10:41)
--- NOTE | 2018-07-01 10:55 | PN ---
Date/Time of Note Date/Time of Note DATE: 07/01/18 TIME: 10:54 Assessment/Plan VTE Prophylaxis Risk score (from Ns)>0 risk: 1 SCD applied (from Ns): No SCD contraindicated: low risk/ambulating Pharmacological prophylaxis: NA/contraindicated Pharm contraindication: low risk/ambulating Lines/Catheters IV C[facility]ter Type (from [facility] Urinary Cath still in place: No Assessment/Plan Assessment/Plan 1. Left sided pleural effusion s/p VATS with pleural biopsy on June 29, 2018 - Discussed with son once bx results return, will be able to determine further plan of care - Repeat CT scan shows minimal pleural effusion and changes consistent with carcinomatosis - Pulm on board and appreciate recommendations. - MRI, CT A/P negative for any signs of metastasis - Pleural fluid cytology negative, cx negative to date - Oncology recommendations appreciated. - CEA, CA 19, and CA125 within normal limits 2. h/o lung nodule in 2011 - patient did not follow up on lung nodule findings 3. Disposition - Await pleural biopsy results Result Diagram: 07/01/18 0557 07/01/18 0557 Results 24hrs Laboratory Tests Test 07/01/18 05:57 White Blood Count 13.1 H Red Blood Count 4.89 Hemoglobin 14.2 Hematocrit 41.7 L Mean Corpuscular Volume 85.3 Mean Corpuscular Hemoglobin 29.0 Mean Corpuscular Hemoglobin Concent 34.1 Red Cell Distribution Width 12.5 Platelet Count 396 Mean Platelet Volume 8.7 Immature Granulocytes % 0.500 H Neutrophils % 75.5 Lymphocytes % 12.0 L Monocytes % 10.5 Eosinophils % 1.2 Basophils % 0.3 Nucleated Red Blood Cells % 0.0 Immature Granulocytes # 0.060 H Neutrophils # 9.9 H Lymphocytes # 1.6 Monocytes # 1.4 H Eosinophils # 0.2 Basophils # 0.0 Nucleated Red Blood Cells # 0.0 Sodium Level 139 Potassium Level 4.8 Chloride Level 101 Carbon Dioxide Level 33 H Anion Gap 5 Blood Urea Nitrogen 16 Creatinine 0.78 Est Glomerular Filtrat Rate mL/min > 60 Glucose Level 117 Calcium Level 9.0 Phosphorus Level 3.7 Magnesium Level 2.3 Subjective 24 Hr Interval Summary Free Text/Dictation Patient denies any acute issues and no overnight events. Exam/Review of Systems Exam Vitals Vital Signs Date Temp Pulse Resp B/P (MAP) Pulse Ox O2 O2 Flow FiO2 Time Delivery Rate 07/01/18 95 08:59 07/01/18 99.3 18 116/72 92 07:57 (87) 06/30/18 Nasal 3.0 07:30 Cannula Intake and Output 06/30/18 06/30/18 07/01/18 1515:00 23:00 07:00 IntakeIntake Total 830 ml BalanceBalance 830 ml Exam General: Patient is laying in bed and answers questions appropriately Neck: Supple, nontender, midline Respiratory: Diminished, no wheezing appreciated Cardiovascular: regular rate and rhythm, murmur heard Gastrointestinal: soft, non-tender to palpation, bowel sounds heard. Neurological: Moves all extremities spontaneously Skin: No new skin lesions Results Results 24hrs Laboratory Tests Test 07/01/18 05:57 White Blood Count 13.1 H Red Blood Count 4.89 Hemoglobin 14.2 Hematocrit 41.7 L Mean Corpuscular Volume 85.3 Mean Corpuscular Hemoglobin 29.0 Mean Corpuscular Hemoglobin Concent 34.1 Red Cell Distribution Width 12.5 Platelet Count 396 Mean Platelet Volume 8.7 Immature Granulocytes % 0.500 H Neutrophils % 75.5 Lymphocytes % 12.0 L Monocytes % 10.5 Eosinophils % 1.2 Basophils % 0.3 Nucleated Red Blood Cells % 0.0 Immature Granulocytes # 0.060 H Neutrophils # 9.9 H Lymphocytes # 1.6 Monocytes # 1.4 H Eosinophils # 0.2 Basophils # 0.0 Nucleated Red Blood Cells # 0.0 Sodium Level 139 Potassium Level 4.8 Chloride Level 101 Carbon Dioxide Level 33 H Anion Gap 5 Blood Urea Nitrogen 16 Creatinine 0.78 Est Glomerular Filtrat Rate mL/min > 60 Glucose Level 117 Calcium Level 9.0 Phosphorus Level 3.7 Magnesium Level 2.3 Medications Medication Current Medications IV Flush (NS 3 ml) 3 ml PER PROTOCOL IV ; Start 06/20/18 at 20:30 Ondansetron HCl (Zofran Tab) 4 mg Q6H PRN PO NAUSEA/VOMITING; Start 06/20/18 at 20:30 Docusate Sodium (Colace) 100 mg Q12H PRN PO .CONSTIPATION Last administered on 06/22/18at 08:48; Admin Dose 100 MG; Start 06/20/18 at 20:30 Bisacodyl (Dulcolax) 5 mg DAILY PRN PO .CONSTIPATION Last administered on 06/24/18 08:46; Admin Dose 5 MG; Start 06/20/18 at 20:30 Enalaprilat (Vasotec Iv) 0.625 mg Q4H PRN IV ELEVATED BLOOD PRESSURE; Start 06/20/18 at 20:30 Albuterol/ Ipratropium (Duoneb) 3 ml Q4H RESP THERAPY PRN HHN SHORTNESS OF BREATH; Start 06/20/18 at 20:30 Polyethylene Glycol (Miralax) 17 gm DAILY PRN PO CONSTIPATION Last administered on 06/24/18 08:46; Admin Dose 17 GM; Start 06/23/18 at 09:00 Benzonatate (Tessalon) 100 mg TID PRN PO cough Last administered on 06/27/18 22:16; Admin Dose 100 MG; Start 06/26/18 at 11:30 Cefazolin Sodium/ Dextrose 50 ml @ 100 mls/hr Q8 IVPB Last administered on 07/01/18 05:14; Admin Dose 100 MLS/HR; Start 06/29/18 at 12:30 Hydromorphone HCl (Dilaudid) 0.5 mg Q6H PRN IV PAIN LEVEL 6-10; Start 06/29/18 at 11:30 Oxycodone/ Acetaminophen (Percocet (5/ 325)) 1 tab Q6H PRN PO PAIN LEVEL 6-10 Last administered on 06/30/18 21:14; Admin Dose 1 TAB; Start 06/29/18 at 11:30 Acetaminophen (Tylenol Tab) 650 mg Q6H PRN PO MILD PAIN(1-3)OR ELEVATED TEMP Last administered on 07/01/18at 10:41; Admin Dose 650 MG; Start 06/29/18 at 11:30 Ondansetron HCl (Zofran Inj) 4 mg Q6H PRN IV NAUSEA AND/OR VOMITING; Start 06/29/18 at 11:30 Enoxaparin Sodium (Lovenox) 40 mg DAILY@07 SC Last administered on 07/01/18 07:48; Admin Dose 40 MG; Start 06/30/18 at 07:00 SHASHI SHIPLEY MD Jul 01, 2018 10:54
[2018-07-01] MEDS: OXYCODONE/ACETAMINOPHEN (5/325) TAB PO PRN (19:12)
[2018-07-02] VITALS (9 sets, daily range): BP systolic 101–116; BP diastolic 66–77; PULSE 58–89; RESP 18–20
[2018-07-02] MEDS: ACETAMINOPHEN 325 MG TAB PO PRN (07:48)
[2018-07-02] MEDS: ENOXAPARIN 40 MG/0.4 ML SYG SC SCH (07:52)
--- NOTE | 2018-07-02 10:53 | PN ---
Date/Time of Note Date/Time of Note DATE: 07/02/18 TIME: 10:50 Assessment/Plan VTE Prophylaxis Risk score (from Ns)>0 risk: 3 SCD applied (from Ns): No SCD contraindicated: low risk/ambulating Pharmacological prophylaxis: NA/contraindicated Pharm contraindication: low risk/ambulating Lines/Catheters [facility] Saline Lock Urinary Cath still in place: No Assessment/Plan Assessment/Plan 1. Left sided pleural effusion s/p VATS with pleural biopsy on June 29, 2018 - Continue post op care. Tegaderm appears to be irritating skin as blisters have formed. Will have wound care take a look at area for recommendations - Discussed with son once bx results return, will be able to determine further plan of care - Repeat CT scan shows minimal pleural effusion and changes consistent with carcinomatosis - Pulm on board and appreciate recommendations. - MRI, CT A/P negative for any signs of metastasis - Pleural fluid cytology negative, cx negative to date - Oncology recommendations appreciated. - CEA, CA 19, and CA125 within normal limits 2. h/o lung nodule in 2011 - patient did not follow up on lung nodule findings 3. Disposition - Await pleural biopsy results Result Diagram: 07/01/18 0557 07/01/18 0557 Subjective 24 Hr Interval Summary Free Text/Dictation Patient experiencing cough with some sputum. Has blisters around dressing site on right chest wall. No infection appreciated. Exam/Review of Systems Exam Vitals Vital Signs Date Temp Pulse Resp B/P (MAP) Pulse Ox O2 O2 Flow FiO2 Time Delivery Rate 07/02/18 Nasal 3.0 07:45 Cannula 07/02/18 97.2 18 101/66 93 04:38 (78) 07/02/18 80 04:00 Intake and Output 07/01/18 07/01/18 07/02/18 1515:00 23:00 07:00 IntakeIntake Total 1050 ml 200 ml BalanceBalance 1050 ml 200 ml Exam General: Patient is laying in bed and answers questions appropriately Neck: Supple, nontender, midline Chest: dressing in place, small fluid filled blisters appreciated around edge of Tegaderm Respiratory: Diminished, no wheezing appreciated Cardiovascular: regular rate and rhythm, murmur heard Gastrointestinal: soft, non-tender to palpation, bowel sounds heard. Neurological: Moves all extremities spontaneously Skin: No new skin lesions Medications Medication Current Medications IV Flush (NS 3 ml) 3 ml PER PROTOCOL IV ; Start 06/20/18 at 20:30 Ondansetron HCl (Zofran Tab) 4 mg Q6H PRN PO NAUSEA/VOMITING; Start 06/20/18 at 20:30 Docusate Sodium (Colace) 100 mg Q12H PRN PO .CONSTIPATION Last administered on 06/22/18 08:48; Admin Dose 100 MG; Start 06/20/18 at 20:30 Bisacodyl (Dulcolax) 5 mg DAILY PRN PO .CONSTIPATION Last administered on 06/24/18 08:46; Admin Dose 5 MG; Start 06/20/18 at 20:30 Enalaprilat (Vasotec Iv) 0.625 mg Q4H PRN IV ELEVATED BLOOD PRESSURE; Start 06/20/18 at 20:30 Albuterol/ Ipratropium (Duoneb) 3 ml Q4H RESP THERAPY PRN HHN SHORTNESS OF BREATH; Start 06/20/18 at 20:30 Polyethylene Glycol (Miralax) 17 gm DAILY PRN PO CONSTIPATION Last administered on 06/24/18 08:46; Admin Dose 17 GM; Start 06/23/18 at 09:00 Benzonatate (Tessalon) 100 mg TID PRN PO cough Last administered on 06/27/18 22:16; Admin Dose 100 MG; Start 06/26/18 at 11:30 Hydromorphone HCl (Dilaudid) 0.5 mg Q6H PRN IV PAIN LEVEL 6-10; Start 06/29/18 at 11:30 Oxycodone/ Acetaminophen (Percocet (5/ 325)) 1 tab Q6H PRN PO PAIN LEVEL 6-10 Last administered on 07/01/18 19:12; Admin Dose 1 TAB; Start 06/29/18 at 11:30 Acetaminophen (Tylenol Tab) 650 mg Q6H PRN PO MILD PAIN(1-3)OR ELEVATED TEMP Last administered on 07/02/18 07:48; Admin Dose 650 MG; Start 06/29/18 at 11:30 Ondansetron HCl (Zofran Inj) 4 mg Q6H PRN IV NAUSEA AND/OR VOMITING; Start 06/29/18 at 11:30 Enoxaparin Sodium (Lovenox) 40 mg DAILY@07 SC Last administered on 07/02/18at 07:52; Admin Dose 40 MG; Start 06/30/18 at 07:00 SHASHI SHIPLEY MD Jul 02, 2018 10:53
--- NOTE | 2018-07-02 13:42 | CONS ---
Assessment/Plan Assessment/Plan Hospital Course (Demo Recall) t 53 yo with large pleural effusion and nodularity concerning for malignancy -no liver mets -s/p thoracentesis, cytology negative for malignancy. needs pleural biopsy. CT surgery consulted, ?mesothelioma -s/p pleurex - MRI brain done to rule out brain mets--NEGATIVE - s/p VATS tomorrow, path pending. Intraoperatively pt was noted to have multiple studding of his pleura and his lungs with a loculated pleural effusion. Consultation Date/Type/Reason Admit Date/Time Jun 20, 2018 at 19:35 Initial Consult Date 06/26/18 Type of Consult oncology Reason for Consultation pleural effusion Requesting Provider: AMIRA SAMPSON MD, [facility] Date/Time of Note DATE: 07/02/18 TIME: 13:40 24 HR Interval Summary Free Text/Dictation no acute overnight events Exam/Review of Systems Exam Vitals Vital Signs Date Temp Pulse Resp B/P (MAP) Pulse Ox O2 O2 Flow FiO2 Time Delivery Rate 07/02/18 98.5 71 18 115/77 94 Room Air 11:41 (90) 07/02/18 3.0 07:45 Intake and Output 07/01/18 07/01/18 07/02/18 1414:59 22:59 06:59 IntakeIntake Total 1050 ml 200 ml BalanceBalance 1050 ml 200 ml Constitutional: alert, oriented Psych: no complaints Head: normocephalic Eyes: nl conjunctiva ENMT: nl external ears & nose Neck: supple Respiratory: diminished breath sounds Cardiovascular: regular rate and rhythm Gastrointestinal: soft Musculoskeletal: nl extremities to inspection Extremities: normal pulses Results Result Diagram: 07/01/18 0557 07/01/18 0557 Medications Medication Current Medications IV Flush (NS 3 ml) 3 ml PER PROTOCOL IV ; Start 06/20/18 at 20:30 Ondansetron HCl (Zofran Tab) 4 mg Q6H PRN PO NAUSEA/VOMITING; Start 06/20/18 at 20:30 Docusate Sodium (Colace) 100 mg Q12H PRN PO .CONSTIPATION Last administered on 06/22/18at 08:48; Admin Dose 100 MG; Start 06/20/18 at 20:30 Bisacodyl (Dulcolax) 5 mg DAILY PRN PO .CONSTIPATION Last administered on 06/24/18 08:46; Admin Dose 5 MG; Start 06/20/18 at 20:30 Enalaprilat (Vasotec Iv) 0.625 mg Q4H PRN IV ELEVATED BLOOD PRESSURE; Start 06/20/18 at 20:30 Albuterol/ Ipratropium (Duoneb) 3 ml Q4H RESP THERAPY PRN HHN SHORTNESS OF BREATH; Start 06/20/18 at 20:30 Polyethylene Glycol (Miralax) 17 gm DAILY PRN PO CONSTIPATION Last administered on 06/24/18 08:46; Admin Dose 17 GM; Start 06/23/18 at 09:00 Benzonatate (Tessalon) 100 mg TID PRN PO cough Last administered on 06/27/18 22:16; Admin Dose 100 MG; Start 06/26/18 at 11:30 Hydromorphone HCl (Dilaudid) 0.5 mg Q6H PRN IV PAIN LEVEL 6-10; Start 06/29/18 at 11:30 Oxycodone/ Acetaminophen (Percocet (5/ 325)) 1 tab Q6H PRN PO PAIN LEVEL 6-10 Last administered on 07/01/18 19:12; Admin Dose 1 TAB; Start 06/29/18 at 11:30 Acetaminophen (Tylenol Tab) 650 mg Q6H PRN PO MILD PAIN(1-3)OR ELEVATED TEMP Last administered on 07/02/18 07:48; Admin Dose 650 MG; Start 06/29/18 at 11:30 Ondansetron HCl (Zofran Inj) 4 mg Q6H PRN IV NAUSEA AND/OR VOMITING; Start 06/29/18 at 11:30 Enoxaparin Sodium (Lovenox) 40 mg DAILY@07 SC Last administered on 07/02/18 07:52; Admin Dose 40 MG; Start 06/30/18 at 07:00 Neomycin/ Polymyxin/ Bacitracin (Neosporin Topical Oint) 1 applic DAILY TOP ; Start 07/02/18 at 13:00 PATTI VALENZUELA M.D. Jul 02, 2018 13:42
[2018-07-02] MEDS: NEOMYC/POLYMYX/BACIT 30 GM OINT TOP SCH (16:31)
[2018-07-02] MEDS: OXYCODONE/ACETAMINOPHEN (5/325) TAB PO PRN (16:33)
[2018-07-03] VITALS (8 sets, daily range): BP systolic 108–125; BP diastolic 68–81; PULSE 74–93; RESP 16–20
[2018-07-03] MEDS: ENOXAPARIN 40 MG/0.4 ML SYG SC SCH (06:31)
[2018-07-03] MEDS: NEOMYC/POLYMYX/BACIT 30 GM OINT TOP SCH (07:57)
--- NOTE | 2018-07-03 12:36 | PN ---
Date/Time of Note Date/Time of Note DATE: 07/03/18 TIME: 12:36 Assessment/Plan VTE Prophylaxis Risk score (from Ns)>0 risk: 6 SCD applied (from Ns): Yes Pharmacological prophylaxis: NA/contraindicated Pharm contraindication: low risk/ambulating Lines/Catheters [facility] (from [facility] Saline Lock Urinary Cath still in place: No Assessment/Plan Assessment/Plan 1. Left sided pleural effusion s/p VATS with pleural biopsy on June 29, 2018 - biopsy results noted for mesothelioma. Discussed with son who would like to tell his father when the whole family is around. Discussed with Oncology who would like mediport placed prior to d/c and will arrange for outpatient chemo - Repeat CT scan shows minimal pleural effusion and changes consistent with carcinomatosis - Pulm on board and appreciate recommendations. - MRI, CT A/P negative for any signs of metastasis - Pleural fluid cytology negative, cx negative to date - Oncology recommendations appreciated. - CEA, CA 19, and CA125 within normal limits 2. h/o lung nodule in 2011 - patient did not follow up on lung nodule findings 3. Disposition - NPO after midnight for mediport placement tomorrow. If remains stable, will d/c after placement Result Diagram: 07/01/18 0557 07/01/18 0557 Subjective 24 Hr Interval Summary Free Text/Dictation Patient still with cough but denies any new issues. No acute overnight events. Exam/Review of Systems Exam Vitals Vital Signs Date Temp Pulse Resp B/P (MAP) Pulse Ox O2 O2 Flow FiO2 Time Delivery Rate 07/03/18 99.8 91 20 125/74 96 Room Air 11:30 (91) 07/02/18 2.0 19:48 Intake and Output 07/02/18 07/02/18 07/03/18 1515:00 23:00 07:00 IntakeIntake Total 700 ml 800 ml 400 ml BalanceBalance 700 ml 800 ml 400 ml Exam General: Patient is laying in bed and answers questions appropriately Neck: Supple, nontender, midline Chest: dressing in place, blisters appreciated without discharge or drainage. noninfectious Respiratory: Diminished, no wheezing appreciated Cardiovascular: regular rate and rhythm, murmur heard Gastrointestinal: soft, non-tender to palpation, bowel sounds heard. Neurological: Moves all extremities spontaneously Skin: No new skin lesions Medications Medication Current Medications IV Flush (NS 3 ml) 3 ml PER PROTOCOL IV ; Start 06/20/18 at 20:30 Ondansetron HCl (Zofran Tab) 4 mg Q6H PRN PO NAUSEA/VOMITING; Start 06/20/18 at 20:30 Docusate Sodium (Colace) 100 mg Q12H PRN PO .CONSTIPATION Last administered on 06/22/18 08:48; Admin Dose 100 MG; Start 06/20/18 at 20:30 Bisacodyl (Dulcolax) 5 mg DAILY PRN PO .CONSTIPATION Last administered on 06/24/18 08:46; Admin Dose 5 MG; Start 06/20/18 at 20:30 Enalaprilat (Vasotec Iv) 0.625 mg Q4H PRN IV ELEVATED BLOOD PRESSURE; Start at 20:30 Albuterol/ Ipratropium (Duoneb) 3 ml Q4H RESP THERAPY PRN HHN SHORTNESS OF BREATH; Start 06/20/18 at 20:30 Polyethylene Glycol (Miralax) 17 gm DAILY PRN PO CONSTIPATION Last administered on 06/24/18 08:46; Admin Dose 17 GM; Start 06/23/18 at 09:00 Benzonatate (Tessalon) 100 mg TID PRN PO cough Last administered on 06/27/18 22:16; Admin Dose 100 MG; Start 06/26/18 at 11:30 Hydromorphone HCl (Dilaudid) 0.5 mg Q6H PRN IV PAIN LEVEL 6-10; Start 06/29/18 at 11:30 Oxycodone/ Acetaminophen (Percocet (5/ 325)) 1 tab Q6H PRN PO PAIN LEVEL 6-10 Last administered on 07/02/18 16:33; Admin Dose 1 TAB; Start 06/29/18 at 11:30 Acetaminophen (Tylenol Tab) 650 mg Q6H PRN PO MILD PAIN(1-3)OR ELEVATED TEMP Last administered on 07/02/18 07:48; Admin Dose 650 MG; Start 06/29/18 at 11:30 Ondansetron HCl (Zofran Inj) 4 mg Q6H PRN IV NAUSEA AND/OR VOMITING; Start 06/29/18 at 11:30 Enoxaparin Sodium (Lovenox) 40 mg DAILY@07 SC Last administered on 07/03/18at 06:31; Admin Dose 40 MG; Start 06/30/18 at 07:00 Neomycin/ Polymyxin/ Bacitracin (Neosporin Topical Oint) 1 applic DAILY TOP L ast administered on 07/03/18at 07:57; Admin Dose 1 APPLIC; Start 07/02/18 at 13:00 SHASHI SHIPLEY MD July 03, 2018 12:36
--- NOTE | 2018-07-03 15:50 | CONS ---
Assessment/Plan Assessment/Plan Hospital Course (Demo Recall) pleasant 53 yo with large pleural effusion and nodularity concerning for malignancy -no liver mets -s/p thoracentesis, cytology negative for malignancy. s/p VATS -s/p pleurex - MRI brain done to rule out brain mets--NEGATIVE discussed with son at bedside given intraop findings, and final path. discussed with family that systemic chemo would be given as outpt. I have placed order for this and will await auth, will recommend carbo and alimta q 3 weeks will take about 10 days to get auth and delivery of chemo drugs our new patient liaison will call pt to schedule appt Consultation Date/Type/Reason Admit Date/Time Jun 20, 2018 at 19:35 Initial Consult Date Requesting Provider: AMIRA SAMPSON MD, [facility] [place] Date/Time of Note DATE: 07/03/18 TIME: 15:48 24 HR Interval Summary Free Text/Dictation path back as mesothelioma pt aware Exam/Review of Systems Exam Vitals Vital Signs Date Temp Pulse Resp B/P (MAP) Pulse Ox O2 O2 Flow FiO2 Time Delivery Rate 07/03/18 93 13:20 07/03/18 99.8 20 125/74 96 Room Air 11:30 (91) 07/02/18 2.0 19:48 Intake and Output 07/02/18 07/02/18 07/03/18 1515:00 23:00 07:00 IntakeIntake Total 700 ml 800 ml 400 ml BalanceBalance 700 ml 800 ml 400 ml Results Result Diagram: 07/01/18 0557 07/01/18 0557 Results 24hrs Laboratory Tests Test 07/03/18 14:29 Prothrombin Time 14.1 Prothrombin Time Ratio 1.1 INR International Normalized Ratio 1.08 Medications Medication Current Medications IV Flush (NS 3 ml) 3 ml PER PROTOCOL IV ; Start 06/20/18 at 20:30 Ondansetron HCl (Zofran Tab) 4 mg Q6H PRN PO NAUSEA/VOMITING; Start 06/20/18 at 20:30 Docusate Sodium (Colace) 100 mg Q12H PRN PO .CONSTIPATION Last administered on 06/22/18at 08:48; Admin Dose 100 MG; Start 06/20/18 at 20:30 Bisacodyl (Dulcolax) 5 mg DAILY PRN PO .CONSTIPATION Last administered on 06/24/18 08:46; Admin Dose 5 MG; Start 06/20/18 at 20:30 Enalaprilat (Vasotec Iv) 0.625 mg Q4H PRN IV ELEVATED BLOOD PRESSURE; Start 06/20/18 at 20:30 Albuterol/ Ipratropium (Duoneb) 3 ml Q4H RESP THERAPY PRN HHN SHORTNESS OF BREATH; Start 06/20/18 at 20:30 Polyethylene Glycol (Miralax) 17 gm DAILY PRN PO CONSTIPATION Last administered on 06/24/18 08:46; Admin Dose 17 GM; Start 06/23/18 at 09:00 Benzonatate (Tessalon) 100 mg TID PRN PO cough Last administered on 06/27/18 22:16; Admin Dose 100 MG; Start 06/26/18 at 11:30 Hydromorphone HCl (Dilaudid) 0.5 mg Q6H PRN IV PAIN LEVEL 6-10; Start 06/29/18 at 11:30 Oxycodone/ Acetaminophen (Percocet (5/ 325)) 1 tab Q6H PRN PO PAIN LEVEL 6-10 Last administered on 07/02/18 16:33; Admin Dose 1 TAB; Start 06/29/18 at 11:30 Acetaminophen (Tylenol Tab) 650 mg Q6H PRN PO MILD PAIN(1-3)OR ELEVATED TEMP Last administered on 07/02/18 07:48; Admin Dose 650 MG; Start 06/29/18 at 11:30 Ondansetron HCl (Zofran Inj) 4 mg Q6H PRN IV NAUSEA AND/OR VOMITING; Start 06/29/18 at 11:30 Enoxaparin Sodium (Lovenox) 40 mg DAILY@07 SC Last administered on 07/03/18 06:31; Admin Dose 40 MG; Start 06/30/18 at 07:00 Neomycin/ Polymyxin/ Bacitracin (Neosporin Topical Oint) 1 applic DAILY TOP Last administered on 07/03/18 07:57; Admin Dose 1 APPLIC; Start 07/02/18 at 13:00 JERRICA LUNDBERG July 03, 2018 15:50
[2018-07-03] MEDS: ACETAMINOPHEN 325 MG TAB PO PRN (21:29)
[2018-07-04 02:10] VITALS: BP 108/78; PULSE 69; RESP 18
[2018-07-04] MEDS: ENOXAPARIN 40 MG/0.4 ML SYG SC SCH (03:33)
[2018-07-04 07:55] VITALS: BP 112/75; PULSE 82; RESP 18
[2018-07-04] MEDS ORDERED: CEFAZOLIN 1 GM/50 ML (PMX) 0 ML IVPB ONE (08:38)
[2018-07-04] MEDS ORDERED: LIDOCAINE 1%/EPI (1:100,000) (MDV) 20 ML ONE (08:39)
[2018-07-04] MEDS ORDERED: FENTAnyl 50 MCG/ML VIAL ONE (08:39)
[2018-07-04] MEDS ORDERED: HEPARIN 1000 UNITS/ML 10 ML INJ ONE (08:39)
[2018-07-04] MEDS ORDERED: MIDAZOLAM 1 MG/ML 2 ML INJ ONE (08:39)
[2018-07-04] MEDS ORDERED: SOD CHLORIDE 0.9% 500 ML ONE (08:39)
[2018-07-04] MEDS ORDERED: CEFAZOLIN 1 GM/50 ML (PMX) 50 ML IVPB ONE (09:00)
[2018-07-04] MEDS ORDERED: POLYMYXIN/BACITRACIN 1L IRRIG IRR ONE (09:00)
[2018-07-04] MEDS: NEOMYC/POLYMYX/BACIT 30 GM OINT TOP SCH (09:58)
--- NOTE | 2018-07-04 11:43 | HPN ---
Date/Time of Note Date/Time of Note DATE: 07/04/18 TIME: 11:43 Interval H&P Admission Note Pt. seen H&P reviewed: No system changes SUZANNE ESPINOZA MD July 04, 2018 11:43
--- NOTE | 2018-07-04 13:05 | PN ---
Date/Time of Note Date/Time of Note DATE: 07/04/18 TIME: 13:03 Assessment/Plan VTE Prophylaxis Risk score (from Ns)>0 risk: 5 SCD applied (from Ns): Yes Pharmacological prophylaxis: NA/contraindicated Pharm contraindication: low risk/ambulating, surgical contra Lines/Catheters IV [facility] (from [facility] Saline Lock Urinary Cath still in place: No Assessment/Plan Assessment/Plan 1. Left sided pleural effusion s/p VATS with pleural biopsy on June 29, 2018 - biopsy results noted for mesothelioma. portacath placed and will follow up with Oncology as outpatient - Pulm on board and appreciate recommendations. - MRI, CT A/P negative for any signs of metastasis - Pleural fluid cytology negative, cx negative to date - Oncology recommendations appreciated. - CEA, CA 19, and CA125 within normal limits 2. h/o lung nodule in 2011 - patient did not follow up on lung nodule findings 3. Disposition - Medically stable for discharge home Result Diagram: 07/04/18 0433 07/01/18 0557 Results 24hrs Laboratory Tests Test 07/03/18 14:29 07/04/18 04:33 Prothrombin Time 14.1 Prothrombin Time Ratio 1.1 INR International Normalized Ratio 1.08 White Blood Count 11.1 H Red Blood Count 4.74 Hemoglobin 13.5 L Hematocrit 40.2 L Mean Corpuscular Volume 84.8 Mean Corpuscular Hemoglobin 28.5 L Mean Corpuscular Hemoglobin Concent 33.6 Red Cell Distribution Width 12.4 Platelet Count 463 H Mean Platelet Volume 8.6 Immature Granulocytes % 0.500 H Neutrophils % 68.0 Lymphocytes % 17.8 Monocytes % 9.8 Eosinophils % 3.5 Basophils % 0.4 Nucleated Red Blood Cells % 0.0 Immature Granulocytes # 0.050 H Neutrophils # 7.6 H Lymphocytes # 2.0 Monocytes # 1.1 H Eosinophils # 0.4 Basophils # 0.0 Nucleated Red Blood Cells # 0.0 Subjective 24 Hr Interval Summary Free Text/Dictation Patient is doing well following mediport placement and in no acute distress. Requesting to go home. Exam/Review of Systems Exam Vitals Vital Signs Date Temp Pulse Resp B/P (MAP) Pulse Ox O2 O2 Flow FiO2 Time Delivery Rate 07/04/18 98.1 82 18 112/75 95 07:55 (87) 07/03/18 Room Air 16:41 07/02/18 2.0 19:48 Intake and Output 07/03/18 07/03/18 07/04/18 1414:59 22:59 06:59 IntakeIntake Total 1800 ml BalanceBalance 1800 ml Exam General: Patient is laying in bed and answers questions appropriately Neck: Supple, nontender, midline Chest: dressing in place, no drainage. dressing over portacath in place as well Respiratory: Diminished, no wheezing appreciated Cardiovascular: regular rate and rhythm, murmur heard Gastrointestinal: soft, non-tender to palpation, bowel sounds heard. Neurological: Moves all extremities spontaneously Skin: No new skin lesions Results Results 24hrs Laboratory Tests Test 07/03/18 14:29 07/04/18 04:33 Prothrombin Time 14.1 Prothrombin Time Ratio 1.1 INR International Normalized Ratio 1.08 White Blood Count 11.1 H Red Blood Count 4.74 Hemoglobin 13.5 L Hematocrit 40.2 L Mean Corpuscular Volume 84.8 Mean Corpuscular Hemoglobin 28.5 L Mean Corpuscular Hemoglobin Concent 33.6 Red Cell Distribution Width 12.4 Platelet Count 463 H Mean Platelet Volume 8.6 Immature Granulocytes % 0.500 H Neutrophils % 68.0 Lymphocytes % 17.8 Monocytes % 9.8 Eosinophils % 3.5 Basophils % 0.4 Nucleated Red Blood Cells % 0.0 Immature Granulocytes # 0.050 H Neutrophils # 7.6 H Lymphocytes # 2.0 Monocytes # 1.1 H Eosinophils # 0.4 Basophils # 0.0 Nucleated Red Blood Cells # 0.0 Medications Medication Current Medications IV Flush (NS 3 ml) 3 ml PER PROTOCOL IV ; Start 06/20/18 at 20:30 Ondansetron HCl (Zofran Tab) 4 mg Q6H PRN PO NAUSEA/VOMITING; Start 06/20/18 at 20:30 Docusate Sodium (Colace) 100 mg Q12H PRN PO .CONSTIPATION Last administered on 06/22/18at 08:48; Admin Dose 100 MG; Start 06/20/18 at 20:30 Bisacodyl (Dulcolax) 5 mg DAILY PRN PO .CONSTIPATION Last administered on 06/24/18at 08:46; Admin Dose 5 MG; Start 06/20/18 at 20:30 Enalaprilat (Vasotec Iv) 0.625 mg Q4H PRN IV ELEVATED BLOOD PRESSURE; Start 06/20/18 at 20:30 Albuterol/ Ipratropium (Duoneb) 3 ml Q4H RESP THERAPY PRN HHN SHORTNESS OF BREATH; Start 06/20/18 at 20:30 Polyethylene Glycol (Miralax) 17 gm DAILY PRN PO CONSTIPATION Last administered on 06/24/18at 08:46; Admin Dose 17 GM; Start 06/23/18 at 09:00 Benzonatate (Tessalon) 100 mg TID PRN PO cough Last administered on 06/27/18 22:16; Admin Dose 100 MG; Start 06/26/18 at 11:30 Hydromorphone HCl (Dilaudid) 0.5 mg Q6H PRN IV PAIN LEVEL 6-10; Start 06/29/18 at 11:30 Oxycodone/ Acetaminophen (Percocet (5/ 325)) 1 tab Q6H PRN PO PAIN LEVEL 6-10 Last administered on 07/02/18 16:33; Admin Dose 1 TAB; Start 06/29/18 at 11:30 Acetaminophen (Tylenol Tab) 650 mg Q6H PRN PO MILD PAIN(1-3)OR ELEVATED TEMP Last administered on 07/03/18 21:29; Admin Dose 650 MG; Start 06/29/18 at 11:30 Ondansetron HCl (Zofran Inj) 4 mg Q6H PRN IV NAUSEA AND/OR VOMITING; Start 06/29/18 at 11:30 Enoxaparin Sodium (Lovenox) 40 mg DAILY@07 SC Last administered on 07/03/18at 06:31; Admin Dose 40 MG; Start 06/30/18 at 07:00 Neomycin/ Polymyxin/ Bacitracin (Neosporin Topical Oint) 1 applic DAILY TOP Last administered on 07/04/18 09:58; Admin Dose 1 APPLIC; Start 07/02/18 at 13:00 SHASHI SHIPLEY MD July 04, 2018 13:05
[2018-07-04] MEDS ORDERED: NEOM28OI2 TOP (13:06)
[2018-07-04] MEDS ORDERED: ACET325T33 PO (13:06)
--- NOTE | 2018-07-04 13:10 | PDOCDIS ---
Discharge Instructions DIAGNOSIS Discharge Diagnosis 1. Left sided pleural effusion s/p VATS with pleural biopsy on June 29, 2018 2. Mesothelioma L lung 3. h/o lung nodule in 2012 CONDITION [id number] Patient Condition: [id number] Stable HOME CARE INSTRUCTIONS: [id number] Diet Instructions: [id number] Regular ACTIVITY: [id number] Activity Restrictions: [id number] Slowly Increase Activity Rest between Activity Avoid heavy lifting Do not operate Machinery Do not operate Power Tool Avoid Heavy Housework FOLLOW UP/APPOINTMENTS Follow-up Plan 1. Follow up with your primary care physician in 1-2 weeks 2. Follow up with Dr. Carmona as scheduled 3. Continue to keep blistered areas clean and dry, and apply Neosporin to the area to help with healing. 4. If experiencing any concerning symptoms, please go to your nearest emergency department 1. seguimiento con alonso mdico de atencin primaria en 1-2 semanas 2. Siga con el Dr. Carmona segn lo programado 3. contine para mantener las reas en ampollas limpias y secas, y aplique Neosporin en el darrin para ayudar con la curacin. 4. Si experimenta algn sntoma relacionado, por favor vaya a alonso Departamento de emergencias SHASHI Morris MD July 04, 2018 13:10
[2018-07-04 14:00] VITALS: BP 99/68; PULSE 70; RESP 18
--- NOTE | 2018-07-04 15:19 | CONS ---
Assessment/Plan Assessment/Plan Hospital Course (Demo Recall) pleasant 53 yo with large pleural effusion and nodularity concerning for malignancy -no liver mets -s/p thoracentesis, cytology negative for malignancy. s/p VATS -s/p pleurex - MRI brain done to rule out brain mets--NEGATIVE -prelim path consistent with mesothelioma. primary oncologist, Dr. Carmona to start carbo and alimta q 3 weeks as an out patient will take about 10 days to get auth and delivery of chemo drugs our new patient liaison will call pt to schedule appt Consultation Date/Type/Reason Admit Date/Time Jun 20, 2018 at 19:35 Initial Consult Date 06/26/18 Type of Consult oncology Reason for Consultation mesothelioma Requesting Provider: AMIRA SAMPSON MD, [facility] Date/Time of Note DATE: 07/04/18 TIME: 15:17 24 HR Interval Summary Free Text/Dictation no acute overnight events Exam/Review of Systems Exam Vitals Vital Signs Date Temp Pulse Resp B/P (MAP) Pulse Ox O2 O2 Flow FiO2 Time Delivery Rate 07/04/18 98.3 70 18 99/68 (78) 93 14:00 07/03/18 Room Air 16:41 07/02/18 2.0 19:48 Intake and Output 07/03/18 07/03/18 07/04/18 1515:00 23:00 07:00 IntakeIntake Total 1800 ml BalanceBalance 1800 ml Constitutional: alert Psych: no complaints Head: normocephalic Eyes: nl conjunctiva ENMT: nl external ears & nose Neck: supple Respiratory: diminished breath sounds Cardiovascular: regular rate and rhythm Gastrointestinal: soft Musculoskeletal: nl extremities to inspection Results Result Diagram: 07/04/18 0433 07/01/18 0557 Results 24hrs Laboratory Tests Test 07/04/18 04:33 White Blood Count 11.1 H Red Blood Count 4.74 Hemoglobin 13.5 L Hematocrit 40.2 L Mean Corpuscular Volume 84.8 Mean Corpuscular Hemoglobin 28.5 L Mean Corpuscular Hemoglobin Concent 33.6 Red Cell Distribution Width 12.4 Platelet Count 463 H Mean Platelet Volume 8.6 Immature Granulocytes % 0.500 H Neutrophils % 68.0 Lymphocytes % 17.8 Monocytes % 9.8 Eosinophils % 3.5 Basophils % 0.4 Nucleated Red Blood Cells % 0.0 Immature Granulocytes # 0.050 H Neutrophils # 7.6 H Lymphocytes # 2.0 Monocytes # 1.1 H Eosinophils # 0.4 Basophils # 0.0 Nucleated Red Blood Cells # 0.0 Medications Medication Current Medications IV Flush (NS 3 ml) 3 ml PER PROTOCOL IV ; Start 06/20/18 at 20:30 Ondansetron HCl (Zofran Tab) 4 mg Q6H PRN PO NAUSEA/VOMITING; Start 06/20/18 at 20:30 Docusate Sodium (Colace) 100 mg Q12H PRN PO .CONSTIPATION Last administered on 06/22/18 08:48; Admin Dose 100 MG; Start 06/20/18 at 20:30 Bisacodyl (Dulcolax) 5 mg DAILY PRN PO .CONSTIPATION Last administered on 06/24/18 08:46; Admin Dose 5 MG; Start 06/20/18 at 20:30 Enalaprilat (Vasotec Iv) 0.625 mg Q4H PRN IV ELEVATED BLOOD PRESSURE; Start 06/20/18 at 20:30 Albuterol/ Ipratropium (Duoneb) 3 ml Q4H RESP THERAPY PRN HHN SHORTNESS OF BREATH; Start 06/20/18 at 20:30 Polyethylene Glycol (Miralax) 17 gm DAILY PRN PO CONSTIPATION Last administered on 06/24/18 08:46; Admin Dose 17 GM; Start 06/23/18 at 09:00 Benzonatate (Tessalon) 100 mg TID PRN PO cough Last administered on 06/27/18 22:16; Admin Dose 100 MG; Start 06/26/18 at 11:30 Hydromorphone HCl (Dilaudid) 0.5 mg Q6H PRN IV PAIN LEVEL 6-10; Start 06/29/18 at 11:30 Oxycodone/ Acetaminophen (Percocet (5/ 325)) 1 tab Q6H PRN PO PAIN LEVEL 6-10 Last administered on 07/02/18 16:33; Admin Dose 1 TAB; Start 06/29/18 at 11:30 Acetaminophen (Tylenol Tab) 650 mg Q6H PRN PO MILD PAIN(1-3)OR ELEVATED TEMP Last administered on 07/03/18 21:29; Admin Dose 650 MG; Start 06/29/18 at 11:30 Ondansetron HCl (Zofran Inj) 4 mg Q6H PRN IV NAUSEA AND/OR VOMITING; Start 06/29/18 at 11:30 Enoxaparin Sodium (Lovenox) 40 mg DAILY@07 SC Last administered on 07/03/18at 06:31; Admin Dose 40 MG; Start 06/30/18 at 07:00 Neomycin/ Polymyxin/ Bacitracin (Neosporin Topical Oint) 1 applic DAILY TOP Last administered on 07/04/18at 09:58; Admin Dose 1 APPLIC; Start 07/02/18 at 13:00 PATTI VALENZUELA M.D. July 04, 2018 15:19
--- NOTE | 2018-07-04 17:16 | DS ---
Date/Time of Note Date/Time of Note DATE: 07/04/18 TIME: 17:14 Discharge Summary Admission/Discharge Info Admit Date/Time Jun 20, 2018 at 19:35 Discharge Date/Time July 04, 2018 at 16:30 Discharge Diagnosis 1. Left sided pleural effusion s/p VATS with pleural biopsy on June 29, 2018 2. Mesothelioma L lung 3. h/o lung nodule in 2011 Patient Condition: Stable Consults CT surgery- Dr. Parrish [facility] Procedures PROCEDURE: Ultrasound guided thoracentesis CLINICAL INDICATION: Pleural fluid TECHNIQUE: Multiple sonographic images were obtained through the patient's chest. A site in the patient's left lower chest was selected and marked. The area was prepped and draped in the usual sterile fashion. 1% lidocaine was utilized. A 19-gauge Red Butlereh needle was advanced into the pleural space and the introducer was connected to a vacuum drainage system. A total of 1900 cc of clear yellow fluid were drained at the end of the procedure. The patient tolerated the procedure well. The specimen was sent for laboratory evaluation. COMPARISON: None FINDINGS: Large left pleural effusion. IMPRESSION: Uncomplicated ultrasound-guided left thoracentesis. RPTAT: QQ Physician Cailin Date Time Electronically viewed and signed by Physician Cailin on 06/21/2018 09:38 PROCEDURE: FLUOROSCOPIC AND ULTRASONOGRAPHIC-GUIDED PLACEMENT OF RIGHT CHEST PORT. CLINICAL INDICATION: History of lung cancer. Venous access for chemotherapy. TECHNIQUE: Informed consent was obtained. The procedure, risks, benefits, complications and alternatives were explained to the patient. Risks including bleeding, infection, and pneumothorax were explained. The patient understood and was willing to proceed. A procedural pause was performed. The patient's name, date of , and procedure to be performed were verified. The central line was inserted with all elements of maximal sterile barrier technique. All of the following were used: head covering, facial mask, sterile gown, sterile gloves, a large sterile sheet, hand hygiene, and 2% chlorhexidine for cutaneous antisepsis. The right neck and anterior/superior chest wall were prepped and draped in usual sterile fashion. Limited sonography of the right neck was then performed. Noted is a patent right internal jugular vein. Following the local injection of 1% lidocaine, the right internal jugular vein was punctured under sonographic guidance with a 20-gauge needle through which a 0.018 inch floppy tip guidewire was advanced into the superior vena cava, then the right atrium with fluoroscopic guidance. The tract was dilated to 5 Frisian and the wire was then replaced with a 0.035 in guidewire. A site just inferior to the clavicle in the superior anterior right chest wall was localized. One percent lidocaine was used as local anesthesia. A transverse 2.5 cm incision was made utilizing a 15 blade scalpel. Utilizing blunt dissection a subcutaneous pocket was created inferior to the incision. The cavity was flushed with approximately 40 cc of PB antibiotic solution. The catheter was tunneled underneath the skin from the newly created pocket to the puncture site in the neck. The central line catheter was pulled through the tract. Serial dilatation was then performed and a 7 Frisian peel away sheath was introduced. The catheter was then advanced through the peel-away sheath until the tip was positioned in the right atrium. The peel-away sheath was removed. The catheter was flushed, clamped, and cut to the appropriate length. The 6.6 Frisian catheter was then connected to the Angi[employer] power port. The port was then placed into the pocket. Prior to closing the instrument and sponge count was verified and was correct. The subcutaneous tissue was closed with 3-0 Vicryl interrupted suture. The skin at the site of the pocket and in the neck was closed with 4-0 Vicryl suture in a running subcuticular technique. The port was flushed with 1500 units of heparin in 1.5 cc utilizing a Kilpatrick needle. The needle was removed. A dressing was applied. Specimens: None. Blood loss: 5 ml. Complications: None. Wet Chemistry Analyst: Jocelyne Hanley. Anesthesia: Local and moderate sedation. Graft/Implant: Right chest port. COMPARISON: None. FINDINGS: Ultrasound images were recorded and stored in the patient's medical record. Final radiographic images demonstrate the tip of the catheter in the upper right atrium. A total of 0.1 minutes of fluoroscopy time was used. 6 images of the chest were obtained with the image intensifier. The ultrasound images demonstrate the needle entering the internal jugular vein. IMPRESSION: 1. Successful ultrasonographic and fluoroscopic guided placement of right chest power port. RPTAT: QQ .Travon Gatica MD, Date Time Electronically viewed and signed by .Travon Gatica MD, MD on 07/04/2018 11:40 DATE OF OPERATION: 06/29/2018 PREOPERATIVE DIAGNOSIS: Recurrent left pleural effusion, rule out pulmonary carcinomatosis. POSTOPERATIVE DIAGNOSIS: Recurrent left pleural effusion, rule out pulmonary carcinomatosis. PROCEDURES: Right thoracoscopy, partial decortication, pleural biopsy, insertion of a PleurX catheter and also flexible bronchoscopy. SURGEON: Dina Parrish MD DIRECTOR [employer]LE RETAIL: DORIS Ragsdale Hx of Present Illness cc: sent from clinic abnormal chest xray. This is a 53-year-old male who presented from an outside clinic after have an abnormal chest x-ray. family members at the bedside. He does report that over the last month or so they have been noticing that he has had a cough. And when he is walking he has been noticeably more tired and having shortness of breath. Denies any recent fevers chills or nausea vomiting or diarrhea. Patient appjeanine murilloy was told that he had a lung nodule in 2011 however patient did not follow-up on this. His cough is nonproductive and he denies any hemoptysis. Denies any recent weight loss or chills or night sweats. Hx of smoking in the past. Hospital Course Patient was admitted for evaluation of large pleural effusion and Pulmonology was consulted as well for further recommendations. Patient underwent thoracentesis and repeat CXR showed no improvement in effusion. Chest tube was placed and fluid studies were sent with negative cytology findings. CT surgery was consulted for pleural biopsy and under went VATS procedure which he tolerated well. Oncology was consulted given high suspicion for malignancy. Pleural biopsy results revealed mesothelioma. Oncology recommended portacath placement prior to discharge which was placed. Patient remained stable and cleared for discharge by oncology and pulmonology. Patient was instructed to follow up with oncology and [facility] for CT surgery evaluation. Patient was discharged home in good condition. Home Meds Active Scripts Acetaminophen* (Tylenol*) 325 Mg Tablet, 650 MG PO Q6H PRN for MILD PAIN(1-3)OR ELEVATED TEMP for 30 Days, #120 TAB Prov:SHASHI SHIPLEY MD 07/04/18 Neomycin Green/Bacitrac Zn/Poly (Triple Antibiotic Ointment) 28 Gm Oint...g., 1 APPLIC TOP DAILY for 30 Days, #1 TUB Prov:SHASHI SHIPLEY MD 07/04/18 Follow-up Plan 1. Follow up with your primary care physician in 1-2 weeks 2. Follow up with Dr. Carmona as scheduled 3. Continue to keep blistered areas clean and dry, and apply Neosporin to the area to help with healing. 4. If experiencing any concerning symptoms, please go to your nearest emergency department 1. seguimiento con green mdico de atencin primaria en 1-2 semanas 2. Siga con el Dr. Carmona segn lo programado 3. contine para mantener las reas en ampollas limpias y secas, y aplique Neosporin en el darrin para ayudar con la curacin. 4. Si experimenta algn sntoma relacionado, por favor vaya a green Departamento de emergencias ms vincenzo Primary Care Provider Care Physician No Primary Time spent on discharge: > 30 minutes Pending Labs Laboratory Tests Test 07/04/18 04:33 White Blood Count 11.1 10^3/ul (4.8-10.8) Red Blood Count 4.74 10^6/ul (4.70-6.10) Hemoglobin 13.5 g/dl (14.0-18.0) Hematocrit 40.2 % (42.0-52.0) Mean Corpuscular Volume 84.8 fl (82.0-101.0) Mean Corpuscular Hemoglobin 28.5 pg (29.0-33.0) Mean Corpuscular Hemoglobin Concent 33.6 g/dl (32.0-37.0) Red Cell Distribution Width 12.4 % (11.5-14.5) Platelet Count 463 10^3/UL (140-415) Mean Platelet Volume 8.6 fl (7.4-10.4) Immature Granulocytes % 0.500 % (0.001-0.429) Neutrophils % 68.0 % (39.0-77.0) Lymphocytes % 17.8 % (15.0-51.0) Monocytes % 9.8 % (0.0-11.0) Eosinophils % 3.5 % (0.0-7.0) Basophils % 0.4 % (0.0-2.0) Nucleated Red Blood Cells % 0.0 /100WBC (0.0-0.0) Immature Granulocytes # 0.050 10^3/ul (0.0-0.031) Neutrophils # 7.6 10^3/ul (1.6-7.5) Lymphocytes # 2.0 10^3/ul (0.8-2.9) Monocytes # 1.1 10^3/ul (0.3-0.9) Eosinophils # 0.4 10^3/ul (0.0-0.5) Basophils # 0.0 10^3/ul (0.0-0.1) Nucleated Red Blood Cells # 0.0 10^3/ul (0.0-0.0) SHASHI SHIPLEY MD July 04, 2018 17:16
== END 2018-07-04 16:30 | disposition home health service (06) | DRG 829 ==
LOC: E/R 16:38 → 2NE 19:35 → TEL 06-29 11:39 → UNDODISIN 07-01 18:42 → TEL 07-02 15:40 → MS1 07-03 16:35
PROVIDERS: ADMIT Family Medicine; ATTEND Internal Medicine
PROC: 0W9B30Z Drainage of Left Pleural Cavity with Drainage Device, Percutaneous Approach (ICD-10-PCS; principal; 2018-06-21)
PROC: 0BNK4ZZ Release Right Lung, Percutaneous Endoscopic Approach (ICD-10-PCS; 2018-06-29)
PROC: 0BBN4ZX Excision of Right Pleura, Percutaneous Endoscopic Approach, Diagnostic (ICD-10-PCS; 2018-06-29)
PROC: 0W9930Z Drainage of Right Pleural Cavity with Drainage Device, Percutaneous Approach (ICD-10-PCS; 2018-06-29)
PROC: 0BJ08ZZ Inspection of Tracheobronchial Tree, Via Natural or Artificial Opening Endoscopic (ICD-10-PCS; 2018-06-29)
PROC: 02H633Z Insertion of Infusion Device into Right Atrium, Percutaneous Approach (ICD-10-PCS; 2018-07-04)
PROC: B244ZZZ Ultrasonography of Right Heart (ICD-10-PCS; 2018-07-04)
DX: C45.7 Mesothelioma of other sites (principal); J96.01 Acute respiratory failure with hypoxia; J90 Pleural effusion, not elsewhere classified; J93.9 Pneumothorax, unspecified; Z77.090 Contact with and (suspected) exposure to asbestos; Z87.891 Personal history of nicotine dependence
CPT/HCPCS: 36415; 36561; 70552; 71045; 71250; 71260; 74178; 75989; 76942; 80048; 80053; 80061; 80069; 82040; 82042; 82103; 82105; 82150; 82378; 82945; 83036; 83615; 83735; 83880; 83986; 84100; 84155; 84157; 84443; 84484; 85025; 85610; 85730; 86300; 86301; 86304; 86430; 87070; 87102; 87116; 88104; 88305; 88307; 88313; 88341; 88342; 89051; 93005; 93306; C1729; J0690; J1170; J1644; J1650; J2250; J2270; J2405; J2710; J3010; J7040; Q9967

== ENCOUNTER 2018-12-28 10:23 | Inpatient (IN) | payer MEDICAID, OTHER ==
[~2018-12-28] VITALS: Ht 162.6 cm; Wt 65.2 kg
[~2018-12-28 10:23] MED LIST: ACET325T33 PO; NEOM28OI2 TOP
[2018-12-28] MEDS ORDERED: PIPER-TAZO 3.375 GM IV (PMX) 100 ML IVPB ONE (13:30)
[2018-12-28] MEDS ORDERED: VANCOMYCIN 1 GM (PMX) 250 ML IVPB ONE (13:30)
[2018-12-28] MEDS ORDERED: ONDANSETRON 4 MG INJ IV PRN ×2 (14:00→18:30)
[2018-12-28] MEDS ORDERED: ACETAMINOPHEN 325 MG TAB PO PRN (14:00)
[2018-12-28] MEDS ORDERED: ZOLPIDEM 5 MG TAB PO PRN (18:30)
[2018-12-28] MEDS ORDERED: morphine 2 MG INJ IV PRN (18:30)
[2018-12-28] MEDS ORDERED: HYDROCODONE/APAP (5/325) TAB PO PRN (18:30)
[2018-12-28] MEDS ORDERED: NACL 0.9% 3 ML SYG IV SCH (18:30)
[2018-12-28] MEDS ORDERED: DOCUSATE SODIUM 100 MG CAP PO PRN (18:30)
[2018-12-28 20:35] VITALS: BP 112/72; PULSE 85; RESP 20
[2018-12-28 21:09] VITALS: Ht 162.6 cm; Wt 65.2 kg
[2018-12-29 02:11] VITALS: BP 114/75; PULSE 88; RESP 18
[2018-12-29 08:00] VITALS: BP 118/85; PULSE 82; RESP 17
[2018-12-29 13:21] VITALS: BP 143/62; PULSE 85; RESP 16
[2018-12-29 14:00] VITALS: BP 117/75; PULSE 89; RESP 18
[2018-12-29 20:00] VITALS: BP 136/91; PULSE 89; RESP 18
[2018-12-30 02:00] VITALS: BP 114/79; PULSE 81; RESP 17
[2018-12-30 08:00] VITALS: BP 114/78; PULSE 96; RESP 16
[2018-12-30] MEDS: ACETAMINOPHEN 325 MG TAB PO PRN (09:27)
[2018-12-30 14:00] VITALS: BP 122/76; PULSE 82; RESP 16
[2018-12-30 20:27] VITALS: BP 113/72; PULSE 88; RESP 22
[2018-12-31 02:15] VITALS: BP 110/72; PULSE 87; RESP 20
[2018-12-31 08:00] VITALS: BP 112/75; PULSE 90; RESP 16
[2018-12-31 14:00] VITALS: BP 109/71; PULSE 85; RESP 16
[2018-12-31] MEDS: ACETAMINOPHEN 325 MG TAB PO PRN (15:00)
[2018-12-31 19:52] VITALS: BP 124/58; PULSE 60; RESP 87
[2018-12-31 19:55] VITALS: RESP 18
[2019-01-01 02:21] VITALS: BP 126/81; PULSE 89; RESP 89
[2019-01-01 02:35] VITALS: RESP 19
[2019-01-01 08:21] VITALS: BP 121/82; PULSE 89; RESP 18
[2019-01-01] MEDS: ENOXAPARIN 40 MG/0.4 ML SYG SC SCH (09:29)
[2019-01-01] MEDS: ACETAMINOPHEN 325 MG TAB PO PRN (11:14)
[2019-01-01 14:00] VITALS: BP 108/73; PULSE 93; RESP 18
[2019-01-01] MEDS ORDERED: LIDOCAINE 1% (MDV) 20 ML INJ ONE (19:08)
[2019-01-01 20:38] VITALS: BP 117/71; PULSE 93; RESP 18
[2019-01-02 03:21] VITALS: BP 116/70; PULSE 88; RESP 16
[2019-01-02 08:33] VITALS: BP 115/76; PULSE 90; RESP 18
[2019-01-02] MEDS: ENOXAPARIN 40 MG/0.4 ML SYG SC SCH (09:40)
[2019-01-02 15:14] VITALS: BP 110/77; PULSE 88; RESP 18
[2019-01-02] MEDS ORDERED: HEPARIN (100 UNITS/ML) 5 ML SYG CATHETER ONE (15:30)
== END 2019-01-02 16:00 | disposition home or self-care (01) | DRG 844 ==
LOC: E/R 10:23 → 5EC 13:37
PROVIDERS: ADMIT Internal Medicine; ATTEND Internal Medicine
PROC: 0WPBX0Z Removal of Drainage Device from Left Pleural Cavity, External Approach (ICD-10-PCS; principal; 2019-01-01)
DX: C45.7 Mesothelioma of other sites (principal); T85.698A Other mechanical complication of other specified internal prosthetic devices, implants and grafts, initial encounter; J91.8 Pleural effusion in other conditions classified elsewhere; R06.03 Acute respiratory distress; R07.9 Chest pain, unspecified; Z87.891 Personal history of nicotine dependence
CPT/HCPCS: 36415; 36589; 71045; 71250; 80048; 80053; 83735; 83880; 84100; 84484; 85025; 85610; 85730; 93005; J1642; J1650; J2543; J3370